=== PATIENT | female | born 1945 | race Caucasian/White ===

== ENCOUNTER → 2023-10-05 12:33 | Outpatient (REF) | payer MEDICARE, OTHER, SELFPAY | LOC: DHVS 12:33 | PROVIDERS: ATTENDING PHYSICIAN Surgery Vascular Surgery; FAMILY PHYSICIAN Family Medicine | DX: I77.9 Disorder of arteries and arterioles, unspecified (principal); I77.1 Stricture of artery | CPT/HCPCS: 93880; 93922; 93923; 93925; 93930 ==

== ENCOUNTER → 2024-01-28 15:51 | Outpatient (REF) | payer MEDICARE, OTHER, SELFPAY | LOC: HWRCS 15:51 | PROVIDERS: ATTENDING PHYSICIAN Internal Medicine Cardiovascular Disease; FAMILY PHYSICIAN Family Medicine | DX: I48.91 Unspecified atrial fibrillation (principal); R06.02 Shortness of breath | CPT/HCPCS: 93306 ==

== ENCOUNTER 2024-03-09 09:04 | Day surgery (SDC) | payer MEDICARE, OTHER, SELFPAY ==
--- NOTE | 2024-03-09 12:09 | ITS.CL.CARDI ---
[facility] - Cardioversion
Cardioversion
Procedure Report:
Procedure: Direct current electrical cardioversion
Pre-operative diagnosis: Persistent atrial fibrillation
Post-operative diagnosis: Persistent atrial fibrillation status post DC cardioversion to sinus rhythm
Anesthesia: MAC
Attending Physician: Matthew Mccray MD
Procedure Description: The patient was brought to the electrophysiology laboratory in the fasting state. Adherence to anticoagulation regimen was confirmed. Informed consent was obtained from the patient prior to the start of the procedure.
Electrodes were placed on the patient and connected to an external defibrillator. Monitoring of blood pressure, ECG tracings, and pulse oximetry was initiated. The pads were applied to the patient in the anterior and posterior positions. The patient
was sedated by the anesthesiologist. A 200 joule biphasic synchronized shock was delivered to the patient under MAC anesthesia. Sinus rhythm was successfully restored. The patient recovered uneventfully from MAC anesthesia. There were no immediate
post-procedure complications. The patient left the lab in good condition. The attending physician was present throughout the entire procedure.
Impression: Successful direct current cardioversion with yarsani of sinus rhythm after one 200 joule biphasic synchronized shock.
== END 2024-03-09 14:00 | disposition home or self-care (01) ==
LOC: CATH 09:04
PROVIDERS: ATTENDING PHYSICIAN Internal Medicine Cardiovascular Disease; FAMILY PHYSICIAN Family Medicine; OTHER PHYSICIAN Internal Medicine Cardiovascular Disease
DX: I48.19 Other persistent atrial fibrillation (principal); Z79.82 Long term (current) use of aspirin; Z79.899 Other long term (current) drug therapy; Z87.891 Personal history of nicotine dependence; R06.02 Shortness of breath; R07.89 Other chest pain; I34.0 Nonrheumatic mitral (valve) insufficiency; I07.1 Rheumatic tricuspid insufficiency; I70.0 Atherosclerosis of aorta
CPT/HCPCS: 93312; 93320; 93325; 92960; 93005

== ENCOUNTER 2024-03-10 09:50 | Inpatient (IN) | payer MEDICARE, OTHER, SELFPAY ==
[2024-03-10] VITALS (11 sets, daily range): BP systolic 107–172; BP diastolic 52–93; BMI 36.0; BMI 32.7
[2024-03-10 06:43] LABS: % Eosinophils 2.5 % (0-6); % Immature Granulocytes 0.6 % (0-0.5); % Lymphocytes 12.5 % (20.5-51.1); % Monocytes 7.4 % (1.7-9.3); Absolute Basophils 0.1 10^3/uL (0-0.2); Absolute Eosinophils 0.2 10^3/uL (0-0.7); Absolute Immature Granulocytes 0.1 10^3/uL (0-0.05); Absolute Monocytes 0.6 10^3/uL (0.1-0.6); Absolute Neutrophils 6.1 10^3/uL (1.4-6.5); Hematocrit 37.6 % (37.0-47.0); Mean Corp Hgb Conc. 34.6 g/dL (33.0-37.0); Mean Corpuscular Volume 86.8 fL (81.0-99.0); Nucleated Red Blood Cells % 0 %; Platelet Count 192 10^3/uL (130-400); Red Blood Cell Count 4.33 10^6/uL (4.20-5.40); Red Cell Dist. Width 12.9 % (11.5-14.5)
--- NOTE | 2024-03-10 06:52 | ED.GENMED ---
History of Present Illness
General
Chief Complaint: Breathing Problem
Source: patient and family
Exam Limitations: none
Time Seen by Provider: 03/10/24 06:38
Nursing documentation reviewed up to this point in time: agreed with
History of Present Illness
History of Present Illness:
78-year-old female presents emergency room complaining of shortness of breath and wheezy chest tightness and itching that began at 3 AM. Yesterday she had cardioversion.
Past History
Past History
ED Past Medical History: Arrthythmia (Atrial fibrillation), Cancer (Skin), GERD, HTN, Hypercholesterolemia, Psychiatric (anxiety) and Other (PAD)
ED Past Surgical History: Cholecystectomy, Gynecological (tubal ligation) and Tonsilectomy
Patient has exhibited threatening behavior?: No
PSI?: No
Social History
Tobacco: Former smoker
Alcohol: None
Personal:
Living: with family
Review of Systems
Review of Systems
Allergies reviewed?: Yes
All Other Systems: Not applicable
Constitutional: Reports no symptoms
EENT: Reports no symptoms
Respiratory: Reports cough and trouble breathing
Cardiac: Reports no symptoms
ABD/GI: Reports no symptoms
: Reports no symptoms
Musculoskeletal: Reports no symptoms
Skin: Reports itching
Neurological: Reports no symptoms
Endocrine: Reports no symptoms
Hematologic/Lymphatic: Reports no symptoms
Psychiatric: Reports no symptoms
Phy Exam
Physical Exam
Physical Exam:
Physical Exam
General: no apparent distress, not acutely ill
Neck: supple. no meningeal signs. normal posterior pharynx
Heart: s1/s2 regular rate and rhythm, no murmur. equal radial
pulses.
HEENT: Pupils equal round reactive to light, EOMI
Lungs: no acute respiratory distress. Mild decreased breath sounds bilaterally bilaterally
Abdomen: normal bowel sounds. not tender. no CVAT
Neuro: alert and oriented. no focal neurological deficits cranial nerves II through XII intact
Skin: no rash
Psychiatric: well kept. interactive and cooperative
Extremities: no edema. no calf tenderness. negative homans. good distal pulses
Scores
Heart Failure Risk
Heart Failure Risk Score: Yes
History of Stroke or TIA: No
History of intubation for respiratory distress: No
Heart rate on ED arrival >/= 110: No
SaO2 <90% on arrival on room air: Yes
HR >/=110 during 3min walk test (or too ill to perform test): No
ECG has acute ischemic changes: No
Urea >/=12mmol/L (BUN 33.6mg/dL): No
Serum CO2>/=35mmol/L: No
Troponin I or T elevated to IL Level (0.4mg/dL): No
NT-proBNP >/=5,000ng/L (5,000pg/ml): No
HF Risk Score: 1
Admission Status: MEDIUM RISK 5.1% Consider observation or discharge to home with homecare & f/u visit to PCP/Field Representatives Director, or SNF for treatment
Course
Orders/Labs/Results
Orders:
Orders
03/10/24 06:34
Electrocardiogram (*1) Urgent
Reason for Study: Other
Other Reason for Exam: Respiratory Distress
Cardiac Monitoring- Treatment ONCE
EKG- Treatment ONCE
IV Insert/Care/Rem.- Treatment PRN
CR Chest - 2 Views Urgent
Comment:
Reason For Exam: respiratory distress
O2 Therapy [RESP] Urgent
Titrate/Wean O2 to maintain O2 sat greater than (%): 93
Special Instructions: TO MAINTAIN CONTINUOUS O2 SATS >/= 93%
Pulse Ox/cont/shift [RESP] Urgent
Quantity: 1
Special Instructions: continuous pulse ox
03/10/24 06:37
Complete Blood Count/With Diff Urgent
Comprehensive Metabolic Panel Urgent
NT-proBNP Urgent
Troponin I Urgent
03/10/24 06:46
Ipratropium/Albuterol Sulfate [Duoneb] 3 ml INH R NOW STA
03/10/24 07:32
Potassium Chloride 10% Elixir [KCl Elixir] 40 meq PO NOW STA
03/10/24 07:33
Potassium Chloride [KCl] 40 meq 0.9% Sodium Chloride 250 ml [Nss] 250 ml IV NOW
Abnormal Lab Results
03/10/24
06:37
MPV 11.0 H fL
(7.4-10.4)
Abs Immat Gran (auto) 0.1 H 10^3/uL
(0-0.05)
Absolute Lymphs (auto) 1.0 L 10^3/uL
(1.2-3.4)
Immature Gran % 0.6 H %
(0-0.5)
Neutrophils % 76.0 H %
(42.2-75.2)
Lymphocytes % 12.5 L %
(20.5-51.1)
Potassium 3.3 L mmol/L
(3.5-5.1)
BUN 22 H mg/dl
(7-17)
Glucose 118 H mg/dl
(70-99)
AST 66 H U/L
(14-36)
ALT 52 H U/L
(0-35)
03/10/24 06:37
03/10/24 06:37
Vital Signs
Initial and Last Documented VS:
Initial Vital Signs
Temp Pulse Resp BP Pulse Ox
98 F 66 26 148/62 94
03/10/24 06:05 03/10/24 06:05 03/10/24 06:05 03/10/24 06:05 03/10/24 06:05
Last Documented Vital Signs
Temp Pulse Resp BP Pulse Ox
98 F 63 19 148/62 94
03/10/24 06:05 03/10/24 06:31 03/10/24 06:31 03/10/24 06:05 03/10/24 06:05
MDM/Problems Addressed
Differential Diagnosis Includes:
Pneumonia, CHF
MDM/Problems Addressed:
78-year-old female with acute CHF exacerbation. Normal sinus rhythm. Hypokalemia. Replete potassium, prior to giving diuretic. Admit to hospitalist.
Chronic conditions affecting care: Arrhythmia
Acute Exacerbation and/or Progression of Chronic Illness: Arrhythmia
*Radiology
Radiology exam reviewed: radiology read reviewed (Chest x-ray shows pulmonary congestion right pleural effusion)
*Pulse Oximetry
Patient hypoxic: yes
*EKG
Interpreted by ED Provider?: Yes
EKG Intrepretation Date: 03/10/24
EKG Intrepretation Time: :24
Interpretation: abnormal
Comparison EKG: changes noted
Heart Rate: 64
Rate: normal
Rhythm: sinus and PVC's
[place]: normal axis
Interval: normal interval
QRS Pattern: normal QRS
Ischemia: non-specific ST changes
*Motor Teacher Interpretation
Rate: normal
Interpretation: normal
Heart Rate: 66
Rhythm: sinus
*Critical Care Note
Total Time (30-74mins, 75-104mins- exclusive of procedures): Not Applicable
Data Reviewed
Review of Other/Old Records Reveals: Records (MADELAINE, cardioversion on 03/09/[address] Villatoro.)
Source: records
Prescriptions/Medications Considered But Not Given:
Lasix held until potassium repleted
Further Testing Considered But Not Given:
CT chest not indicated
Patient Management
Social determinants of health affecting care: Living situation
Discussion with other providers: Hospitalist
Escalation/DeEscalation of care consider admission/obs:
Admit indicated
ED Attending Note
-
Portions of this chart may have been created with voice recognition software.� Occasional wrong word or��sound alike� substitutions may have occurred due to the inherent limitations of voice recognition software.
Discharge Plan
Departure
Patient Disposition: Admit
Date of Disposition: 03/10/24
Time of Disposition: 07:33
Admit to: Telemetry
Presentation/result/management discussed w/ accepting MD/DO: Hospitalist
Patient with high blood pressure during this ER visit?: Yes
Discharge Problem:
Acute exacerbation of chronic heart failure, Hypoxia, Acute hypokalemia
Prescriptions:
No Action
cholecalciferol (vitamin D3) 1,000 UNITS tablet
2,000 units PO DAILY
cyanocobalamin (vitamin B-12) 1,000 MCG tablet
1,000 mcg PO DAILY
flaxseed oil 1,000 MG capsule
1,000 mg PO DAILY
diazepam 5 MG tablet
5 - 10 mg PO HSPRN PRN (Reason: ANXIETY)
coenzyme Q10 [Co Q-10] 200 MG capsule
200 mg PO DAILY
turmeric 400 MG capsule
500 mg PO DAILY
ascorbic acid (vitamin C) [Vitamin C] 500 MG tablet
500 mg PO DAILY
hydrochlorothiazide 25 mg tablet
25 mg PO DAILY
famotidine [Pepcid] 40 mg Tablet
40 mg PO DAILYPRN PRN (Reason: gerd)
diltiazem HCl 180 mg Capsule,Extended Release 24hr
180 mg PO DAILY Qty: 30 11RF
Eliquis 5 mg Tablet
5 mg PO BID Qty: 60 11RF
Aspir-81
81 mg PO DAILY
metoprolol succinate 25 mg Tablet Extended Release 24 Hr
25 mg PO BID
Referrals:
Chucky Pierre MD [Family Provider] -
Interventions
Interventions:
*Risk Screen - Suicide Last Done: 03/10/24 06:31
*General Assessment Last Done: 03/10/24 06:31
*Neglect/Abuse Screening Last Done: 03/10/24 06:31
ED- Fall Risk Assessment Last Done: 03/10/24 06:31
*ED COVID-19 Vaccine History Last Done: 03/10/24 06:31
ED- Cardiac Assessment Last Done: 03/10/24 06:31
ED- Pulmonary Assessment Last Done: 03/10/24 06:31
Discharge Date and Time
Print Language: LITHUANIAN
[2024-03-10 07:02] LABS: ALT (SGPT) 52 U/L (0-35); AST (SGOT) 66 U/L (14-36); Albumin 3.9 g/dl (3.5-5.0); Alkaline Phosphatase 71 U/L (38-126); Blood Urea Nitrogen 22 mg/dl (7-17); Calcium 8.9 mg/dl (8.4-10.2); Carbon Dioxide 29 mmol/L (22-30); Chloride 103 mmol/L (98-107); Estimated Creatinine Clearance 67 ml/min; Glucose 118 mg/dl (70-99); Potassium 3.3 mmol/L (3.5-5.1); Sodium 137 mmol/L (135-145); Total Bilirubin 1.3 mg/dl (0.2-1.3); Total Protein 6.4 g/dl (6.3-8.2); eGFR > 60.00
[2024-03-10 07:12] LABS: NT-proBNP 2250 pg/ml; Troponin I < 0.012 ng/ml
--- NOTE | 2024-03-10 07:49 | HPS.HSE ---
Family Physician
-
Family Physician: Chucky Pierre
Chief Complaint
-
Shortness of breath
History of Present Illness
78 female paroxysmal A-fib peripheral arterial disease hyperlipidemia hypertension obesity presents with acute shortness of breath following cardioversion 1 day prior to presentation. Describes ongoing exertional dyspnea since she was first
diagnosed with A-fib exercise intolerance. Became short of breath at rest while sleeping at night prompting visit to ED. Reports chest tightness with shortness of breath denies pain palpitations fevers chills coughing constipation. Tachypneic but
otherwise vital signs stable on 2 L oxygen for comfort. Chest x-ray appreciated borderline CHF small left pleural effusion. EKG noted premature supraventricular complexes otherwise normal sinus rhythm. Heart rate controlled. BNP elevated 2250.
Endorses weight gain unspecified amount duration difficulty lying flat orthopnea. Ambulates without assist at baseline
Medical History
Past Medical History
Past Medical History: Reports Other (As above)
Past Surgical History: Reports Other (As above)
Social History
Tobacco: Former Smoker
Alcohol: None
Drug: None
Personal:
Living: With Family
Family History
Family History: Not pertinent (Reviewed)
Allergies / Home Medications
Allergies reflects when Allergies were last updated in [facility].
Home Medications with original date entered in [facility]
Allergy/Medication List:
Allergies
Allergy/AdvReac Type Severity Reaction Status Date / Time
amlodipine Allergy Unknown Verified 03/10/24 07:23
amoxicillin Allergy Pt does Verified 03/10/24 06:05
not
belieive
this is an
allergy
benazepril Allergy Hives Verified 03/10/24 06:05
codeine Allergy Nausea / Verified 03/10/24 06:05
Vomiting
dextromethorphan Allergy Itching, Verified 03/10/24 06:05
[From NyQuil] migraine
doxylamine [From NyQuil] Allergy Itching, Verified 03/10/24 06:05
migraine
gatifloxacin [From Tequin] Allergy Shortness Verified 03/10/24 06:05
of Breath,
Hives
hydromorphone [From Dilaudid] Allergy headache Verified 03/10/24 06:05
pseudoephedrine [From NyQuil] Allergy Itching, Verified 03/10/24 06:05
migraine
red dye Allergy Hives Verified 03/10/24 06:05
Gnottzh-[id number]-TfV Reductase Allergy Aches Verified 03/10/24 06:05
Inhibitor
trifluoperazine Allergy seizure - Verified 03/10/24 06:05
[From Stelazine] 1974
Home Medications
cholecalciferol (vitamin D3) 25 mcg (1,000 unit) tablet 1,000 units PO NOON Supplement 01/09/22
coenzyme Q10 200 mg capsule (Co Q-10) 200 mg PO NOON Supplement 01/09/22
cyanocobalamin (vitamin B-12) 1,000 mcg tablet 1,000 mcg PO NOON Supplement 01/09/22
diazepam 5 mg tablet 5 - 10 mg PO HSPRN PRN ANXIETY 01/09/22
flaxseed oil 1,000 mg capsule 1,000 mg PO NOON herbal supplement 01/09/22
turmeric 400 mg capsule 400 mg PO NOON herbal supplement 01/09/22
ascorbic acid (vitamin C) 500 mg tablet (Vitamin C) 500 mg PO NOON Supplement 01/19/22
hydrochlorothiazide 25 mg tablet 25 mg PO DAILY Fluid retention/Swelling 11/24/22
apixaban 5 mg tablet (Eliquis) 5 mg PO BID Blood clot prevention/tx #60 tabs 05/31/23
metoprolol succinate 25 mg tablet,extended release 24 hr 25 mg PO BID 03/09/24
aspirin 81 mg tablet,delayed release 81 mg PO DAILY 03/10/24
famotidine 20 mg tablet (Pepcid) 20 mg PO DAILYPRN PRN gerd 03/10/24
magnesium oxide 400 mg (241.3 mg magnesium) tablet 400 mg PO NOON 03/10/24
Review of Systems
-
A 12 point ROS was completed and negative except as noted: Yes
Constitutional: Reports Other (As below)
Physical Exam
Vital Signs
Vital Signs
Temp Pulse Resp BP Pulse Ox
98 F 63 19 148/62 95
03/10/24 06:05 03/10/24 06:31 03/10/24 06:31 03/10/24 06:05 03/10/24 07:24
Physical Exam
General: Other (As below)
Laboratory Results
-
03/10/24 06:37
03/10/24 06:37
Laboratory Results
Total Bilirubin 1.3 mg/dl (0.2-1.3) 03/10/24 06:37
AST 66 U/L (14-36) H 03/10/24 06:37
ALT 52 U/L (0-35) H 03/10/24 06:37
Alkaline Phosphatase 71 U/L (38-126) 03/10/24 06:37
Troponin I < 0.012 ng/ml 03/10/24 06:37
Impression/Plan
-
ROS
General: Denies fever chills night sweats unexpected weight loss
Neuro: Denies seizure shaking loss of consciousness dizziness vertigo
Psych: denies depression hallucinations confusion manic episodes
Endocrine: Denies polyuria polydipsia polyphagia heat/cold intolerance
HEENT: Denies blindness visual disturbances epistaxis
Pulmonary: reports sob
Cardiovascular: Reports chest tightness denies chest pain palpitations leg swelling
Hematology: denies signs symptoms of anemia easy bruising/bleeding
Gastrointestinal: denies nausea vomiting diarrhea constipation hematemesis hematochezia melena
Genito-Urinary: denies retention incontinence dysuria
Musculoskeletal: denies joint pain weakness
Dermatology: denies rash laceration bruising
Physical Exam
General: No pallor, cyanosis, or jaundice.
HEENT: Throat clear. PERRLA Normocephalic atraumatic
NECK: Supple. No JVD Carotid Bruits
RESPIRATORY: Bibasilar crackles mild
CVS: S1, S2 normal. RRR. No murmur, rub or gallop.
ABDOMEN: Soft, non-tender. No distension. BS+/normal.
EXTREMITIES: No peripheral cyanosis or edema.
VISUAL COORDINATOR: AOx3. No focal deficits.
IMPRESSION:
78 female paroxysmal A-fib peripheral arterial disease hyperlipidemia hypertension obesity presents with acute shortness of breath following cardioversion 1 day prior to presentation. Describes ongoing exertional dyspnea since she was first
diagnosed with A-fib exercise intolerance. Became short of breath at rest while sleeping at night prompting visit to ED. Reports chest tightness with shortness of breath denies pain palpitations fevers chills coughing constipation. Tachypneic but
otherwise vital signs stable on 2 L oxygen for comfort. Chest x-ray appreciated borderline CHF small left pleural effusion. EKG noted premature supraventricular complexes otherwise normal sinus rhythm. Heart rate controlled. BNP elevated 2250.
Endorses weight gain unspecified amount duration difficulty lying flat orthopnea. Ambulates without assist at baseline
PLAN:
#Suspected acute HFpEF
#A-fib status post successful cardioversion
Telemetry admit
Cardio eval
IV Lasix 20 mg twice daily
Daily weight I/O
Recent MADELAINE appreciated preserved EF 55 to 60% no significant valve abnormalities
BNP 2200s, initial troponin negative repeat if remains negative no need to trend
Continue Eliquis metoprolol with holding parameters
PT OT eval
#Hypokalemia
monitor and replete as necessary especially while on lasix diuresis
#PAD
#Hyperlipidemia
Continue aspirin
Cholesterol-lowering diet
#Hypertension
Hold HCTZ while on Lasix
Continue metoprolol as above
#Obesity
DVT prophylaxis Eliquis
Meds reconciled and resume as appropriate
Full code
Discussed with patient and patient's daughter Yaritza at bedside
I spent a total of 80 minutes with the patient or on the floor. More than 50% of this time involved counseling and coordination of care.
[2024-03-10] MEDS: KCL ELIXIR 40 MEQ PO (07:52)
[2024-03-10] MEDS: KCL 270 MEQ IV (07:54)
--- NOTE | 2024-03-10 11:38 | PTCARENOTE ---
received pt from the ER into 2244, sinus rhythm on tele, VSS, pox 96% on 2L NC. Interview questions and nursing assessment completed. Pt was oriented to tele room, questions encouraged.
--- NOTE | 2024-03-10 11:40 | CON.CAR ---
Addendum entered and electronically signed by Matthew Mccray MD 03/10/24 15:35:
I saw and examined the patient.
The District Director's note was reviewed and I agree with the note.
Comment: Briefly, 78-year-old woman past medical history of persistent atrial fibrillation who presents with dyspnea found to be hypoxic with elevated proBNP and evidence of pulmonary vascular congestion on chest x-ray all consistent with acute
decompensated heart failure
Plan for twice daily IV Lasix
Wean oxygen as able
Monitor daily weights, renal function and electrolytes
Given hypokalemia she may be a good candidate for spironolactone, will add to start tomorrow AM
Plan to discharge on Lasix in place of hydrochlorothiazide
Currently maintaining sinus rhythm after direct-current cardioversion on 03/09/2024
Continue metoprolol
Continue Eliquis for cardioembolic prophylaxis
Scheduled for pulmonary vein isolation later this month with Dr. Aldana
Original Note:
Consultation
Consultation Request
Date/Time Consultation Performed: 03/10/24
Requesting Provider: Dr. Culver
Performing Provider: Izabela Rm PA-C for Dr. Mccray
Reason for Consultation: CHF
Medical History
-
Chief Complaint: SOB
History of Present Illness:
Patient with history of PAF on eliquis, scheduled for upcoming ablation with Dr. Nick 03/28/24 underwent successful MADELAINE/CV 03/09 at . She reports over the last several days she had noted bloating in her belly, however then last night post CV had
SOB causing her to return to [facility] this morning. ProBNP 2250 and CXR with evidence of small L pleural effusion and CHF. Reports some chest tightness associated with taking deep breath but no CP. In SR by EKG/tele.
PMH:
Paroxysmal Afib s/p successful MADELAINE/CV 03/09/24
OAC with eliquis
Multiple medication intolerances
PAD
s/p left femoral endarterectomy 2021
right subclavian stenosis
Hyperlipidemia with statin and Zetia intolerance
HTN
Past Medical History
Past Medical History: Other
Past Surgical History: Cholecystectomy, Tonsilectomy and Other (Left femoral endarterectomy 03/2022)
Social History
Tobacco: Former Smoker
Alcohol: None
Drug: None
Personal:
Living: With Family
Family History
Family History: Other (father with CAD s/p CABG and Afib, daughter from multiple myeloma in 2020)
Allergies / Home Medications
Allergy/AdvReac Type Severity Reaction Status Date / Time
amlodipine Allergy Unknown Verified 03/10/24 07:23
amoxicillin Allergy Pt does Verified 03/10/24 06:05
not
belieive
this is an
allergy
benazepril Allergy Hives Verified 03/10/24 06:05
codeine Allergy Nausea / Verified 03/10/24 06:05
Vomiting
dextromethorphan Allergy Itching, Verified 03/10/24 06:05
[From NyQuil] migraine
doxylamine [From NyQuil] Allergy Itching, Verified 03/10/24 06:05
migraine
gatifloxacin [From Tequin] Allergy Shortness Verified 03/10/24 06:05
of Breath,
Hives
hydromorphone [From Dilaudid] Allergy headache Verified 03/10/24 06:05
pseudoephedrine [From NyQuil] Allergy Itching, Verified 03/10/24 06:05
migraine
red dye Allergy Hives Verified 03/10/24 06:05
Igyzrvy-XJH-NnW Reductase Allergy Aches Verified 03/10/24 06:05
Inhibitor
trifluoperazine Allergy seizure - Verified 03/10/24 06:05
[From Stelazine] 1974
�Medication �Instructions �Recorded �Confirmed �Type
cholecalciferol (vitamin D3) 25 1,000 units PO NOON Supplement 01/09/22 03/10/24 History
mcg (1,000 unit) tablet
coenzyme Q10 200 mg capsule (Co 200 mg PO NOON Supplement 01/09/22 03/10/24 History
Q-10)
cyanocobalamin (vitamin B-12) 1,000 mcg PO NOON Supplement 01/09/22 03/10/24 History
1,000 mcg tablet
diazepam 5 mg tablet 5 - 10 mg PO HSPRN PRN ANXIETY 01/09/22 03/10/24 History
flaxseed oil 1,000 mg capsule 1,000 mg PO NOON herbal supplement 01/09/22 03/10/24 History
turmeric 400 mg capsule 400 mg PO NOON herbal supplement 01/09/22 03/10/24 History
ascorbic acid (vitamin C) 500 mg 500 mg PO NOON Supplement 01/19/22 03/10/24 History
tablet (Vitamin C)
hydrochlorothiazide 25 mg tablet 25 mg PO DAILY Fluid 11/24/22 03/10/24 History
retention/Swelling
apixaban 5 mg tablet (Eliquis) 5 mg PO BID Blood clot 05/31/23 03/10/24 Rx
prevention/tx #60 tabs
metoprolol succinate 25 mg 25 mg PO BID 03/09/24 03/10/24 History
tablet,extended release 24 hr
aspirin 81 mg tablet,delayed 81 mg PO DAILY 03/10/24 03/10/24 History
release
famotidine 20 mg tablet (Pepcid) 20 mg PO DAILYPRN PRN gerd 03/10/24 03/10/24 History
magnesium oxide 400 mg (241.3 mg 400 mg PO NOON 03/10/24 03/10/24 History
magnesium) tablet
Review of Systems
-
History Source: Patient and Family
All other systems: Negative unless noted
Physical Exam
Vital Signs
Temp Pulse Resp BP Pulse Ox
98 F 67 25 172/86 94
03/10/24 06:05 03/10/24 11:00 03/10/24 10:45 03/10/24 10:55 03/10/24 10:30
Lab Results
03/10/24 06:37
03/10/24 06:37
Troponin I < 0.012 ng/ml 03/10/24 06:37
Glg-J-Eotuxreydts Pept 2250 pg/ml 03/10/24 06:37
Physical Exam
General: No Apparent Distress, Comfortable and Other (on supp O2)
HEENT: Normocephalic, Anicteric and Moist Mucous Membranes
Respiratory: Crackles (B/L lung bases)
Cardiac: S1/S2 and Regular Rhythm
GI: Soft, Non Tender, Normal Bowel Sounds and Distended (mild)
Musculoskeletal: No Clubbing, No Cyanosis and No Edema
Skin: Warm and Dry
Neuro: AO x 3
Impression / Plan
-
Primary Sausage Wrapper: Dr. Mccray
Primary EP: Dr. Nick
Assessment:
Presentation with SOB
Acute HFpEF
Hypokalemia
Mild transaminitis, possible passive congestion from above
Paroxysmal Afib s/p successful MADELAINE/CV 03/09/24
OAC with eliquis
Multiple medication intolerances
PAD
s/p left femoral endarterectomy 2021
right subclavian stenosis
Hyperlipidemia with statin and Zetia intolerance
HTN
ECHO 01/28/24: EF 61%, no regional wall motion abnormalities noted, mild concentric LVH, mild MR, mild TR, PAP 25-30 mmHg
Plan:
-Patient presents with SOB
-proBNP 2250 and CXR with evidence of CHF
-trop negative x1
-IV lasix diuresis. on HCTZ 25mg daily prior to admission, will hold for now
-replete K
-with mild LFT elevation, follow with diuresis, possible passive congestion
-wean supp O2 as able
-echo 01/27 with preserved EF, confirmed by MADELAINE 03/09
-fortunately remains in SR by review of EKG/tele
-continue toprol, eliquis
-planned for ablation 03/28, will keep appt
-d/w nursing. d/w patient and daughter at bedside
Data Reviewed
-
EKG: Tracing Personally Visualized and interpreted
Radiology: Report Reviewed by me
Medical Tests (Nuc Med, Echo etc): Report Reviewed by me
Labs: Labs Reviewed by me
Old Records: Reviewed
[2024-03-10] MEDS: MAG-TAB SR 84 MG PO (11:57)
[2024-03-10] MEDS: VITAMIN C 500 MG PO (11:57)
[2024-03-10] MEDS: VITAMIN D3 (cholecalciferol) 25 MCG PO (11:57)
[2024-03-10] MEDS: VITAMIN B-12 1000 MCG PO (11:57)
[2024-03-10] MEDS: ASPIR LOW (ENTERIC COATED) 81 MG PO (11:57)
[2024-03-10] MEDS: TOPROL XL 25 MG PO ×2 (11:57→21:42)
[2024-03-10] MEDS: ELIQUIS 5 MG PO ×2 (11:57→20:26)
[2024-03-10] MEDS: LASIX 20 MG IV ×2 (11:58→16:15)
--- NOTE | 2024-03-10 12:50 | CM ---
Reviewed chart. Met with Mrs. Alexandre and her daughter to review discharge plans. She states prior to admission she resides with her spouse in a one story home without any steps to enter. She has a full flight of steps to get to basement for the
laundry room. She states prior to admission she was independent with ambulation and adls. She states she does not have any DME in the home. She states she has a prescription plan and uses [facility]. She states she has not needed [facility]NA
services in the past. She does not feel she will need VNA Services at this time. Medical work-up in progress. The discharge plan is to return home with her spouse when medically stable.
[2024-03-10 13:17] LABS: Troponin I < 0.012 ng/ml
[2024-03-10 15:01] LABS: TSH Reflex To Free T4 1.32 uIU/ml (0.47-4.68)
--- NOTE | 2024-03-10 17:00 | PTCARENOTE ---
Assumed care of Pt, Rossana,A+O, offers no complaints, currently eating her dinner.
[2024-03-10] MEDS: KLOR-CON 20 MEQ PO (20:26)
[2024-03-10] MEDS: TYLENOL 650 MG PO (21:41)
[2024-03-11] VITALS (11 sets, daily range): BP systolic 80–136; BP diastolic 47–87; BMI 32.0
--- NOTE | 2024-03-11 01:03 | PTCARENOTE ---
Received patient at change of shift. Resting in chair. BP 109/71, NSR with PACs, HR 70s-90s. Rate increases with exertion. Oxyen 94% on 2L, dyspnic with exertion. Patient ambulating in room and to bathroom. C/o headache, reached out to [facility]
[place] about PRN tylenol. Given for pain-- see MAR. Discussed plan of care and strict I/Os, importance of urine collection and daily weights. Call samaniego within reach.
[2024-03-11 04:57] LABS: Hematocrit 36.1 % (37.0-47.0); Hemoglobin 12.7 g/dL (12.0-16.0); Mean Corp Hgb Conc. 35.2 g/dL (33.0-37.0); Mean Corpuscular Hgb 30.6 pg (27.0-31.0); Mean Platelet Volume 10.8 fL (7.4-10.4); Platelet Count 180 10^3/uL (130-400); Red Blood Cell Count 4.15 10^6/uL (4.20-5.40); White Blood Cell Count 6.5 10^3/uL (4.8-10.8)
[2024-03-11 05:21] LABS: Blood Urea Nitrogen 14 mg/dl (7-17); Calcium 8.4 mg/dl (8.4-10.2); Carbon Dioxide 29 mmol/L (22-30); Chloride 102 mmol/L (98-107); Estimated Creatinine Clearance 90 ml/min; Glucose 94 mg/dl (70-99); Magnesium 1.9 mg/dl (1.6-2.3); Phosphorus 3.7 mg/dl (2.5-4.5); Potassium 3.3 mmol/L (3.5-5.1); Sodium 137 mmol/L (135-145); eGFR > 60.00
--- NOTE | 2024-03-11 05:35 | PTCARENOTE ---
Patient's K came back 3.3 this AM. Reached out to Gail Flor NP. Order placed for an extra dose of Klor-Con 20 meq. See MAR.
[2024-03-11] MEDS: KLOR-CON 20 MEQ PO ×3 (05:43→20:42)
--- NOTE | 2024-03-11 07:12 | W.PN.HOSP.TC ---
Today's Communication/Plan
-
Diuresis Aldactone as per Cardio
Wean O2 supplementation as tolerated
Home oxygen assessment in AM
cont Eliquis metoprolol
monitor and replete electrolytes as necessary
Assessment / Plan
Assessment / Plan
Physical Exam
General: No pallor, cyanosis, or jaundice.
HEENT: Throat clear. PERRLA Normocephalic atraumatic
NECK: Supple. No JVD Carotid Bruits
RESPIRATORY: clear to auscultation b/l
CVS: S1, S2 normal. RRR. No murmur, rub or gallop.
ABDOMEN: Soft, non-tender. No distension. BS+/normal.
EXTREMITIES: No peripheral cyanosis or edema.
ARCHIVAL STUDIES PROFESSOR: AOx3. No focal deficits.
IMPRESSION:
78 female paroxysmal A-fib peripheral arterial disease hyperlipidemia hypertension obesity presents with acute shortness of breath following cardioversion 1 day prior to presentation. Describes ongoing exertional dyspnea since she was first
diagnosed with A-fib exercise intolerance. Became short of breath at rest while sleeping at night prompting visit to ED. Reports chest tightness with shortness of breath denies pain palpitations fevers chills coughing constipation. Tachypneic but
otherwise vital signs stable on 2 L oxygen for comfort. Chest x-ray appreciated borderline CHF small left pleural effusion. EKG noted premature supraventricular complexes otherwise normal sinus rhythm. Heart rate controlled. BNP elevated 2250.
Endorses weight gain unspecified amount duration difficulty lying flat orthopnea. Ambulates without assist at baseline
PLAN:
#Acute HFpEF
#A-fib status post successful cardioversion
Telemetry admit
Cardio eval appreciated Aldactone added
IV Lasix 40 mg twice daily as per Cardio
Daily weight I/O
Recent MADELAINE appreciated preserved EF 55 to 60% no significant valve abnormalities
BNP 2200s,Troponin neg x2
Continue Eliquis metoprolol with holding parameters
PT OT eval
#Hypokalemia
monitor and replete as necessary especially while on Lasix diuresis
#PAD
#Hyperlipidemia
Continue aspirin
Cholesterol-lowering diet
#Hypertension
Hold HCTZ while on Lasix
Continue metoprolol as above
#Obesity
DVT prophylaxis Eliquis
Full code
I spent a total of 57 minutes with the patient or on the floor. More than 50% of this time involved counseling and coordination of care.
Anticipated Discharge: 24 - 48 hours
Subjective/Interval History
-
Date of Service: March 11, 2024
No acute distress sitting up comfortably in chair. Reports overall improvement in symptoms. Appears to have lost 11 lbs since start of diuresis, if [employer] recorded weights are accurate. Denies shortness of breath at rest. Reports ambulating to
and from bed and bathroom w/o issues exertional dyspnea.
Objective Data
-
Labs:
Laboratory Results
03/11/24
04:32
WBC 6.5
Hgb 12.7
Hct 36.1 L
Plt Count 180
Sodium 137
Potassium 3.3 L
Chloride 102
Carbon Dioxide 29
BUN 14
Creatinine 0.6
Glucose 94
Calcium 8.4
Vital Signs:
Vital Signs
Temp Pulse Resp BP Pulse Ox
97.8 F 82 16 133/73 95
03/11/24 04:57 03/11/24 04:45 03/11/24 04:57 03/11/24 04:32 03/11/24 04:57
I&O
03/10/24 03/11/24 03/12/24
06:59 06:59 06:59
Intake Total 350 / 350
Output Total 2260 / 2260
Balance -1909 / -1909
[2024-03-11] MEDS: ASPIR LOW (ENTERIC COATED) 81 MG PO (08:16)
[2024-03-11] MEDS: LASIX 20 MG IV (08:16)
[2024-03-11] MEDS: TOPROL XL 25 MG PO ×2 (08:16→20:42)
[2024-03-11] MEDS: ELIQUIS 5 MG PO ×2 (08:16→20:42)
[2024-03-11] MEDS: ALDACTONE 25 MG PO (08:32)
--- NOTE | 2024-03-11 08:39 | W.PN.CARDCBS ---
Addendum entered and electronically signed by Matthew Mccray MD 03/11/24 15:47:
I saw and examined the patient.
The Liquefied Petroleum Gasfitter's note was reviewed and I agree with the note.
Comment: Briefly, 78-year-old woman past medical history of persistent atrial fibrillation presenting with acute heart failure with preserved ejection fraction
Volume status improving with diuretics, would continue IV diuresis
Remains on supplemental oxygen, wean as able
Aldactone added this morning
In regards to her A-fib, would continue metoprolol and apixaban
Monitor on telemetry, would consider adding amiodarone to maintain sinus rhythm through her ablation which is scheduled later this month
Original Note:
Today's Communication / Plan
-
Continue IV Lasix
Wean supplemental oxygen
Add amiodarone as brief paroxysms of A-fib noted on telemetry overnight
EKG in a.m. to reassess QTc
Replete K. Follow LFTs
Impression / Plan
-
Primary Tourist Camp Attendant: Dr. Mccray
Primary EP: Dr. Nick
Assessment:
Presentation with SOB
Acute HFpEF
Hypokalemia
Mild transaminitis, possible passive congestion from above
Paroxysmal Afib s/p successful MADELAINE/CV 03/09/24
OAC with eliquis
Multiple medication intolerances
PAD
s/p left femoral endarterectomy 2021
right subclavian stenosis
Hyperlipidemia with statin and Zetia intolerance
HTN
ECHO 01/28/24: EF 61%, no regional wall motion abnormalities noted, mild concentric LVH, mild MR, mild TR, PAP 25-30 mmHg
Plan:
-Patient presents with SOB. proBNP 2250 and CXR with evidence of CHF
-she is diuresing well. continue IV lasix. was on HCTZ prior to admission, will plan to transition to lasix upon DC
-replete K
-follow LFTs with diuresis
-wean supp O2 as able
-on review of tele overnight, patient noted to have several brief runs of afib. she was asymptomatic. currently in SR. she is planned for ablation 03/28. discussed addition of AAD with amiodarone as bridge to ablation. will place on 200mg TID. EKG in
AM to assess QTc
-continue toprol, eliquis
-echo 01/27 with preserved EF, confirmed by MADELAINE 03/09
-will have office call patient with follow up appt
Progress Note - Tourist Camp Attendant
Subjective
Date of Service: March 11, 2024
Reports breathing is better. No palpitations
Objective
Labs:
03/11/24 04:32
03/11/24 04:32
Labs
Hgb 12.7 g/dL (12.0-16.0) 03/11/24 04:32
Hct 36.1 % (37.0-47.0) L 03/11/24 04:32
Plt Count 180 10^3/uL (130-400) 03/11/24 04:32
Sodium 137 mmol/L (135-145) 03/11/24 04:32
Potassium 3.3 mmol/L (3.5-5.1) L 03/11/24 04:32
BUN 14 mg/dl (7-17) 03/11/24 04:32
Creatinine 0.6 mg/dL (0.6-1.0) 03/11/24 04:32
Glucose 94 mg/dl (70-99) 03/11/24 04:32
Troponins
03/10/24 03/10/24
06:37 12:40
Troponin I < 0.012 < 0.012
Vital Signs and I&O:
Vital Signs
Temp Pulse Resp BP Pulse Ox
97.6 F 54 18 120/57 95
03/11/24 08:34 03/11/24 08:16 03/11/24 08:34 03/11/24 08:16 03/11/24 04:57
Vital Signs
Temp Pulse Resp BP Pulse Ox
97.6 F 54 18 120/57 95
03/11/24 08:34 03/11/24 08:16 03/11/24 08:34 03/11/24 08:16 03/11/24 04:57
Intake & Output
03/09/24 03/10/24 03/11/24 03/12/24
07:59 07:59 07:59 07:59
Intake Total 350 / 350
Output Total 2260 / 2260
Balance -1909 / -1909
Physical Exam
Physical Exam
GEN: No distress, awake, alert, oriented x 3. On supplemental oxygen
HEENT: supple, anicteric, mmm, EOMI
LUNGS: CTA bilaterally, no wheezes/rales
CV: Reg, S1/S2, no murmur
ABD: soft, BS+, NT/ND
EXT: No cyanosis, clubbing, edema
NEURO: Gross non-focal
SKIN: Warm, pink, dry. No rash
[2024-03-11] MEDS: TYLENOL 650 MG PO (10:25)
[2024-03-11 10:44] LABS: ALT (SGPT) 43 U/L (0-35); AST (SGOT) 35 U/L (14-36); Albumin 3.5 g/dl (3.5-5.0); Alkaline Phosphatase 63 U/L (38-126); Direct Bilirubin 0.2 mg/dl (0.0-0.4); Total Bilirubin 1.5 mg/dl (0.2-1.3); Total Protein 5.9 g/dl (6.3-8.2)
[2024-03-11] MEDS: VITAMIN B-12 1000 MCG PO (13:58)
[2024-03-11] MEDS: MAG-TAB SR 84 MG PO (13:58)
[2024-03-11] MEDS: VITAMIN D3 (cholecalciferol) 25 MCG PO (13:58)
[2024-03-11] MEDS: VITAMIN C 500 MG PO (13:58)
[2024-03-11] MEDS: LASIX 40 MG IV (16:20)
--- NOTE | 2024-03-11 17:22 | PTCARENOTE ---
Pt noted to be in uncontrolled a fib, 120's to 130's. Pt c/o fluttering in her chest and sob. VSS, EKG obtained, nasal cannula O2 maintained at 2 liters. notified. Will monitor.
[2024-03-11] MEDS: PACERONE 400 MG PO ×2 (17:39→22:46)
[2024-03-12] VITALS (9 sets, daily range): BP systolic 95–140; BP diastolic 60–97; PULSE 90–95; O2SAT 98–99; BMI 31.6
[2024-03-12 04:48] LABS: Hemoglobin 14.1 g/dL (12.0-16.0); Mean Corp Hgb Conc. 34.4 g/dL (33.0-37.0); Mean Corpuscular Hgb 30.9 pg (27.0-31.0); Mean Corpuscular Volume 89.9 fL (81.0-99.0); Mean Platelet Volume 10.7 fL (7.4-10.4); Platelet Count 186 10^3/uL (130-400); Red Blood Cell Count 4.56 10^6/uL (4.20-5.40); Red Cell Dist. Width 12.8 % (11.5-14.5); White Blood Cell Count 6.4 10^3/uL (4.8-10.8)
[2024-03-12 05:19] LABS: Blood Urea Nitrogen 16 mg/dl (7-17); Carbon Dioxide 31 mmol/L (22-30); Chloride 99 mmol/L (98-107); Estimated Creatinine Clearance 67 ml/min; Glucose 102 mg/dl (70-99); Magnesium 1.9 mg/dl (1.6-2.3); Phosphorus 3.7 mg/dl (2.5-4.5); Potassium 4.2 mmol/L (3.5-5.1); Sodium 134 mmol/L (135-145); eGFR > 60.00
--- NOTE | 2024-03-12 07:53 | W.PN.HOSP.TC ---
Today's Communication/Plan
-
IV diuresis
Daily weights I/O
PT/OT
Rate Rhythm Control as per Cardio
NPO after midnight for possible cardioversion if remains in afib
Assessment / Plan
Assessment / Plan
Physical Exam
General: No pallor, cyanosis, or jaundice.
HEENT: Throat clear. PERRLA Normocephalic atraumatic
NECK: Supple. No JVD Carotid Bruits
RESPIRATORY: clear to auscultation b/l
CVS: S1, S2 normal. RRR. No murmur, rub or gallop.
ABDOMEN: Soft, non-tender. No distension. BS+/normal.
EXTREMITIES: No peripheral cyanosis or edema.
FACTORY FOCUS TECHNICIAN: AOx3. No focal deficits.
IMPRESSION:
78 female paroxysmal A-fib peripheral arterial disease hyperlipidemia hypertension obesity presents with acute shortness of breath following cardioversion 1 day prior to presentation. Describes ongoing exertional dyspnea since she was first
diagnosed with A-fib exercise intolerance. Became short of breath at rest while sleeping at night prompting visit to ED. Reports chest tightness with shortness of breath denies pain palpitations fevers chills coughing constipation. Tachypneic but
otherwise vital signs stable on 2 L oxygen for comfort. Chest x-ray appreciated borderline CHF small left pleural effusion. EKG noted premature supraventricular complexes otherwise normal sinus rhythm. Heart rate controlled. BNP elevated 2250.
Endorses weight gain unspecified amount duration difficulty lying flat orthopnea. Ambulates without assist at baseline
PLAN:
#Acute HFpEF
#A-fib status cardioversion unfortunately back in afib
Telemetry admit
Cardio eval appreciated Aldactone added subsequently placed on hold if soft pressures and addition Amiodarone load for afib
IV Lasix 40 mg twice daily as per Cardio
Daily weight I/O
Recent MADELAINE appreciated preserved EF 55 to 60% no significant valve abnormalities
BNP 2200s,Troponin neg x2
Continue Eliquis metoprolol with holding parameters
npo after midnight for repeat cardioversion if remains in afib as per cardio.
PT/OT appreciated Home Health
Weaned off oxygen supplementation
Home oxygen assessment appreciated no need
#Hypokalemia
monitor and replete as necessary especially while on Lasix diuresis
started on scheduled potassium 20 mEQ BID
#PAD
#Hyperlipidemia
Continue aspirin
Cholesterol-lowering diet
#Hypertension
Hold HCTZ while on Lasix
Continue metoprolol as above
#Obesity
DVT prophylaxis Eliquis
Full code
I spent a total of 57 minutes with the patient or on the floor. More than 50% of this time involved counseling and coordination of care.
Anticipated Discharge: 24 - 48 hours
Subjective/Interval History
-
Date of Service: March 12, 2024
Seen and examined at bedside sitting up comfortably chair. No acute distress but reports general malaise. Remains on oxygen. Back in afib rate controlled
Objective Data
-
Labs:
Laboratory Results
03/12/24
04:37
WBC 6.4
Hgb 14.1
Hct 41.0
Plt Count 186
Sodium 134 L
Potassium 4.2 D
Chloride 99
Carbon Dioxide 31 H
BUN 16
Creatinine 0.8
Glucose 102 H
Calcium 9.0
Vital Signs:
Vital Signs
Temp Pulse Resp BP Pulse Ox
98.2 F 114 19 117/64 96
03/12/24 04:35 03/12/24 05:00 03/12/24 04:35 03/12/24 04:34 03/12/24 04:35
I&O
03/11/24 03/12/24 03/13/24
06:59 06:59 06:59
Intake Total 350 / 350 1720 / 1720
Output Total 2260 / 2260 3450 / 3450
Balance -1910 / -1909 -1729 / -1729
[2024-03-12] MEDS: TYLENOL 650 MG PO (08:03)
[2024-03-12] MEDS: KLOR-CON 20 MEQ PO ×2 (08:13→19:34)
[2024-03-12] MEDS: LASIX 40 MG IV ×2 (08:14→17:09)
[2024-03-12] MEDS: PACERONE 400 MG PO ×3 (08:15→22:27)
[2024-03-12] MEDS: ASPIR LOW (ENTERIC COATED) 81 MG PO (08:15)
[2024-03-12] MEDS: ELIQUIS 5 MG PO ×2 (08:15→19:33)
[2024-03-12] MEDS: TOPROL XL 25 MG PO ×2 (08:15→19:33)
[2024-03-12] MEDS: VITAMIN D3 (cholecalciferol) 25 MCG PO (13:00)
[2024-03-12] MEDS: MAG-TAB SR 84 MG PO (13:00)
[2024-03-12] MEDS: VITAMIN B-12 1000 MCG PO (13:00)
[2024-03-12] MEDS: VITAMIN C 500 MG PO (13:00)
--- NOTE | 2024-03-12 14:06 | W.PN.CARDCBS ---
Today's Communication / Plan
-
Continue IV diuresis and wean O2 as able
Metoprolol and amiodarone for rate control of A-fib, if she remains in A-fib 0.812 tentative plan for direct-current cardioversion
Impression / Plan
-
Primary Deputy Harbormaster: Dr. Mccray
Primary EP: Dr. Nick
Assessment:
Presentation with SOB
Acute HFpEF
Hypokalemia
Mild transaminitis, possible passive congestion from above
Paroxysmal Afib s/p successful MADELAINE/CV 03/09/24
OAC with eliquis
Multiple medication intolerances
PAD
s/p left femoral endarterectomy 2021
right subclavian stenosis
Hyperlipidemia with statin and Zetia intolerance
HTN
ECHO 01/28/24: EF 61%, no regional wall motion abnormalities noted, mild concentric LVH, mild MR, mild TR, PAP 25-30 mmHg
Plan:
-Patient presents with SOB. proBNP 2250 and CXR with evidence of CHF.
-she is diuresing well. continue IV lasix. was on HCTZ prior to admission, will plan to transition to lasix upon DC
-replete K
-wean supp O2 as able
-Blood pressure unlikely to tolerate spironolactone at this time
-Converted to AFib RVR on 03/11
-Cont metoprolol for rate control, add amiodarone as bridge to ablation
-Cont Eliquis
-Tentative plan for direct-current cardioversion on 03/13 if she remains in A-fib
Progress Note - Deputy Harbormaster
Subjective
Date of Service: March 12, 2024
Went into atrial fibrillation with rapid ventricular response late yesterday afternoon. Tells me that her peripheral edema is improving however she still requiring supplemental oxygen.
Objective
Labs:
03/12/24 04:37
03/12/24 04:37
Labs
Hgb 14.1 g/dL (12.0-16.0) 03/12/24 04:37
Hct 41.0 % (37.0-47.0) 03/12/24 04:37
Plt Count 186 10^3/uL (130-400) 03/12/24 04:37
Sodium 134 mmol/L (135-145) L 03/12/24 04:37
Potassium 4.2 mmol/L (3.5-5.1) D 03/12/24 04:37
BUN 16 mg/dl (7-17) 03/12/24 04:37
Creatinine 0.8 mg/dL (0.6-1.0) 03/12/24 04:37
Glucose 102 mg/dl (70-99) H 03/12/24 04:37
Troponins
03/10/24 03/10/24
06:37 12:40
Troponin I < 0.012 < 0.012
Vital Signs and I&O:
Vital Signs
Temp Pulse Resp BP Pulse Ox
97.9 F 99 18 106/70 97
03/12/24 08:00 03/12/24 08:14 03/12/24 08:00 03/12/24 08:14 03/12/24 08:00
Vital Signs
Temp Pulse Resp BP Pulse Ox
97.9 F 99 18 106/70 97
03/12/24 08:00 03/12/24 08:14 03/12/24 08:00 03/12/24 08:14 03/12/24 08:00
Intake & Output
03/10/24 03/11/24 03/12/24 03/13/24
06:59 06:59 06:59 06:59
Intake Total 350 / 350 1720 / 1720 560 / 560
Output Total 2260 / 2260 3450 / 3450 700 / 700
Balance -1910 / -1910 -1730 / -1730 -140 / -140
Physical Exam
Physical Exam
Gen: NAD, AAOx3
HEENT: NC/AT, sclera anicteric
Neck: No JVD
CV: Irregularly irregular
Lungs: CTAB on 2 L nasal cannula
Abd: S/ND
Ext: No LE edema
Skin: Warm, dry
Neuro: Non-focal
[2024-03-13] VITALS (8 sets, daily range): BP systolic 96–146; BP diastolic 53–76; BMI 31.4
[2024-03-13 02:50] LABS: Hematocrit 38.5 % (37.0-47.0); Hemoglobin 13.8 g/dL (12.0-16.0); Mean Corp Hgb Conc. 35.8 g/dL (33.0-37.0); Mean Corpuscular Hgb 30.3 pg (27.0-31.0); Mean Corpuscular Volume 84.6 fL (81.0-99.0); Mean Platelet Volume 10.6 fL (7.4-10.4); Platelet Count 188 10^3/uL (130-400); Red Blood Cell Count 4.55 10^6/uL (4.20-5.40); Red Cell Dist. Width 12.8 % (11.5-14.5)
--- NOTE | 2024-03-13 02:56 | PTCARENOTE ---
Rec'd pt at change of shift. Pt on TELE monitor in AFIB and VSS. Pt NPO at midnight for cardioversion on 03/13. Pt asymptomatic, denying any chest pain or palpitations. Pt resting with call samaniego in reach.
[2024-03-13 03:12] LABS: Blood Urea Nitrogen 17 mg/dl (7-17); Carbon Dioxide 26 mmol/L (22-30); Chloride 101 mmol/L (98-107); Estimated Creatinine Clearance 76 ml/min; Glucose 91 mg/dl (70-99); Magnesium 1.9 mg/dl (1.6-2.3); Potassium 3.8 mmol/L (3.5-5.1); Sodium 134 mmol/L (135-145); eGFR > 60.00
--- NOTE | 2024-03-13 08:00 | PTCARENOTE ---
Assumed care of pt from prev nsg shift; AAOx3 w/no c/o CP or SOB. Pt OOB to chair & is c/o 3/10 low back/sciatica pain. PRN PO Tylenol administered as ordered & ice pack provided per pt request. Pt's VS stable w/HR in the 50's-60, BP 99/56. Pt
appears to have converted to SB/SR since initial check at start of shift. EKG done to verify & MD notified. Plan of care ongoing.
--- NOTE | 2024-03-13 08:35 | W.PN.CARDCBS ---
Today's Communication / Plan
-
Cardioversion today
Continue amiodarone
Check ambulatory pulse ox later today
Impression / Plan
-
Primary Apprentice Lineman Third Step: Dr. Mccray
Primary EP: Dr. Nick
Assessment:
Presentation with SOB
Acute HFpEF
Hypokalemia
Mild transaminitis, possible passive congestion from above
Recurrence of paroxysmal Afib s/p successful MADELAINE/CV 03/09/24
OAC with eliquis
Multiple medication intolerances
PAD
s/p left femoral endarterectomy 2021
right subclavian stenosis
Hyperlipidemia with statin and Zetia intolerance
HTN
ECHO 01/28/24: EF 61%, no regional wall motion abnormalities noted, mild concentric LVH, mild MR, mild TR, PAP 25-30 mmHg
Plan:
-Patient presents with SOB. proBNP 2250 and CXR with evidence of CHF. She continues to diurese. Continue IV Lasix for now and transition to oral Lasix (was on HCTZ) on discharge.
-Etiology of decompensated heart failure is likely in part related to recurrence of paroxysmal atrial fibrillation with recent cardioversion (03/09/2024).
-Now that she has been on amiodarone for rhythm control and stable (off of oxygen at rest) plan for cardioversion today.
-Currently on amiodarone which is new (bridge to ablation). Continue load. Decrease dosing on discharge
-Plan for ablation already scheduled with Dr. Aldana 03/28/2024
-Continue oral anticoagulation
-Blood pressure stable but remains on the low side spironolactone remains on hold
-Later this afternoon we will check ambulatory pulse ox and see how patient is doing.
Progress Note - Apprentice Lineman Third Step
Subjective
Date of Service: March 13, 2024
Feeling better overall. Denies chest pain and palpitations.
Objective
Labs:
03/13/24 02:34
03/13/24 02:34
Labs
Hgb 13.8 g/dL (12.0-16.0) 03/13/24 02:34
Hct 38.5 % (37.0-47.0) 03/13/24 02:34
Plt Count 188 10^3/uL (130-400) 03/13/24 02:34
Sodium 134 mmol/L (135-145) L 03/13/24 02:34
Potassium 3.8 mmol/L (3.5-5.1) 03/13/24 02:34
BUN 17 mg/dl (7-17) 03/13/24 02:34
Creatinine 0.7 mg/dL (0.6-1.0) 03/13/24 02:34
Glucose 91 mg/dl (70-99) 03/13/24 02:34
Troponins
03/10/24
12:40
Troponin I < 0.012
Vital Signs and I&O:
Vital Signs
Temp Pulse Resp BP Pulse Ox
97.8 F 90 20 99/56 92
03/13/24 07:28 03/13/24 07:30 03/13/24 07:28 03/13/24 07:30 03/13/24 07:28
Vital Signs
Temp Pulse Resp BP Pulse Ox
97.8 F 90 20 99/56 92
03/13/24 07:28 03/13/24 07:30 03/13/24 07:28 03/13/24 07:30 03/13/24 07:28
Intake & Output
03/11/24 03/12/24 03/13/24 03/14/24
06:59 06:59 06:59 06:59
Intake Total 350 / 350 1720 / 1720 960 / 960
Output Total 2260 / 2260 3450 / 3450 1200 / 1200 200 / 200
Balance -1910 / -1910 -1730 / -1730 -240 / -240 -200 / -200
Physical Exam
Physical Exam
General: Well developed, well nourished in NAD.
Neck: Supple, no JVD, HJR, carotids +2 B/L, no bruits bilaterally.
Heart: Non displaced PMI, RRR, no murmurs, No S3, S4, no rubs.
Lungs: Decreased breath sounds at bases
Extremities: No clubbing, cyanosis or edema bilaterally.
Neuro: Grossly nonfocal, awake, alert and oriented x3.
[2024-03-13] MEDS: TYLENOL 650 MG PO ×2 (08:50→19:47)
[2024-03-13] MEDS: TOPROL XL 25 MG PO ×2 (08:51→19:47)
[2024-03-13] MEDS: ELIQUIS 5 MG PO ×2 (08:51→19:48)
[2024-03-13] MEDS: PACERONE 400 MG PO ×3 (08:51→22:36)
[2024-03-13] MEDS: ASPIR LOW (ENTERIC COATED) 81 MG PO (08:51)
[2024-03-13] MEDS: LASIX 40 MG IV ×2 (08:51→16:34)
[2024-03-13] MEDS: FLUSH (NSS) 2 FLUSH IV (08:53)
--- NOTE | 2024-03-13 10:00 | PTCARENOTE ---
Pt noted to be SB ontelemetry monitoring w/HR in the 50's; EKG done to confirm rhythm change & Dr Brittanie Ta & cath laboratory technician notified. CV cancelled & pt allowed to resume prev diet. Plan of care ongoing.
--- NOTE | 2024-03-13 11:09 | W.PN.HOSP.TC ---
Today's Communication/Plan
-
continue IV diuresis
home O2 assessment
PT/OT
monitor tele; continue Amio/Eliquis
Assessment / Plan
Assessment / Plan
Assessment:
Acute HFpEF
- continue IV Lasix BID, requires intensive monitoring of I/Os, weights, lytes
- DCA cards following
- continue Aldactone/Toprol XL
Parox Afib
- converted to NSR
- continue Amio and Eliquis
- DCA cards following
Acute hypoxic respiratory insufficiency from acute CHF
- wean O2; ambulatory O2 evaluation
Hypokalemia
- continue KCL BID
PAD
HLD
- continue ASA and cholesterol lowering diet
Essential HTN
- continue Aldactone/Toprol XL
Obesity d/t excess calories
DVT ppx: Eliquis
Code: Full
Anticipated Discharge: 24 - 48 hours
Subjective/Interval History
-
Date of Service: March 13, 2024
converted to NSR on Amio
denies any SOB or CP
Objective Data
-
Labs:
Laboratory Results
03/13/24
02:34
WBC 6.0
Hgb 13.8
Hct 38.5
Plt Count 188
Sodium 134 L
Potassium 3.8
Chloride 101
Carbon Dioxide 26
BUN 17
Creatinine 0.7
Glucose 91
Calcium 9.0
Vital Signs:
Vital Signs
Temp Pulse Resp BP Pulse Ox
97.8 F 90 20 138/76 92
03/13/24 07:28 03/13/24 07:30 03/13/24 07:28 03/13/24 08:51 03/13/24 07:28
I&O
03/12/24 03/13/24 03/14/24
06:59 06:59 06:59
Intake Total 1720 / 1720 960 / 960
Output Total 3450 / 3450 1200 / 1200 200 / 200
Balance -1730 / -1730 -240 / -240 -200 / -200
Physical Exam
-
General: No Apparent Distress
HEENT: Normocephalic and Atraumatic
Respiratory: Negative Wheezes or Rales
Cardiac: Regular Rhythm, S1/S2 and Bradycardic
Neuro: AO x 3
Hematologic / Lymphatic: No Lymphadenopathy
Psych: Calm
Data Reviewed
-
Total Time Spent with Patient (in minutes): 44
Labs: Labs Reviewed by me
[2024-03-13] MEDS: KLOR-CON 20 MEQ PO ×2 (11:37→19:48)
[2024-03-13] MEDS: VITAMIN C 500 MG PO (11:37)
[2024-03-13] MEDS: VITAMIN B-12 1000 MCG PO (11:37)
[2024-03-13] MEDS: VITAMIN D3 (cholecalciferol) 25 MCG PO (11:37)
[2024-03-13] MEDS: MAG-TAB SR 84 MG PO (11:37)
--- NOTE | 2024-03-13 12:12 | CM ---
Reviewed chart. Met with Mrs. Alexandre to review discharge plans. She states she is feeling better. We reviewed [facility] for physical and occupational therapy. She is declining [facility] at this time. She states her spouse is home and will
assist in her care and her daughter resides nearby. Prior to admission she resides with her spouse in a one story home with one step to enter. Prior to admission she was independent with ambulation and adls. She does not have any DME in the home.
She has a prescription plan and uses [facility]. Medical work-up in progress. The discharge plan is to return home with her spouse when medically stable.
[2024-03-13] MEDS: FLUSH (NSS) 1 FLUSH IV (16:34)
--- NOTE | 2024-03-14 01:32 | PTCARENOTE ---
Rec'd pt at change of shift on TELE monitor in NSR with bradycardic periods and VSS. Pt AAOx3. Pt complained of mild headache at change of shift, Tylenol given per order and headache subsided with re-evaluation (see flowchart). Pt denies any
other pain or palpitations. Pt agreed to report any changes in pain or palpitations to RN immediately. Pt with call samaniego in reach.
[2024-03-14 02:41] VITALS: BP 135/57
[2024-03-14 02:53] VITALS: BMI 31.4
[2024-03-14 03:20] LABS: Hematocrit 39.4 % (37.0-47.0); Hemoglobin 13.7 g/dL (12.0-16.0); Mean Corp Hgb Conc. 34.8 g/dL (33.0-37.0); Mean Corpuscular Hgb 30.9 pg (27.0-31.0); Mean Corpuscular Volume 88.9 fL (81.0-99.0); Mean Platelet Volume 10.8 fL (7.4-10.4); Platelet Count 213 10^3/uL (130-400); Red Blood Cell Count 4.43 10^6/uL (4.20-5.40); Red Cell Dist. Width 12.7 % (11.5-14.5); White Blood Cell Count 6.9 10^3/uL (4.8-10.8)
[2024-03-14 03:41] LABS: Blood Urea Nitrogen 24 mg/dl (7-17); Calcium 9.1 mg/dl (8.4-10.2); Carbon Dioxide 30 mmol/L (22-30); Chloride 97 mmol/L (98-107); Estimated Creatinine Clearance 54 ml/min; Glucose 93 mg/dl (70-99); Potassium 4.2 mmol/L (3.5-5.1); Sodium 134 mmol/L (135-145); eGFR 58.39
[2024-03-14 08:04] VITALS: BP 110/42
--- NOTE | 2024-03-14 08:56 | PTCARENOTE ---
Assumed care of pt from prev nsg shift; AAOx3 w/no c/o CP or SOB. Pt OOB to chair & ambulating frequently. Pt's VS stable w/HR in the 50's-60, BP 110/42. Pt in SB/SR on telemetry monitoring. Plan of care ongoing.
--- NOTE | 2024-03-14 09:09 | W.PN.HOSP.TC ---
Today's Communication/Plan
-
await final cards recs for today prior to dc
Assessment / Plan
Assessment / Plan
Assessment:
Acute HFpEF
- continue IV Lasix BID, requires intensive monitoring of I/Os, weights, lytes
- likely switch to oral dosing today
- DCA cards following
- continue Aldactone/Toprol XL
Parox A. fib
- converted to NSR
- continue Amio and Eliquis
- DCA cards following
Acute hypoxic respiratory insufficiency from acute CHF
- wean O2; ambulatory O2 evaluation performed 03/13; patient did not qualify.
Hypokalemia
- continue KCL BID
PAD
HLD
- continue ASA and cholesterol lowering diet
Essential HTN
- continue Aldactone/Toprol XL
Obesity d/t excess calories
DVT ppx: Eliquis
Code: Full
Anticipated Discharge: Today
Subjective/Interval History
-
Date of Service: March 14, 2024
HRs in 50s this AM, asymptomatic
Objective Data
-
Labs:
Laboratory Results
03/14/24
02:46
WBC 6.9
Hgb 13.7
Hct 39.4
Plt Count 213
Sodium 134 L
Potassium 4.2
Chloride 97 L
Carbon Dioxide 30
BUN 24 H
Creatinine 1.0
Glucose 93
Calcium 9.1
Vital Signs:
Vital Signs
Temp Pulse Resp BP Pulse Ox
97.5 F 47 16 110/42 92
03/14/24 08:05 03/14/24 08:04 03/14/24 08:05 03/14/24 08:04 03/14/24 08:05
I&O
03/13/24 03/14/24 03/15/24
06:59 06:59 06:59
Intake Total 960 / 960 480 / 480
Output Total 1200 / 1200 875 / 875
Balance -240 / -240 -395 / -395
Physical Exam
-
General: No Apparent Distress
HEENT: Normocephalic and Atraumatic
Respiratory: Negative Wheezes
Cardiac: Regular Rhythm, S1/S2 and Bradycardic
GI: Soft
Genito-urinary: No Costovertebral Tender
Musculoskeletal: No Edema
Neuro: AO x 3
Psych: Calm
Data Reviewed
-
Total Time Spent with Patient (in minutes): 44
Labs: Labs Reviewed by me
[2024-03-14 09:14] VITALS: BP 139/57
[2024-03-14] MEDS: ASPIR LOW (ENTERIC COATED) 81 MG PO (09:20)
[2024-03-14] MEDS: TYLENOL 650 MG PO (09:20)
[2024-03-14] MEDS: ELIQUIS 5 MG PO (09:20)
[2024-03-14] MEDS: KLOR-CON 20 MEQ PO (09:20)
--- NOTE | 2024-03-14 09:32 | W.PN.CARDCBS ---
Addendum entered and electronically signed by Matthew Mccray MD 03/14/24 10:26:
I saw and examined the patient.
The Senior Loan Officer's note was reviewed and I agree with the note.
Comment: Briefly, 78-year-old woman past medical history of persistent atrial fibrillation presenting with acute heart failure with preserved ejection fraction
Plan to transition to 40 mg Lasix once daily p.o.
Significant improvement in her volume status with IV lasix
Cr 1.0 today, baseline appears to be 0.6-0.8
Weight stable around 194 lbs
Blood pressure was unable to tolerate spironolactone, could consider initiating in the future
Recurrence of atrial fibrillation this hospitalization, she was initiated on amiodarone and underwent successful direct-current cardioversion on 03/13/2024, currently maintaining sinus rhythm
Will decrease metoprolol and amiodarone doses for bradycardia
Continue Eliquis for cardioembolic prophylaxis
Scheduled for ablation later this month
Outpatient follow-up arranged
Stable cardiac status, we will sign off
Original Note:
Today's Communication / Plan
-
po lasix 40mg daily
amiodarone 200mg BID
eliquis 5mg BID
toprol 25mg daily
continue to hold spironolactone
for DC today
OP cardiac follow up arranged
ablation 03/28
Impression / Plan
-
Primary Podiatric Physician: Dr. Mccray
Primary EP: Dr. Nick
Assessment:
Presentation with SOB
Acute HFpEF
Hypokalemia
Mild transaminitis, possible passive congestion from above
Paroxysmal Afib s/p successful MADELAINE/CV 03/09/24 with recurrence 03/11/24
OAC with eliquis
Multiple medication intolerances
PAD
s/p left femoral endarterectomy 2021
right subclavian stenosis
Hyperlipidemia with statin and Zetia intolerance
HTN
ECHO 01/28/24: EF 61%, no regional wall motion abnormalities noted, mild concentric LVH, mild MR, mild TR, PAP 25-30 mmHg
Plan:
-Patient presents with SOB. proBNP 2250 and CXR with evidence of CHF.
-weight down 8 pounds from admission if accurate. she has been weaned off supp O2. Cr bumped to 1.0 today. will transition to po lasix 40mg daily upon DC
-BMP in 1 week
-she had recurrence of afib this admission (s/p recent CV 03/09/24). was started on amiodarone and spontaneously converted to SR 03/13 with 2.5 second conversion pause
-will decrease amiodarone to 200mg BID (bridge to ablation)
-Plan for ablation already scheduled with Dr. Nick 03/28/2024
-Continue oral anticoagulation with eliquis
-given relative hypotension and bradycardia, will reduce toprol dose to 25mg daily
-OP spironolactone remains on hold
-OP cardiac follow up arranged
-ok for DC today
-d/w nursing
Progress Note - Podiatric Physician
Subjective
Date of Service: March 14, 2024
Feeling well. Weaned off of oxygen. Reports slept well overnight
Objective
Labs:
03/14/24 02:46
03/14/24 02:46
Labs
Hgb 13.7 g/dL (12.0-16.0) 03/14/24 02:46
Hct 39.4 % (37.0-47.0) 03/14/24 02:46
Plt Count 213 10^3/uL (130-400) 03/14/24 02:46
Sodium 134 mmol/L (135-145) L 03/14/24 02:46
Potassium 4.2 mmol/L (3.5-5.1) 03/14/24 02:46
BUN 24 mg/dl (7-17) H 03/14/24 02:46
Creatinine 1.0 mg/dL (0.6-1.0) 03/14/24 02:46
Glucose 93 mg/dl (70-99) 03/14/24 02:46
Vital Signs and I&O:
Vital Signs
Temp Pulse Resp BP Pulse Ox
97.5 F 47 16 110/42 92
03/14/24 08:05 03/14/24 08:04 03/14/24 08:05 03/14/24 08:04 03/14/24 08:05
Vital Signs
Temp Pulse Resp BP Pulse Ox
97.5 F 47 16 110/42 92
03/14/24 08:05 03/14/24 08:04 03/14/24 08:05 03/14/24 08:04 03/14/24 08:05
Intake & Output
03/12/24 03/13/24 03/14/24 03/15/24
07:59 07:59 07:59 07:59
Intake Total 1720 / 1720 960 / 960 480 / 480 360 / 360
Output Total 3450 / 3450 1400 / 1400 675 / 675 200 / 200
Balance -1730 / -1730 -440 / -440 -195 / -195 160 / 160
Physical Exam
Physical Exam
GEN: No distress, awake, alert, oriented x3. Sitting in chair
HEENT: supple, anicteric, mmm, EOMI
LUNGS: few crackles at bases, no wheezes
CV: Reg, S1/S2, no murmur
ABD: soft, BS+, NT/ND
EXT: No cyanosis, clubbing. trace edema of B/L LE
NEURO: Gross non-focal
SKIN: Warm, pink, dry. No rash
--- NOTE | 2024-03-14 10:10 | W.DS.TRANS ---
DC Summary - Director Call
-
Discharge Instructions:
Sleep Apnea Risk Intermediate
Discharge Diagnosis/Procedures acute HFpEF, AFib (converted to NSR with
Amiodarone)
Diet 2 Gram Sodium,Restrict fluids to 48 oz
Activity As tolerated
Bathing Restrictions None
Blood Work BMP in 1 week
Specialty Instructions Weigh Daily
Instructions: *DCA Heart Failure Instructions
Stand-Alone Forms:
Changes to Home Medications: Yes
Discharge Medications:
DC Medications w/original date entered in [employer]
cholecalciferol (vitamin D3) 25 mcg (1,000 unit) tablet 1,000 units PO NOON Supplement 01/09/22
coenzyme Q10 200 mg capsule (Co Q-10) 200 mg PO NOON Supplement 01/09/22
cyanocobalamin (vitamin B-12) 1,000 mcg tablet 1,000 mcg PO NOON Supplement 01/09/22
diazepam 5 mg tablet 5 - 10 mg PO HSPRN PRN ANXIETY 01/09/22
flaxseed oil 1,000 mg capsule 1,000 mg PO NOON herbal supplement 01/09/22
turmeric 400 mg capsule 400 mg PO NOON herbal supplement 01/09/22
ascorbic acid (vitamin C) 500 mg tablet (Vitamin C) 500 mg PO NOON Supplement 01/19/22
apixaban 5 mg tablet (Eliquis) 5 mg PO BID Blood clot prevention/tx #60 tabs 05/31/23
aspirin 81 mg tablet,delayed release 81 mg PO DAILY Blood Clot Prevention/Tx 03/10/24
famotidine 20 mg tablet (Pepcid) 20 mg PO DAILYPRN PRN gerd 03/10/24
magnesium oxide 400 mg (241.3 mg magnesium) tablet 400 mg PO NOON Supplement 03/10/24
amiodarone 200 mg tablet 200 mg PO BID #60 tabs 03/14/24
furosemide 40 mg tablet 40 mg PO DAILY #30 tabs 03/14/24
metoprolol succinate 25 mg tablet,extended release 24 hr 25 mg PO DAILY #30 tabs 03/14/24
potassium chloride 20 mEq oral packet (Klor-Con) 20 meq PO BID #60 ea 03/14/24
Home Medication Changes
HCTZ and Aldactone stopped
Lasix to 40mg; KCL added
Amiodarone added
Toprol to once daily
Pending Results: No
Total time spent discharging patient (in min): 42
[2024-03-14] MEDS: LASIX 40 MG PO (10:22)
[2024-03-14] MEDS: PACERONE 200 MG PO (10:22)
[2024-03-14] MEDS: PACERONE PO (10:24)
[2024-03-14] MEDS: TOPROL XL PO (10:24)
[2024-03-14] MEDS: LASIX IV (10:24)
--- NOTE | 2024-03-14 11:18 | W.HF.CON ---
Heart Failure
- LV Function
Left ventricular function study result: LV Ejection fraction >40%
Ejection Fraction Percentage: 61
- ARNI
Patient already on ARNI: No
Heart Failure ARNI Not Indicated: LV Ejection Fraction >/= 40%
- ACEI/ARB
Patient already on ACEI/ARB: No
Heart Failure ACEI/ARB Not Indicated: LV Ejection Fraction > 40%
- Beta Kassidy
Patient already on Evidence Based Beta Kassidy: Yes
- Mineralocorticord Receptor Antagonist
Patient already on MRA: No
Heart Failure MRA Not Indicated: LV Ejection Fraction > 40%
- SGLT-2 Inhibitor
Patient already on SGLT-2 Inhibitor: No
Heart Failure SGLT-2 Inhibitor Not Indicated: LV Ejection Fraction >40%
- Afib Anticoagulation
Patient already on Anticoagulation for Afib: Yes
- NYHA CHF Classification
NYHA CHF Classification Level: Class III - Symptoms w/ min exertion, interferes w/ nml daily activity
- ACC/AHA Stage
ACC/AHA Stage: Stage C: Symptomatic Heart Failure
[2024-03-14 11:34] VITALS: BP 158/104
[2024-03-14 11:36] VITALS: BP 161/73
[2024-03-14] MEDS: MAG-TAB SR 84 MG PO (12:02)
[2024-03-14] MEDS: VITAMIN D3 (cholecalciferol) 25 MCG PO (12:02)
[2024-03-14] MEDS: VITAMIN B-12 1000 MCG PO (12:03)
[2024-03-14] MEDS: VITAMIN C 500 MG PO (12:03)
[2024-03-14 15:19] VITALS: BP 96/42
--- NOTE | 2024-03-14 18:05 | PTCARENOTE ---
Discharge instructions discussed w/pt & pt's daughter. Pt's IV line & telemetry pack D/C'd. Pt left w/personal belongings including cell phone & interventional physiatrist. Pt left by wheelchair by staff w/her daughter driving her home.
== END 2024-03-14 17:21 | disposition home or self-care (01) | DRG 291 ==
LOC: IVU 09:50
PROVIDERS: Student in an Organized Health Care Education/Training Program; ADMITTING PHYSICIAN Internal Medicine; ATTENDING PHYSICIAN Internal Medicine; CONSULT PHYSICIAN Internal Medicine Cardiovascular Disease; EMERGENCY PHYSICIAN Emergency Medicine; FAMILY PHYSICIAN Family Medicine
PROC: 5A2204Z Restoration of Cardiac Rhythm, Single (ICD-10-PCS; 2024-03-11)
DX: I11.0 Hypertensive heart disease with heart failure (principal); I50.31 Acute diastolic (congestive) heart failure; I48.19 Other persistent atrial fibrillation; Z87.891 Personal history of nicotine dependence; E87.6 Hypokalemia; E66.09 Other obesity due to excess calories; E78.00 Pure hypercholesterolemia, unspecified; I73.9 Peripheral vascular disease, unspecified
CPT/HCPCS: 71046; 80048; 80053; 80076; 83735; 83880; 84100; 84443; 84484; 85025; 85027; 93005; 94640; 94760; 96365; 96366; 97162; 97166; 99285

== ENCOUNTER 2024-03-22 13:15 | Emergency (ER) | payer MEDICARE, OTHER, SELFPAY ==
[2024-03-22 13:26] VITALS: BP 118/69
[2024-03-22 14:00] LABS: % Eosinophils 1.4 % (0-6); % Immature Granulocytes 0.3 % (0-0.5); % Lymphocytes 15.2 % (20.5-51.1); % Monocytes 6.3 % (1.7-9.3); % Neutrophils 75.8 % (42.2-75.2); Absolute Basophils 0.1 10^3/uL (0-0.2); Absolute Eosinophils 0.1 10^3/uL (0-0.7); Absolute Lymphocytes 1.1 10^3/uL (1.2-3.4); Absolute Monocytes 0.4 10^3/uL (0.1-0.6); Absolute Neutrophils 5.3 10^3/uL (1.4-6.5); Hematocrit 44.7 % (37.0-47.0); Hemoglobin 15.3 g/dL (12.0-16.0); Mean Corp Hgb Conc. 34.2 g/dL (33.0-37.0); Mean Corpuscular Hgb 30.8 pg (27.0-31.0); Mean Corpuscular Volume 89.9 fL (81.0-99.0); Nucleated Red Blood Cells % 0 %; Platelet Count 226 10^3/uL (130-400); Red Blood Cell Count 4.97 10^6/uL (4.20-5.40); Red Cell Dist. Width 12.9 % (11.5-14.5)
[2024-03-22 14:07] LABS: ALT (SGPT) 18 U/L (0-35); AST (SGOT) 24 U/L (14-36); Albumin 4.5 g/dl (3.5-5.0); Alkaline Phosphatase 67 U/L (38-126); Blood Urea Nitrogen 22 mg/dl (7-17); Calcium 9.2 mg/dl (8.4-10.2); Carbon Dioxide 27 mmol/L (22-30); Chloride 103 mmol/L (98-107); Glucose 108 mg/dl (70-99); Potassium 4.9 mmol/L (3.5-5.1); Sodium 135 mmol/L (135-145); Total Bilirubin 1.2 mg/dl (0.2-1.3); Total Protein 7.2 g/dl (6.3-8.2); eGFR 52.08
[2024-03-22 14:16] LABS: APTT 33.8 Sec (23.4-35.0); INR 1.42; PT 17.4 Sec (11.4-14.6)
[2024-03-22 14:19] LABS: NT-proBNP 2840 pg/ml; Troponin I 0.013 ng/ml
[2024-03-22 16:00] VITALS: BMI 32.4
--- NOTE | 2024-03-22 17:44 | ED.GENMED ---
History of Present Illness
General
Chief Complaint: Fatigue
Time Seen by Provider: 03/22/24 15:12
History of Present Illness
History of Present Illness:
78-year-old female with history of atrial fibrillation on Eliquis and recent diagnosis of CHF with preserved EF presenting to the emergency department for fatigue, and episodes of cold sweats. Patient reports that she was recently hospitalized, and
on review of EMR, was hospitalized from 03/10 to 03/14. At that time patient present shortness of breath, was found to be in heart failure. Patient was in A-fib at that time, spontaneously converted during her admission, and was discharged on
amiodarone and Lasix which are new medications for her. She is scheduled for ablation with Dr. Nick next week. However, over the weekend she felt herself go back into A-fib. Additionally in the past few days she has had extreme fatigue, notes
today had an episode of cold sweats where she felt like she was going to pass out and a knot in her chest. She called the research microbiologist office who advised to come to the hospital for evaluation. Reports overall her shortness of breath and prior
admission has improved. Denies fever or cough. Reports that she is very sensitive to medications, and metoprolol as well is a new medication change for her. No additional symptoms reported at this time
Past History
Past History
ED Past Medical History: Arrthythmia (Atrial fibrillation), Cancer (Skin), GERD, HTN, Hypercholesterolemia, Psychiatric (anxiety) and Other (PAD)
ED Past Surgical History: Cholecystectomy, Gynecological (tubal ligation) and Tonsilectomy
Patient has exhibited threatening behavior?: No
PSI?: No
Social History
Tobacco: Former smoker
Alcohol: None
Personal:
Living: with family
Phy Exam
Physical Exam
Physical Exam:
General: Well-appearing, no clinical signs of dehydration, nontoxic and in no acute distress
HEENT: protecting airway
Neck: appears supple
CV: Normal heart rate, irregular irregular rhythm, no evidence of cyanosis
Resp: No accessory muscle use, no increased work of breathing, lungs clear to auscultation bilaterally
Abd: Soft and non-distended, no tenderness to palpation, normal bowel sounds
Extremities: No deformities, no swelling, no erythema, pulses and sensation intact
Neuro: alert, no focal neurologic deficit
: deferred
Rectal: deferred
Psych: Normal affect
Skin: Intact
Course
Orders/Labs/Results
Orders:
Orders
03/22/24 13:34
Electrocardiogram (*1) Urgent
Reason for Study: Shortness of Breath
EKG- Treatment ONCE
03/22/24 13:41
CMP [Comprehensive Metabolic Panel] Urgent
Complete Blood Count/With Diff Urgent
NT-proBNP Urgent
PT/INR [Prothrombin Time] Urgent
PTT Urgent
Troponin I Urgent
03/22/24 15:44
CR Chest - 2 Views Urgent
Comment:
Reason For Exam: fatigue, sob
Abnormal Lab Results
03/22/24
13:41
MPV 11.0 H fL
(7.4-10.4)
Absolute Lymphs (auto) 1.1 L 10^3/uL
(1.2-3.4)
Neutrophils % 75.8 H %
(42.2-75.2)
Lymphocytes % 15.2 L %
(20.5-51.1)
PT 17.4 H Sec
(11.4-14.6)
BUN 22 H mg/dl
(7-17)
Creatinine 1.1 H mg/dL
(0.6-1.0)
Glucose 108 H mg/dl
(70-99)
03/22/24 13:41
03/22/24 13:41
Vital Signs
Initial and Last Documented VS:
Initial Vital Signs
Temp Pulse Resp BP Pulse Ox
97.7 F 67 18 118/69 94
03/22/24 13:26 03/22/24 13:26 03/22/24 13:26 03/22/24 13:26 03/22/24 13:26
Last Documented Vital Signs
Temp Pulse Resp BP Pulse Ox
97.7 F 76 16 118/69 96
03/22/24 13:26 03/22/24 17:30 03/22/24 17:30 03/22/24 13:26 03/22/24 17:30
MDM/Problems Addressed
MDM/Problems Addressed:
78-year-old female with history of A-fib on Eliquis and newly diagnosed CHF presenting to the emergency department for fatigue, cold sweats, chest pressure. Vital signs on arrival are normal.
On exam, patient is very well-appearing, no acute distress, resting comfortably, no increased work of breathing. On review of EMR, recent hospitalization from 03/10-03/14 for CHF. Lungs are clear to auscultation and no lower extremity edema with
lower suspicion for acute on chronic CHF. EKG obtained, A-fib, however rate controlled, so lower suspicion for A-fib as etiology of patient's symptoms. No acute ischemic abnormality on EKG. nursing protocol placed on patient prior to my
assessment, with troponin within normal limits. Patient without active chest pain with lower suspicion for ACS. Patient without cough or fever, lower suspicion for infectious pathology. Will obtain chest x-ray imaging and discussed with patient
research microbiologist.
16:00 - Discussion with patient's research program intern, Dr. Nick, discussed potential for cardioversion, however patient reports on Wednesday she felt herself going to A-fib and was not having the symptoms that she is presently having. She is more
concerned about her new medications, she is very sensitive to medications, was placed on Lasix and amiodarone, and her metoprolol was increased. Patient would prefer to go home to have her outpatient ablation, and potentially in the meantime change
her medications. Will be discussed with research microbiologist.
17:00 - Control Officer agreeable to patient changing her medication, dropping amiodarone to 200 mg daily, keeping metoprolol and Lasix as is. Patient in agreement with this plan. Patient otherwise remained stable from a respiratory standpoint, feels
well enough to go home. Advised continued out patient cardiology follow-up. Strict return precautions were communicated to patient and patient and daughter at bedside verbalized understanding
*EKG
Interpreted by ED Provider?: Yes
EKG Intrepretation Date: 03/22/24
EKG Intrepretation Time: 17:49
Interpretation: abnormal
Comparison EKG: changes noted (previously sinus)
Heart Rate: 81
Rate: normal
Rhythm: a-fib
[place]: normal axis
QRS Pattern: normal QRS
Ischemia: no ischemia
*Critical Care Note
Total Time (30-74mins, 75-104mins- exclusive of procedures): Not Applicable
ED Attending Note
-
Portions of this chart may have been created with voice recognition software.� Occasional wrong word or��sound alike� substitutions may have occurred due to the inherent limitations of voice recognition software.
Discharge Plan
Departure
Prescriptions:
No Action
cholecalciferol (vitamin D3) 1,000 UNITS tablet
1,000 units PO NOON
cyanocobalamin (vitamin B-12) 1,000 MCG tablet
1,000 mcg PO NOON
flaxseed oil 1,000 MG capsule
1,000 mg PO NOON
diazepam 5 MG tablet
5 - 10 mg PO HSPRN PRN (Reason: ANXIETY)
Patient Comments:
03/10/24: filled 02/10/24 for 60 tablets at [facility]
coenzyme Q10 [Co Q-10] 200 MG capsule
200 mg PO NOON
turmeric 400 MG capsule
400 mg PO NOON
ascorbic acid (vitamin C) [Vitamin C] 500 MG tablet
500 mg PO NOON
Eliquis 5 mg Tablet
5 mg PO BID Qty: 60 11RF
aspirin 81 mg Tablet,Delayed Release (Dr/Ec)
81 mg PO DAILY
famotidine [Pepcid] 20 mg Tablet
20 mg PO DAILYPRN PRN (Reason: gerd)
magnesium oxide 400 mg (241.3 mg magnesium) Tablet
400 mg PO NOON
furosemide 40 mg Tablet
40 mg PO DAILY Qty: 30 0RF
amiodarone 200 mg Tablet
200 mg PO BID Qty: 60 0RF
metoprolol succinate 25 mg Tablet Extended Release 24 Hr
25 mg PO DAILY Qty: 30 0RF
potassium chloride 20 mEq tablet extended release
20 meq PO BID Qty: 60 0RF
Referrals:
Chucky Pierre MD [Family Provider] -
Interventions
Interventions:
*Risk Screen - Suicide Last Done: 03/22/24 16:03
*General Assessment Last Done: 03/22/24 16:03
*Neglect/Abuse Screening Last Done: 03/22/24 16:03
ED- Fall Risk Assessment Last Done: 03/22/24 16:47
*ED COVID-19 Vaccine History Last Done: 03/22/24 16:03
Discharge Date and Time
Print Language: MALTESE
[2024-03-22 18:28] VITALS: BP 123/83
[2024-03-22 18:36] VITALS: BP 123/83
== END 2024-03-22 18:37 | disposition home or self-care (01) ==
LOC: EMR 13:15
PROVIDERS: Physician Assistant Medical; EMERGENCY PHYSICIAN Student in an Organized Health Care Education/Training Program; FAMILY PHYSICIAN Family Medicine
DX: I48.91 Unspecified atrial fibrillation (principal); R53.83 Other fatigue; Z79.01 Long term (current) use of anticoagulants; I50.32 Chronic diastolic (congestive) heart failure; Z87.891 Personal history of nicotine dependence
CPT/HCPCS: 99285; 71046; 80053; 83880; 84484; 85025; 85610; 85730; 93005

== ENCOUNTER 2024-03-28 06:04 | Day surgery (SDC) | payer MEDICARE, OTHER, SELFPAY ==
[2024-03-28] VITALS (17 sets, daily range): BP systolic 111–159; BP diastolic 47–117; BMI 32.6
[2024-03-28 08:50] LABS: ACT-LR - POC 364 Seconds (116-155)
[2024-03-28 09:24] LABS: ACT-LR - POC 339 Seconds (116-155)
[2024-03-28 09:50] LABS: ACT-LR - POC 372 Seconds (116-155)
[2024-03-28 10:00] LABS: ACT-LR - POC > 397 Seconds (116-155)
[2024-03-28 10:04] LABS: ACT-LR - POC 147 Seconds (116-155)
--- NOTE | 2024-03-28 10:14 | ITS.CL.ABL ---
[employer] - Ablation
Ablation
Procedure Report:
Procedure Date: 03/28/2024
Patient History:
Patient is a pleasant 78-year-old female with a past medical history significant for hypertension, PAD, bilateral carotid artery stenosis, dyslipidemia, obesity, heart failure with preserved ejection fraction, and persistent symptomatic atrial
fibrillation
See H&P for complete details.
Indication:
Persistent symptomatic atrial fibrillation
Recurrence on antiarrhythmic medical therapy
Arrhythmia Specific History:
Prior Medical Therapies for Rate and Rhythm Control:
X Beta-tai
X Calcium channel-tai
X Amiodarone
[ ] Dronederone
[ ] Sotalol
[ ] Flecainide
[ ] Dofetilide
X Options limited by bradycardia
[ ] Options limited by comorbid renal disease
Prior Procedural Therapies for AF/AFL:
X Cardioversion
[ ] Pulmonary Vein Isolation
[ ] Posterior Wall Isolation
[ ] Additional lines (Specify)
[ ] Surgical Barriga-MAZE or PVI (Specify)
Procedure Performed:
X AF ablation procedure (61003) -- includes LA/CS pacing, trans-septal, 3D mapping, + ICE
[ ] +IV drug (62510)
[ ] +Other Arrhythmia (68463)
X +Other AF Line/ablation (08358) -posterior wall isolation
Risks and expected recovery has been explained in detail. Alternative options have been explored, and in a shared-decision making fashion we have decided that this was the most appropriate procedure.
Method
NPO status confirmed. Grounding pad applied. Defibrillator pads applied. Continuous surface ECG, pulse oximetry, and blood pressure were monitored. Procedure was performed under general anesthesia, with anesthesia services.
Both groins were clipped, prepped with Chloraprep, and draped in sterile fashion. Time out was called. Local anesthesia administered with bupivacaine. The right and left femoral veins were accessed for catheter placement, using ultrasound guidance,
micro-puncture needle/wire, and modified seldinger technique. 3 sheaths were placed. The following catheters were used:
[ ] Tacticath SE (D/F Curve) ablation catheter
X Viewflex 9Fr ICE catheter
X Inquiry decapolar 6Fr diagnostic catheter
[ ] CRD Hex 6Fr
[ ] Arctic Front Advance Cryoballoon ([ ]28mm[ ]23mm)
[ ] Achieve Advance mapping catheter ([ ]15mm[ ]20mm)
X FlexCath Contour 10 Fr with PulseSelect PFA Catheter
X Advisor HD Grid Mapping Catheter, SE
[ ] Acuson AcuNav 8 Fr ICE catheter
[ ]Other: [ ]
Intracardiac ultrasound (ICE) was carefully advanced into the right atrium to guide sheath placement over a J-wire, catheter placement, guide trans-septal puncture, identify potential complications, identify anatomic structures and ensure proper
contact between ablation catheter and tissue. A trace pericardial effusion located posterior to the LV with prominent pericardial fat was noted prior to transseptal. This remained unchanged throughout procedure and at completion of procedure.
Heparin was given prior to trans-septal puncture. Heparin was given to achieve and maintain a target ACT of 300-400 seconds throughout the procedure.
Trans-septal access was performed under ICE guidance. The trans-septal puncture was performed with a SafeSept wire through a Brockenbrough needle assembly through the steerable sheath. The wire was visualized as it entered the LSPV and system
advanced under ICE guidance and fluoroscopy into the LA. The Brockenbrough needle assembly, SafeSept wire and sheath dilator were removed under negative pressure. LA pressure was measured and recorded.
ICE and 3D mapping was performed to identify relevant cardiac structures. A careful 3D map was created to assess for regions of low-voltage and abnormal electrogram signals using HD grid mapping catheter and PulseSelect catheter. Additional mapping
was performed as outlined below.
Prior to ablation, glycopyrrolate was provided. PulseSelect catheter was advanced over J-wire to the ostium of each vein. Pulmonary vein isolation was performed with ostial and antral lesions in a circumferential manner. Contact was visualized via
EAM, ICE, fluoroscopy, and EGM signals. Posterior wall isolation was performed by anchoring the J-wire within the pulmonary vein and placing the PulseSelect catheter in contact with the posterior wall as visualized by aforementioned methods.
Following completion of ablation lesions, sinus rhythm was restored with a 200J synchronized DCCV and a post-ablation voltage/activation map was performed in sinus rhythm. Entrance and exit block were confirmed for each vein and the posterior wall.
Catheter and sheath were removed from the left atrium and post-ablation intracardiac echo evaluation was consistent with pre-ablation with no changes and no pericardial effusion and there is no left atrial thrombus or left ventricle thrombus seen.
Electrophysiology study was performed. Hemostasis was obtained with Vascade for each sheath and with manual pressure. Protamine was used for reversal.
Estimated Blood Loss
5 mL
Complications
None
Fluoroscopy: 3.3 minutes; 10.5 mGy; DAP 1.2
Baseline Intervals:
Rhythm: AF
QRS: 95 ms
QT: 485 ms
QTc: 535 ms
Post-Procedure Intervals:
MA: 210 ms
QRS: 95 ms
QT: 435 ms
QTc: 435 ms
AVWB: 460 ms
AVNERP: 600/350 ms
Recommendations
- Bedrest with straight-leg precautions as ordered
- Anticipate same day discharge if patient meeting clinical metrics
- Resume home medications as indicated
- Ok to resume anticoagulation tonight if patient and groin sites stable
- PPI daily for 30 days
- Plan for follow-up in office as scheduled
Chucky Nick DO
Clinical Cardiac Hydraulic Barker Operator
cc: Chucky Pierre MD
--- NOTE | 2024-03-28 15:40 | W.PN.UPDATE ---
Update Note
Progress Note Update
78 yo WF s/p PVI (same day). She was having some mild dizziness initially and nervous to go home, no cp, sob, mook clears, R fem site VASCADE c/d/i soft, EKG SR 1 deg AVB. She will continue OAC Eliquis dose at home. She will continue amiodarone and
metoprolol. We will add PPI for 30 days. Activity restrictions reviewed. She will f/u Dr. Nick in 3 mo. She is stable for d/c home after 3pm.
78-year-old female with a past medical history significant for hypertension, PAD, bilateral carotid artery stenosis, dyslipidemia, obesity, heart failure with preserved ejection fraction, and persistent symptomatic atrial fibrillation
See H&P for complete details.
Indication:
Persistent symptomatic atrial fibrillation
Recurrence on antiarrhythmic medical therapy
Procedure Performed:
X AF ablation procedure (35846) -- includes LA/CS pacing, trans-septal, 3D mapping, + ICE
[ ] +IV drug (61768)
[ ] +Other Arrhythmia (90508)
X +Other AF Line/ablation (84459) -posterior wall isolation
== END 2024-03-28 16:03 | disposition home or self-care (01) ==
LOC: CATH 06:04
PROVIDERS: ATTENDING PHYSICIAN Internal Medicine Cardiovascular Disease; FAMILY PHYSICIAN Family Medicine
DX: I48.19 Other persistent atrial fibrillation (principal); I11.0 Hypertensive heart disease with heart failure; I50.32 Chronic diastolic (congestive) heart failure; I44.0 Atrioventricular block, first degree; E78.5 Hyperlipidemia, unspecified; Z79.01 Long term (current) use of anticoagulants; Z79.82 Long term (current) use of aspirin
CPT/HCPCS: C1732; C1894; C1733; C1769; 76937; 85347; 93005; 93656; C1760

== ENCOUNTER → 2024-04-10 10:04 | Outpatient (REF) | payer MEDICARE, OTHER, SELFPAY | LOC: RAD 10:04 | PROVIDERS: ATTENDING PHYSICIAN Registered Nurse; FAMILY PHYSICIAN Family Medicine | DX: I77.9 Disorder of arteries and arterioles, unspecified (principal); I65.23 Occlusion and stenosis of bilateral carotid arteries; I71.40 Abdominal aortic aneurysm, without rupture, unspecified | CPT/HCPCS: 93880; 93922; 93923; 93925; 93930; 93978 ==

== ENCOUNTER → 2024-04-10 12:00 | Outpatient (REF) | payer MEDICARE, OTHER, SELFPAY | LOC: DHSLP 12:00 | PROVIDERS: ATTENDING PHYSICIAN Internal Medicine Cardiovascular Disease; FAMILY PHYSICIAN Family Medicine | DX: G47.33 Obstructive sleep apnea (adult) (pediatric) (principal) | CPT/HCPCS: 95800 ==

== ENCOUNTER → 2024-06-15 13:18 | Outpatient (REF) | payer MEDICARE, OTHER, SELFPAY | LOC: HWRAD 13:18 | PROVIDERS: ATTENDING PHYSICIAN Internal Medicine Critical Care Medicine; FAMILY PHYSICIAN Family Medicine | DX: R91.8 Other nonspecific abnormal finding of lung field (principal) | CPT/HCPCS: 71250 ==

== ENCOUNTER → 2024-08-01 08:34 | Outpatient (REF) | payer MEDICARE, OTHER, SELFPAY | LOC: RAD 08:34 | PROVIDERS: ATTENDING PHYSICIAN Physician Assistant; FAMILY PHYSICIAN Family Medicine | DX: K21.9 Gastro-esophageal reflux disease without esophagitis (principal) | CPT/HCPCS: 74246 ==

== ENCOUNTER → 2024-10-02 15:53 | Outpatient (REF) | payer MEDICARE, OTHER, SELFPAY | LOC: HWRCS 15:53 | PROVIDERS: ATTENDING PHYSICIAN Internal Medicine Cardiovascular Disease; FAMILY PHYSICIAN Family Medicine | DX: R06.02 Shortness of breath (principal) | CPT/HCPCS: 93306 ==

== ENCOUNTER → 2024-10-09 11:47 | Outpatient (REF) | payer MEDICARE, OTHER, SELFPAY | LOC: HWRCS 11:47 | PROVIDERS: ATTENDING PHYSICIAN Internal Medicine Cardiovascular Disease; FAMILY PHYSICIAN Family Medicine | DX: R07.89 Other chest pain (principal); R06.02 Shortness of breath | CPT/HCPCS: 78452; 93017; A9500; J2785 ==

== ENCOUNTER 2024-11-20 06:19 | Day surgery (SDC) | payer MEDICARE, OTHER, SELFPAY | END 2024-11-20 13:13 | disposition home or self-care (01) | LOC: GI 06:19 | PROVIDERS: ATTENDING PHYSICIAN Specialist; FAMILY PHYSICIAN Family Medicine | DX: R10.12 Left upper quadrant pain (principal); R07.9 Chest pain, unspecified; R12 Heartburn; K31.89 Other diseases of stomach and duodenum; R93.3 Abnormal findings on diagnostic imaging of other parts of digestive tract; K29.50 Unspecified chronic gastritis without bleeding | CPT/HCPCS: 43239; 88305; 88342 ==

== ENCOUNTER 2024-11-27 11:39 | Emergency (ER) | payer MEDICARE, OTHER, SELFPAY ==
[2024-11-27] VITALS (7 sets, daily range): BP systolic 93–156; BP diastolic 68–91; BMI 32.9
[2024-11-27 12:16] LABS: % Basophils 1.3 % (0-2); % Eosinophils 2.6 % (0-6); % Immature Granulocytes 0.2 % (0-0.5); % Lymphocytes 19.6 % (20.5-51.1); % Monocytes 6.9 % (1.7-9.3); % Neutrophils 69.4 % (42.2-75.2); Absolute Basophils 0.1 10^3/uL (0-0.2); Absolute Eosinophils 0.1 10^3/uL (0-0.7); Absolute Lymphocytes 1.1 10^3/uL (1.2-3.4); Absolute Monocytes 0.4 10^3/uL (0.1-0.6); Absolute Neutrophils 3.7 10^3/uL (1.4-6.5); Hematocrit 41.5 % (37.0-47.0); Hemoglobin 14.2 g/dL (12.0-16.0); Mean Corp Hgb Conc. 34.2 g/dL (33.0-37.0); Mean Corpuscular Hgb 30.7 pg (27.0-31.0); Mean Corpuscular Volume 89.6 fL (81.0-99.0); Mean Platelet Volume 10.6 fL (7.4-10.4); Nucleated Red Blood Cells % 0 %; Platelet Count 185 10^3/uL (130-400); Red Blood Cell Count 4.63 10^6/uL (4.20-5.40); Red Cell Dist. Width 12.7 % (11.5-14.5); White Blood Cell Count 5.4 10^3/uL (4.8-10.8)
[2024-11-27 12:23] LABS: ALT (SGPT) 21 U/L (0-35); AST (SGOT) 23 U/L (14-36); Albumin 4.7 g/dl (3.5-5.0); Alkaline Phosphatase 71 U/L (38-126); Blood Urea Nitrogen 18 mg/dl (7-17); Calcium 9.2 mg/dl (8.4-10.2); Carbon Dioxide 28 mmol/L (22-30); Chloride 102 mmol/L (98-107); Glucose 116 mg/dl (70-99); Potassium 3.8 mmol/L (3.5-5.1); Sodium 143 mmol/L (135-145); Total Bilirubin 1.5 mg/dl (0.2-1.3); Total Protein 7.5 g/dl (6.3-8.2); eGFR > 60.00
[2024-11-27 12:32] LABS: NT-proBNP 4880 pg/ml
[2024-11-27 14:30] LABS: Troponin I < 0.012 ng/ml
--- NOTE | 2024-11-27 16:03 | ED.GENMED ---
History of Present Illness
General
Chief Complaint: Chest Pain
Time Seen by Provider: 11/27/24 13:42
History of Present Illness
History of Present Illness:
79-year-old female with history of paroxysmal A-fib, HFpEF, hypertension, and hyperlipidemia presents to the emergency department for evaluation of shortness of breath and general weakness for the past 2 to 3 days. She feels as though she is more
edematous than normal however her weights have been stable at home. She is on 40 mg of Lasix and admits she forgot to take a dose yesterday but did take her dose this morning. No fevers or chills. She does have occasional chest pain with exertion
but it seems to resolve at rest. Of note she had a nuclear stress test that was equivocal and felt to be unremarkable 1 month ago.
Past History
Past History
ED Past Medical History: Arrthythmia (Atrial fibrillation), Cancer (Skin), GERD, HTN, Hypercholesterolemia, Psychiatric (anxiety) and Other (PAD)
ED Past Surgical History: Cholecystectomy, Gynecological (tubal ligation) and Tonsilectomy
Patient has exhibited threatening behavior?: No
PSI?: No
Social History
Tobacco: Former smoker
Alcohol: None
Personal:
Living: with family
Review of Systems
Review of Systems
Allergies reviewed?: Yes
All Other Systems: ROS reviewed and negative except as documented in HPI and ROS
Phy Exam
Physical Exam
Physical Exam:
GEN: Well appearing, NAD, WDWN
HEENT: Oral mucosa moist, no scleral icterus
Cardiac: Regular rate and rhythm, no murmurs
Lung: No respiratory distress, no tachypnea, lungs clear to auscultation bilaterally
MSK: No gross deformity or injuries, no significant peripheral edema
Skin: Good color, no pallor or jaundice, no rashes
Neuro: AO x3, moves all extremities freely
Psych: Calm, cooperative
Scores
Heart Score for Chest Pain Patients
STEMI patient?: No
History: Moderately Suspicious
ECG: Nonspecific Repolarization
Age: >/= 65 years
Risk Factors: >/= 3 Risk Factors or History of CAD
Troponin: </= Normal Limit
Heart Score for Chest Pain Patients: 6
Heart Score Risk: 20.3% MACE over next 6 weeks
Course
Orders/Labs/Results
Orders:
Orders
11/27/24 11:40
Electrocardiogram (*1) Urgent
Reason for Study: Chest Pain
EKG- Treatment ONCE
11/27/24 11:59
Complete Blood Count/With Diff Urgent
Comprehensive Metabolic Panel Urgent
NT-proBNP Urgent
Troponin I Urgent
Comment: ADD ON TO LABS
11/27/24 13:44
Add On- LAB Urgent
Tests Added?: troponin
11/27/24 13:52
CR Chest - 2 Views Urgent
Comment:
Reason For Exam: chest pain/SOB
11/27/24 15:20
Furosemide [Lasix] 20 mg IV NOW STA
Abnormal Lab Results
11/27/24
11:59
MPV 10.6 H fL
(7.4-10.4)
Absolute Lymphs (auto) 1.1 L 10^3/uL
(1.2-3.4)
Lymphocytes % 19.6 L %
(20.5-51.1)
BUN 18 H mg/dl
(7-17)
Glucose 116 H mg/dl
(70-99)
Total Bilirubin 1.5 H mg/dl
(0.2-1.3)
11/27/24 11:59
11/27/24 11:59
Vital Signs
Initial and Last Documented VS:
Initial Vital Signs
Pulse Resp BP Pulse Ox
73 18 156/91 97
11/27/24 11:47 11/27/24 11:47 11/27/24 11:47 11/27/24 11:47
Last Documented Vital Signs
Temp Pulse Resp BP Pulse Ox
98.6 F 82 20 152/86 98
11/27/24 16:35 11/27/24 16:35 11/27/24 16:35 11/27/24 16:35 11/27/24 16:35
MDM/Problems Addressed
MDM/Problems Addressed:
Patient's BNP is elevated however she has clear lungs and body weights are stable. Troponin is negative and EKG is nonischemic. Clinical picture is most consistent with acute CHF however cannot definitively rule out stable angina presentation.
Will gently diurese, 20 mg given IV here and will discharge on 2 further days of the 60 mg daily dose, heart failure follow-up hotline given, will benefit from close cardiac evaluation as an outpatient
*Critical Care Note
Total Time (30-74mins, 75-104mins- exclusive of procedures): Not Applicable
ED Attending Note
-
Portions of this chart may have been created with voice recognition software.� Occasional wrong word or��sound alike� substitutions may have occurred due to the inherent limitations of voice recognition software.
Discharge Plan
Departure
Patient Disposition: Home (Routine Discharge)
Date of Disposition: 11/27/24
Time of Disposition: 16:03
Patient with high blood pressure during this ER visit?: No
Discharge Problem:
Acute heart failure with preserved ejection fraction (HFpEF)
Instructions: *[facility] Heart Failure Instructions
Prescriptions:
No Action
cholecalciferol (vitamin D3) 1,000 UNITS tablet
1,000 units PO NOON
cyanocobalamin (vitamin B-12) 1,000 MCG tablet
1,000 mcg PO NOON
flaxseed oil 1,000 MG capsule
1,000 mg PO NOON
diazepam 5 MG tablet
5 - 10 mg PO HSPRN PRN (Reason: ANXIETY)
Patient Comments:
03/10/24: filled 02/10/24 for 60 tablets at [facility]
coenzyme Q10 [Co Q-10] 200 MG capsule
200 mg PO NOON
turmeric 400 MG capsule
400 mg PO NOON
ascorbic acid (vitamin C) [Vitamin C] 500 MG tablet
500 mg PO NOON
Eliquis 5 mg Tablet
5 mg PO BID Qty: 60 11RF
amiodarone 200 mg tablet
100 mg PO BID
metoprolol succinate 25 mg tablet extended release 24 hr
12.5 mg PO BID
pantoprazole [Protonix] 40 mg tablet,delayed release (DR/EC)
40 mg PO DAILY Qty: 30 0RF
aspirin 81 mg Tablet,Delayed Release (Dr/Ec)
81 mg PO DAILY
famotidine [Pepcid] 20 mg Tablet
20 mg PO DAILYPRN PRN (Reason: gerd)
magnesium oxide 400 mg (241.3 mg magnesium) Tablet
400 mg PO NOON
furosemide 40 mg Tablet
40 mg PO DAILY Qty: 30 0RF
potassium chloride 20 mEq tablet extended release
20 meq PO BID Qty: 60 0RF
Referrals:
Chucky Pierre MD [Family Provider] -
Activity Restrictions/Additional Instructions:
Increase your lasix to 60mg (1.5 tabs) on Wednesday and Wednesday
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
Interventions
Interventions:
*Risk Screen - Suicide Last Done: 11/27/24 11:49
*General Assessment Last Done: 11/27/24 11:49
*Neglect/Abuse Screening Last Done: 11/27/24 11:49
*ED- Fall Risk Assessment Last Done: 11/27/24 14:00
*ED COVID-19 Vaccine History Last Done: 11/27/24 11:49
*Nursing Disposition Last Done: 11/27/24 16:35
ED- Cardiac Assessment Last Done: 11/27/24 13:59
Discharge Date and Time
Discharge Date/Time: 11/27/24 16:35
Print Language: CROATIAN
[2024-11-27] MEDS: LASIX 20 MG IV (16:12)
--- NOTE | 2024-11-27 16:40 | EDRN ---
Reviewed discharge instructions with patient. Verbalized understanding. Ambulated with steady gait to the lobby.
== END 2024-11-27 16:35 | disposition home or self-care (01) ==
LOC: EMR 11:39
PROVIDERS: Emergency Medicine; EMERGENCY PHYSICIAN Emergency Medicine; FAMILY PHYSICIAN Family Medicine
DX: I11.0 Hypertensive heart disease with heart failure (principal); I50.31 Acute diastolic (congestive) heart failure; E78.00 Pure hypercholesterolemia, unspecified; I48.0 Paroxysmal atrial fibrillation; Z87.891 Personal history of nicotine dependence; Z85.828 Personal history of other malignant neoplasm of skin; Z79.899 Other long term (current) drug therapy
CPT/HCPCS: 99285; 96374; 71046; 80053; 83880; 84484; 85025; 93005

== ENCOUNTER → 2024-12-14 12:39 | Outpatient (REF) | payer MEDICARE, OTHER, SELFPAY | LOC: HWRAD 12:39 | PROVIDERS: ATTENDING PHYSICIAN Internal Medicine Critical Care Medicine; FAMILY PHYSICIAN Family Medicine | DX: R91.8 Other nonspecific abnormal finding of lung field (principal) | CPT/HCPCS: 71250 ==

== ENCOUNTER 2024-12-23 17:09 | Inpatient (IN) | payer MEDICARE, OTHER, SELFPAY ==
[2024-12-23] VITALS (29 sets, daily range): BP systolic 100–146; BP diastolic 57–121; BMI 31.6; BMI 30.6
[2024-12-23 14:26] LABS: % Basophils 1.2 % (0-2); % Lymphocytes 20.7 % (20.5-51.1); % Monocytes 7.7 % (1.7-9.3); % Neutrophils 68.4 % (42.2-75.2); Absolute Basophils 0.1 10^3/uL (0-0.2); Absolute Eosinophils 0.1 10^3/uL (0-0.7); Absolute Lymphocytes 1.1 10^3/uL (1.2-3.4); Absolute Monocytes 0.4 10^3/uL (0.1-0.6); Absolute Neutrophils 3.5 10^3/uL (1.4-6.5); Mean Corp Hgb Conc. 34.1 g/dL (33.0-37.0); Mean Corpuscular Hgb 30.7 pg (27.0-31.0); Mean Platelet Volume 11.6 fL (7.4-10.4); Nucleated Red Blood Cells % 0 %; Platelet Count 187 10^3/uL (130-400); Red Blood Cell Count 4.89 10^6/uL (4.20-5.40); Red Cell Dist. Width 12.6 % (11.5-14.5); White Blood Cell Count 5.1 10^3/uL (4.8-10.8)
[2024-12-23 14:36] LABS: INR 1.42; PT 17.6 Sec (11.4-14.6)
[2024-12-23 14:37] LABS: APTT 35.1 Sec (23.4-35.0)
[2024-12-23 14:39] LABS: ALT (SGPT) 20 U/L (0-35); AST (SGOT) 25 U/L (14-36); Albumin 4.7 g/dl (3.5-5.0); Alkaline Phosphatase 56 U/L (38-126); Blood Urea Nitrogen 27 mg/dl (7-17); Calcium 9.5 mg/dl (8.4-10.2); Carbon Dioxide 24 mmol/L (22-30); Chloride 107 mmol/L (98-107); Estimated Creatinine Clearance 45 ml/min; Glucose 125 mg/dl (70-99); Potassium 5.2 mmol/L (3.5-5.1); Sodium 138 mmol/L (135-145); Total Bilirubin 1.4 mg/dl (0.2-1.3); Total Protein 7.7 g/dl (6.3-8.2); eGFR 51.75
[2024-12-23] MEDS: LOPRESSOR 5 MG IV (14:44)
[2024-12-23 14:50] LABS: Troponin I 0.036 ng/ml
[2024-12-23 14:53] LABS: NT-proBNP 5110 pg/ml
[2024-12-23] MEDS: CARDIZEM 5 MG IV (15:20)
[2024-12-23] MEDS: CARDIZEM 125 IV (15:21)
--- NOTE | 2024-12-23 15:31 | CON.CAR ---
Consultation
Consultation Request
Date/Time Consultation Requested: December 23, 2024
Date/Time Consultation Performed: December 23, 2024
Requesting Provider: Dr. Weiss
Performing Provider: Dr. Aguilar
Reason for Consultation: Atrial flutter and heart failure
Medical History
-
Chief Complaint: Palpitations
History of Present Illness:
Patient with history of PAF on eliquis, with hx ablation with Dr. Nick 03/28/24 and hx successful MADELAINE/CV 03/09/24 at . She reports since wednesday that her HR has been up. She has missed some doses of lasix. She called the office yesterday and her
Coreg was increased. She started to get some chest pain and fatigue and felt poorly and came to ER. ProBNP >5000. First trop 0.036. Cardiology was consulted for trop, atrial flutter HR 150s and symptoms
PMH:
Paroxysmal Afib s/p successful PVI Mar 2024
Hx MADELAINE/CV 03/09/24
OAC with eliquis
Multiple medication intolerances
PAD
s/p left femoral endarterectomy 2021
right subclavian stenosis
Hyperlipidemia with statin and Zetia intolerance
HTN
Past Medical History
Past Medical History: Other
Past Surgical History: Cholecystectomy, Tonsilectomy and Other (Left femoral endarterectomy 03/2022)
Social History
Tobacco: Former Smoker
Alcohol: None
Drug: None
Personal:
Living: With Family
Family History
Family History: Other (father with CAD s/p CABG and Afib, daughter from multiple myeloma in 2020)
Allergies / Home Medications
Allergy/AdvReac Type Severity Reaction Status Date / Time
amlodipine Allergy Unknown Verified 12/23/24 13:24
amoxicillin Allergy Pt does Verified 12/23/24 13:24
not
belieive
this is an
allergy
benazepril Allergy Hives Verified 12/23/24 13:24
codeine Allergy Nausea / Verified 12/23/24 13:24
Vomiting
dextromethorphan Allergy Itching, Verified 12/23/24 13:24
[From NyQuil] migraine
doxylamine [From NyQuil] Allergy Itching, Verified 12/23/24 13:24
migraine
gatifloxacin [From Tequin] Allergy Shortness Verified 12/23/24 13:24
of Breath,
Hives
hydromorphone [From Dilaudid] Allergy headache Verified 12/23/24 13:24
pseudoephedrine [From NyQuil] Allergy Itching, Verified 12/23/24 13:24
migraine
red dye Allergy Hives Verified 12/23/24 13:24
[id number] Reductase Allergy Aches Verified 12/23/24 13:24
Inhibitor
trifluoperazine Allergy seizure - Verified 12/23/24 13:24
[From Stelazine] 1974
�Medication �Instructions �Recorded �Confirmed �Type
cholecalciferol (vitamin D3) 25 1,000 units PO NOON Supplement 01/09/22 12/23/24 History
mcg (1,000 unit) tablet
coenzyme Q10 200 mg capsule (Co 200 mg PO NOON Supplement 01/09/22 12/23/24 History
Q-10)
cyanocobalamin (vitamin B-12) 1,000 mcg PO NOON Supplement 01/09/22 12/23/24 History
1,000 mcg tablet
diazepam 5 mg tablet 5 - 10 mg PO HSPRN PRN ANXIETY 01/09/22 12/23/24 History
flaxseed oil 1,000 mg capsule 1,000 mg PO NOON herbal supplement 01/09/22 12/23/24 History
ascorbic acid (vitamin C) 500 mg 500 mg PO NOON Supplement 01/19/22 12/23/24 History
tablet (Vitamin C)
apixaban 5 mg tablet (Eliquis) 5 mg PO BID Blood clot 05/31/23 12/23/24 Rx
prevention/tx #60 tabs
aspirin 81 mg tablet,delayed 81 mg PO DAILY Blood Clot 03/10/24 12/23/24 History
release Prevention/Tx
famotidine 20 mg tablet (Pepcid) 20 mg PO BID 03/10/24 12/23/24 History
magnesium oxide 400 mg (241.3 mg 400 mg PO NOON Supplement 03/10/24 12/23/24 History
magnesium) tablet
potassium chloride 20 mEq 20 meq PO BID #60 tabs 03/14/24 12/23/24 Rx
tablet,extended release
acetaminophen 325 mg tablet 650 mg PO Q6HPRN PRN MILD PAIN 12/23/24 12/23/24 History
(Tylenol)
carvedilol 3.125 mg tablet (Coreg) 6.25 mg PO BID 12/23/24 12/23/24 History
furosemide 40 mg tablet 40 mg PO SUTUTHSA 12/23/24 12/23/24 History
furosemide 40 mg tablet (Lasix) 60 mg PO MOWEFR 12/23/24 12/23/24 History
losartan 25 mg tablet 12.5 mg PO QPM 12/23/24 12/23/24 History
pravastatin 10 mg tablet 10 mg PO MOWEFR 12/23/24 12/23/24 History
Review of Systems
-
History Source: Patient
All other systems: Negative unless noted
Cardiac: Chest Pain and Palpitations
Physical Exam
Vital Signs
Temp Pulse Resp BP Pulse Ox
97.4 F 138 16 104/82 96
12/23/24 13:15 12/23/24 15:20 12/23/24 15:00 12/23/24 15:20 12/23/24 15:00
Physical examination:
General: No acute distress, AAOX3
Neck: Negative JVD
Heart: Irregular irregular, Negative S3 positive S1/S2, Negative S4, No murmur
Lungs: CTA b/l, negative wheezes/rales/rhonchi
Abd: Positive BS, NT/ND, neg rebound/rigidity/guarding
Ext: Negative cyanosis/clubbing/edema
Neuro: nonfocal
Lab Results
12/23/24 13:57
12/23/24 13:57
Troponin I 0.036 ng/ml H* 12/23/24 13:57
Rbv-E-Kiskwtnyint Pept 5110 pg/ml 12/23/24 13:57
Impression / Plan
-
.
Primary Production Support Developer: Dr. Mccray
Primary EP: Dr. Nick
Impression:
Presentation with SOB and atrial flutter
Acute HFpEF, proBNP greater than 5000
Hyperkalemia
Elevated troponin 0.036
Hx Paroxysmal Afib s/p successful MADELAINE/CV 03/09/24 with recurrence 03/11/24
OAC with eliquis
Multiple medication intolerances
PAD
s/p left femoral endarterectomy 2021
right subclavian stenosis
Hyperlipidemia with statin and Zetia intolerance
HTN
ECHO 01/28/24: EF 61%, no regional wall motion abnormalities noted, mild concentric LVH, mild MR, mild TR, PAP 25-30 mmHg
Echo September 2024: EF 50 to 54%, normal RV size and function, mild MR, mild TR, no pericardial effusion.
Lexiscan nuclear stress September 2024: Probably normal study. There is a predominantly fixed small, mild defect in the apical inferior and mid inferior segments most consistent with bowel attenuation noted in this region. No significant ischemia is
seen. Systolic function is mildly reduced. The ejection fraction is 42%. Compared with the study performed on 01/02/2022. There is decreased left ventricular ejection fraction from 61% to 42%.
Plan:
Start IV Cardizem for better heart rate control and continue carvedilol. Carvedilol was just increased to 6.25 mg twice daily yesterday.
Continue anticoagulation with Eliquis
Eventual consideration for cardioversion if she fails to spontaneously convert.
May consider retrial of amiodarone as she was on this in the past as a bridge to ablation.
Trend troponin until peaks. If troponin continues to climb may transition from Eliquis to IV heparin.
IV Lasix diuresis. Monitor daily weights I's and O's and creatinine
Discussed with family at bedside.
Discussed with primary service.
Data Reviewed
-
EKG: Tracing Personally Visualized and interpreted
Medical Tests (Nuc Med, Echo etc): Report Reviewed by me
Labs: Labs Reviewed by me
Old Records: Reviewed
--- NOTE | 2024-12-23 15:34 | HPS.HSE ---
Family Physician
-
Family Physician: Chucky Pierre
Chief Complaint
-
Midsternal chest pressure with fatigue persistent today on and off chest pressure with tachycardia and hypotension x 5 days
History of Present Illness
79-year-old male complaining of chest pressure midsternal with sensation like going to pass out along with tachycardia heart rate in the 140s and hypotension. She states today she came to the hospital because the chest pressure has been persistent
midsternal associated with fatigue currently 5 out of 10. The patient reports the symptoms have been happening since Wednesday 5 days ago. Looking at her blood pressure and heart rate since 518 09/06/2020 she has had episodes of tachycardia with heart
rate 140s blood pressure 85/69 with max 120 systolic. She reports telling her cardiology office that she has had elevated heart rate and feeling like going to pass out however she did not tell them about her chest pressure. The patient was told to
take an extra carvedilol yesterday due to the tachycardia. She took an extra carvedilol this morning in total 12.5 mg and symptoms continued. In the ER patient is noted to have rapid A-flutter with ST depression in the inferior leads. She is
being evaluated by cardiology Dr. Aguilar. The patient denies headache, fever, chills, sore throat, shortness of breath, cough, abdominal pain, nausea, vomiting, diarrhea, urinary symptoms, recent illness.
The patient has a past medical history of paroxysmal A-fib, post ablation 03/28/2024, post MADELAINE/CV 03/09/2024 with reoccurrence 03/11/2024, chronic CHF, recent abnormal nuclear stress test apical inferior and mid inferior segments 10/09/2024, HTN, HLD,
GERD, anxiety,PAD, S/P left femoral endarterectomy 2021,s/p Bilateral Femoral Endarterectomy and Left Iliac Stent, Right subclavian stenosis, hypomagnesemia.
Medical History
Past Medical History
Past Medical History: Reports Other
Additional Past Medical History:
Peripheral Arterial Disease s/p Bilateral Femoral Endarterectomy and Left Iliac Stent
Paroxysmal Atrial Fibrillation
Essential Hypertension
Hyperlipidemia
GERD
Anxiety
Hypomagnesemia
Chronic CHF
Past Surgical History: Reports Other
Additional Past Surgical History:
Status post MADELAINE/CV 03/09/2024 with recurrence 03/11/2024
Status post electrical ablation 03/28/2024 Dr. Aldana
Tubal Ligation
Cholecystectomy
Tonsillectomy
Melanoma Removal
Basal Cell Removal
Right Femoral Endarterectomy
Left Common Femoral Endarterectomy
Left External Iliac Stent
Social History
Tobacco: Former Smoker
Alcohol: None
Drug: None
Personal: Single
Employment: Retired
Family History
Family History: Other (Mother lymphoma age 69, father history A-fib, CABG x 3 vessel, femoropopliteal, alcohol abuse, lymphoma age 87, 1 brother alcohol abuse, 1 sister living age 86 COPD)
Allergies / Home Medications
Allergies reflects when Allergies were last updated in [employer]
Home Medications with original date entered in [employer]
Allergy/Medication List:
Allergies
Allergy/AdvReac Type Severity Reaction Status Date / Time
amlodipine Allergy Unknown Verified 12/23/24 13:24
amoxicillin Allergy Pt does Verified 12/23/24 13:24
not
belieive
this is an
allergy
benazepril Allergy Hives Verified 12/23/24 13:24
codeine Allergy Nausea / Verified 12/23/24 13:24
Vomiting
dextromethorphan Allergy Itching, Verified 12/23/24 13:24
[From NyQuil] migraine
doxylamine [From NyQuil] Allergy Itching, Verified 12/23/24 13:24
migraine
gatifloxacin [From Tequin] Allergy Shortness Verified 12/23/24 13:24
of Breath,
Hives
hydromorphone [From Dilaudid] Allergy headache Verified 12/23/24 13:24
pseudoephedrine [From NyQuil] Allergy Itching, Verified 12/23/24 13:24
migraine
red dye Allergy Hives Verified 12/23/24 13:24
Ezrsfpz-BNS-QcT Reductase Allergy Aches Verified 12/23/24 13:24
Inhibitor
trifluoperazine Allergy seizure - Verified 12/23/24 13:24
[From Stelazine] 1975
Home Medications
cholecalciferol (vitamin D3) 25 mcg (1,000 unit) tablet 1,000 units PO NOON Supplement 01/09/22
coenzyme Q10 200 mg capsule (Co Q-10) 200 mg PO NOON Supplement 01/09/22
cyanocobalamin (vitamin B-12) 1,000 mcg tablet 1,000 mcg PO NOON Supplement 01/09/22
diazepam 5 mg tablet 5 - 10 mg PO HSPRN PRN ANXIETY 01/09/22
flaxseed oil 1,000 mg capsule 1,000 mg PO NOON herbal supplement 01/09/22
ascorbic acid (vitamin C) 500 mg tablet (Vitamin C) 500 mg PO NOON Supplement 01/19/22
apixaban 5 mg tablet (Eliquis) 5 mg PO BID Blood clot prevention/tx #60 tabs 05/31/23
aspirin 81 mg tablet,delayed release 81 mg PO DAILY Blood Clot Prevention/Tx 03/10/24
famotidine 20 mg tablet (Pepcid) 20 mg PO BID 03/10/24
magnesium oxide 400 mg (241.3 mg magnesium) tablet 400 mg PO NOON Supplement 03/10/24
potassium chloride 20 mEq tablet,extended release 20 meq PO BID #60 tabs 03/14/24
acetaminophen 325 mg tablet (Tylenol) 650 mg PO Q6HPRN PRN MILD PAIN 12/23/24
carvedilol 3.125 mg tablet (Coreg) 6.25 mg PO BID 12/23/24
furosemide 40 mg tablet 40 mg PO SUTUTHSA 12/23/24
furosemide 40 mg tablet (Lasix) 60 mg PO MOWEFR 12/23/24
losartan 25 mg tablet 12.5 mg PO QPM 12/23/24
pravastatin 10 mg tablet 10 mg PO 12/23/24
Review of Systems
-
History Source: Patient and Family (Daughter at bedside)
A 12 point ROS was completed and negative except as noted: Yes
Constitutional: Reports Fatigue; Denies Fever or Chills
EENT: Denies Sore Throat, Mouth Pain or Runny Nose
Respiratory: Denies Cough or Trouble Breathing
Cardiac: Reports Chest Pain (Midsternal chest pressure) and Palpitations; Denies Diaphoresis or Syncope
Abdomen/GI: Denies Abdominal Pain, Nausea, Vomiting, Diarrhea or Constipated
: Denies Dysuria, Frequency, Flank Pain or Difficulty Voiding
Musculoskeletal: Denies Joint Pain or Edema
Skin: Denies Itching or Rash
Neurological: Reports Dizzy; Denies Headache
Endocrine: Reports No Symptoms
Hematologic/Lymphatic: Reports No Symptoms
Psych: Reports Calm
Physical Exam
Vital Signs
Vital Signs
Temp Pulse Resp BP Pulse Ox
97.4 F 138 16 104/82 96
12/23/24 13:15 12/23/24 15:20 12/23/24 15:00 12/23/24 15:20 12/23/24 15:00
Physical Exam
General: Conversant and Pain (Midsternal chest pressure fullness 5 out of 10); No Fever or Chills
HEENT: NormoCephalic, Anicteric, Moist mucous membranes, PERRLA, [place] Conjunctivae and No Ptosis
Respiratory: Clear; No Wheezes, Rales or Rhonchi
Cardiac: S1/S2 and Regular Rhythm; No Murmur, Rub or Gallop
Breast: Deferred by me
GI: Soft, Non Tender, Non Distended, Normal Bowel Sounds and No Hepatosplenomegaly
Musculoskeletal: No Clubbing, No Cyanosis and No Edema
Skin: Warm and Dry; No Rash or Jaundice
Neuro: AO x 3, No Motor Deficits, Nonfocal/grossly intact, Cranial Nerves Intact and No Sensory Deficits; No Slurred Speech, Facial Droop, Tremors or Sedated
Psych: Calm
Laboratory Results
-
12/23/24 13:57
12/23/24 13:57
Laboratory Results
PT 17.6 Sec (11.4-14.6) H 12/23/24 13:57
INR 1.42 12/23/24 13:57
APTT 35.1 Sec (23.4-35.0) H 12/23/24 13:57
Total Bilirubin 1.4 mg/dl (0.2-1.3) H 12/23/24 13:57
AST 25 U/L (14-36) 12/23/24 13:57
ALT 20 U/L (0-35) 12/23/24 13:57
Alkaline Phosphatase 56 U/L (38-126) 12/23/24 13:57
Troponin I 0.036 ng/ml H* 12/23/24 13:57
Impression/Plan
-
Impression/plan:
Admit to IVU
# Troponin elevation concern for possible NSTEMI
Troponin 0.036, will trend
-Patient takes aspirin 81 mg daily took Coreg 6.25 mg in a.m. takes twice daily
-Intolerant to Zetia
-Continue pravastatin 10 mg Wednesday
-Check lipid profile
-Consult [facility]ology seen at bedside by Dr. Aguilar
EKG: ST depression inferior leads 2 ,3 and aVF, A-fib 139 bpm
Nuclear stress test 10/09/2024:
Inconclusive ECG for ischemia given the pharmacological study.
Probably normal study. There is a predominantly fixed small, mild defect in the apical inferior and mid inferior segments most consistent with
bowel attenuation noted in this region. No significant ischemia is seen
Systolic function is mildly reduced. The ejection fraction is 42%.
Stress Risk is moderate risk study (1 - 3% MS or /year)
#Rapid A-flutter/paroxysmal A-fib
#Status post MADELAINE/CV 03/09/2024 with recurrence 03/11/2024
#Status post ablation 03/28/2024 Dr. Aldana
-IV Cardizem drip
-Continue Eliquis
- Consult [facility]ology
# Chronic CHF possible acute
I/O, daily weights
Weight 83.5 kg , 87 kg on 11/27/2024 wt down 4.5 kg past 1 month
BNP 5110
Will give IV Lasix 20 mg single dose per cardiology
- Hold Lasix 60 mgMOWEFR, Lasix 40 mg SUTUTHSA-patient appears dry
2D echo 10/02/2024: EF 50-54%, normal LVS LVSF, mild dilated left atrium, mild MR/TR PASP 30-35 mmHg
# Labile hypotension due to IV Cardizem/HTN�benign
BP 104/82 > systolic 128
- Hold losartan 12.5 mg every afternoon
Continue carvedilol 6.25 mg p.o. twice daily with hold parameters
#HLD
-Check lipid profile
-Zetia intolerance
- Continue pravastatin 10 mg Wednesday
#PAD
#S/P left femoral endarterectomy 2021
#s/p Bilateral Femoral Endarterectomy and Left Iliac Stent
#Right subclavian stenosis
- Continue aspirin 81 mg daily, pravastatin 10 mg Wednesday
#Anxiety
Continue Valium 5 mg at bedtime as needed
#GERD
Continue Pepcid 20 mg p.o. twice daily
#Hypomagnesemia
-Continue Mag-Ox 400 mg at noon
-Check mag level
#Class I obesity�BMI 31.6 kg
Affects all aspects of care
Weight loss recommended patient states has lost 5 pounds in the past month intentionally
Low-fat diet
DVT prophylaxis
Full code
--- NOTE | 2024-12-23 15:42 | W.PN.UPDATE ---
Addendum entered and electronically signed by Lennxo Quiñonez MD 12/24/24 21:46:
Please disregard the previous addendum ; WRONG ENTRY
<del>Unexplained</del> <del>Hyperkalemia</del>
<del>-</del> <del>check</del> <del>random</del> <del>and</del> <del>AM</del> <del>cortisol</del>
<del>-</del> <del>Hold</del> <del>carvedilol</del> <del>due</del> <del>to</del> <del>BB</del> <del>activity</del> <del>increased</del> <del>K</del>
<del>-</del> <del>avoid</del> <del>NSAIDS</del>
Addendum entered and electronically signed by Lennox Quiñonez MD 12/23/24 20:39:
Unexplained Hyperkalemia
- check random and AM cortisol
- Hold carvedilol due to BB activity increased K
- avoid NSAIDS
Addendum entered and electronically signed by Lennox Quiñonez MD 12/23/24 17:07:
Currently HR 80s on Dilt gtt
BP 124/83
Chest pressure 5/10 despite control HR
Clinically hypovolemic to euvolemic
of note; noted discrepancy and interval drop in LVEF ( 10/02/24 TTE LVEF 50-54 % , 10/09 Geraldine stress LVEF 42% )
- Case dw Card
- to IV Lasix low dose x1 see how it goes
- f/u second TPN at 5pm, trend TPNI
- f/u further card evaluation for AC: Heparin gtt vs. stay on Eliquis
Original Note:
Update Note
Progress Note Update
This note serves as an addendum to the H&P by childcare provider RONNIE
Lissett SAMINA
HPI
79F Prx AF, chr Eliquis , chr amiodarone, HX sucessful CV in September 2024, Chr HFpEF sen at ER for CP
- report CP and feels like passing out since Wednesday12/19/24
- he took extra carvedilol yesterday and this morning but not improved
- EKG- fast A Fib
ER Tx.
Diltiazem gtt
BP dropped to low 100s
Vital Signs
Temp Pulse Resp BP Pulse Ox
97.4 F 138 16 104/82 96
12/23/24 13:15 12/23/24 15:20 12/23/24 15:00 12/23/24 15:20 12/23/24 15:00
11/27/24
12/23/24
13:44 12/23/24
15:20
Pulse 138
Blood pressure 104/82
Actual Weight 87 kg 83.5 kg
PE
Gen: NAD
HEENT: anicteric
Neck: supple
Lungs: CTA
Cor: soft HS ? irregular
Abdomen: soft benign
CATERING DIRECTOR: AAO3 , NFND
MS: no edema
Skin; dry
Psych: normal mood and affect
Data
Unremarkable CBC
INR 1.42
TB 1.4
K 5.2
Cr1.1
11/27/24 12/23/24
11:59 13:57
Potassium 3.8 5.2 H
Creatinine 0.9 1.1 H
eGFR > 60.00 51.75
EKG
SINUS TACHYCARDIA
NONSPECIFIC ST AND T WAVE ABNORMALITY
ABNORMAL ECG
WHEN COMPARED WITH ECG OF 27-NOV-2024 11:44,
PREMATURE ATRIAL COMPLEXES ARE NO LONGER PRESENT
VENT. RATE HAS INCREASED BY [address] NOW DEPRESSED IN INFERIOR LEADS
NONSPECIFIC T WAVE ABNORMALITY NOW EVIDENT IN INFERIOR LEADS
T WAVE INVERSION NO LONGER EVIDENT IN ANTERIOR LEADS
NONSPECIFIC T WAVE ABNORMALITY NOW EVIDENT IN LATERAL LEAD
10/09/24 Nuc Geraldine Stress test
- Inconclusive ECG for ischemia given the pharmacological study.
- Probably normal study.
- There is a predominantly fixed small, mild defect in the apical inferior and mid inferior segments most consistent with bowel attenuation noted in this region. No significant ischemia is seen
- Systolic function is mildly reduced. The ejection fraction is 42%.
- Stress Risk is moderate risk study (1 - 3% OK or /year)
10/02/24 TTE
Normal left ventricular size and low normal systolic function
LVEF 50-54%
Normal RV size and systolic function
Mildly dilated left atrium
Mild mitral regurgitation
Mild tricuspid regurgitation
Trileaflet thickened aortic valve without stenosis or regurgitation
No pericardial effusion
Compared to transesophageal echocardiogram dated 03/09/2024, ejection fraction is
now low normal, otherwise no significant change
01/28/24 TTE
EF 61%, no regional wall motion abnormalities noted, mild concentric LVH, mild MR, mild TR, PAP 25-30 mmHg
Last hospitalist admission: 03/10/2024 - 03/14/2024
DISCHARGE DIAGNOSES:
1. Acute heart failure with preserved ejection fraction.
2. Atrial fibrillation converted to normal sinus rhythm with
amiodarone.
ASSESSMENT & PLAN
Central Chest pressure suspect induced by fast AF
POS TPNI - suspect NIMI vs NSTEMI
Significant ST depression II, III and aVF ? Old
Inconclusive for ischemia but moderate stress risk Geraldine stress test in September 2024
- trend TPNI
- c/w ASA
- To consider heparin gtt in place of Eliquis if persistent Chest pressure
Paroxysmal AF with RVR
S/P atrial ablation 03/28/24
- agree with Diltiazem gtt for rate control
- continue STITCHDOWN THREAD LASTER Eliquis and ASA for now
- cont with Coreg
- DCA cards consult
Clinically euvolemic to hypovolemia
Acute HF - precipitated by fast AF vs. acute HF precipitate Fast AF
Underlying HFmEF vs HFpEF
- LVEF 50 -54 ( 22/10/24) but recent Geraldine stress LVEF was 42%
- Dry wt Weight stable around 88 kg ?
- Wt is down 4.5 kg in 4 weeks
- proBNP 5100
- Hypotensive 104/82
- jolie hold of IV diuressis for now
HANG suspect cardio renal syndrome
- Trend Cr with rate control of FAF and IV diuresis
Est ASCVD : PAD
HLD
- continue ASA and cholesterol lowering diet
Essential HTN
- continue carvedilol
Obesity d/t excess calories
DVT px: Eliquis
Code: Full
IVU
[2024-12-23 16:53] LABS: Magnesium 2.2 mg/dl (1.6-2.3)
[2024-12-23] MEDS: LASIX 20 MG IV (17:25)
[2024-12-23 17:26] LABS: Troponin I 0.034 ng/ml
[2024-12-23] MEDS: PEPCID 20 MG PO (21:07)
[2024-12-23] MEDS: ELIQUIS 5 MG PO (21:08)
[2024-12-23] MEDS: COREG 6.25 MG PO (21:08)
--- NOTE | 2024-12-23 21:55 | PTCARENOTE ---
received the patient from the ED. AAOx3. daughter at the bedside. Afib on tele low 100s. bp stable. patient denies any cp/sob at this time. states intermittent mid sternal chest 'achiness'. educated patient patient to inform RN with any new changes
overnight. Troponin sent. '
ambulated to the bathroom independently. increased HR- 140s. patient asymptomatic. HR returned to low 100s once settled back in bed.
[2024-12-23 21:57] LABS: Troponin I 0.044 ng/ml
[2024-12-23] MEDS: TYLENOL 650 MG PO (22:54)
--- NOTE | 2024-12-23 23:19 | PTCARENOTE ---
HR controlled Afib when resting in bed 90s-low 100s. when oob to the bathroom, HR increases 140s. patient states having sternal pain, explained as 'achy' 'like I swallowed something and its stuck.' rates the pain 3-5/10 on exertion. troponin
increase- 0.044. cardizem restarted. bp stable- 120/74. updated Dr. Aguilar via TT. 0700 troponin and continue IV cardizem per MD. educated patient to inform RN with any changes overnight.
PRN tylenol given for a headache, see sep.
[2024-12-24] VITALS (10 sets, daily range): BP systolic 84–157; BP diastolic 41–72; BMI 30.6
--- NOTE | 2024-12-24 00:44 | W.PN.UPDATE ---
Update Note
Progress Note Update
Spoke with pt at bedside and verified with her scanned DNR in the chart. Pt wishes code status to be changed form Full code to DNR. Reviewed what this entails (no CPR, compressions or intubation) pt verbalized understanding. code status changed.
--- NOTE | 2024-12-24 03:05 | PTCARENOTE ---
at approx 0240- Aflutter on tele with lower rates- 50s-60s with pauses. Cris Cruz DROSS SKIMMER updated- cardizem gtt lowered to 2.5 ml/hr. bp 94/64. placed on 2L- patient states history of sleep apnea. denies any lightheadedness/dizziness.
0305- HR continued to be slow Aflutter (40s-50s) with pauses (>2 seconds). asymptomatic. cardizem gtt turned off. DROSS SKIMMER updated.
[2024-12-24] MEDS: PEPCID 20 MG PO (07:28)
[2024-12-24] MEDS: ASPIR LOW (ENTERIC COATED) 81 MG PO (07:28)
[2024-12-24] MEDS: ELIQUIS 5 MG PO ×2 (07:28→20:09)
[2024-12-24] MEDS: COREG 6.25 MG PO ×2 (07:28→20:09)
[2024-12-24 07:35] LABS: % Basophils 1.5 % (0-2); % Eosinophils 3.1 % (0-6); % Immature Granulocytes 0.2 % (0-0.5); % Lymphocytes 27.7 % (20.5-51.1); % Monocytes 8.1 % (1.7-9.3); % Neutrophils 59.4 % (42.2-75.2); Absolute Basophils 0.1 10^3/uL (0-0.2); Absolute Eosinophils 0.2 10^3/uL (0-0.7); Absolute Lymphocytes 1.3 10^3/uL (1.2-3.4); Absolute Monocytes 0.4 10^3/uL (0.1-0.6); Absolute Neutrophils 2.9 10^3/uL (1.4-6.5); Hematocrit 42.5 % (37.0-47.0); Hemoglobin 14.2 g/dL (12.0-16.0); Mean Corp Hgb Conc. 33.4 g/dL (33.0-37.0); Mean Corpuscular Hgb 30.6 pg (27.0-31.0); Mean Corpuscular Volume 91.6 fL (81.0-99.0); Mean Platelet Volume 11.3 fL (7.4-10.4); Nucleated Red Blood Cells % 0 %; Platelet Count 182 10^3/uL (130-400); Red Blood Cell Count 4.64 10^6/uL (4.20-5.40); Red Cell Dist. Width 12.6 % (11.5-14.5); White Blood Cell Count 4.8 10^3/uL (4.8-10.8)
[2024-12-24 07:58] LABS: Troponin I 0.051 ng/ml
[2024-12-24 08:19] LABS: ALT (SGPT) 18 U/L (0-35); AST (SGOT) 19 U/L (14-36); Albumin 4.5 g/dl (3.5-5.0); Alkaline Phosphatase 49 U/L (38-126); Blood Urea Nitrogen 25 mg/dl (7-17); Calcium 9.4 mg/dl (8.4-10.2); Carbon Dioxide 27 mmol/L (22-30); Chloride 106 mmol/L (98-107); Estimated Creatinine Clearance 44 ml/min; Glucose 113 mg/dl (70-99); HDL Cholesterol 37 mg/dl; LDL Cholesterol, Calculated 99 mg/dl; Potassium 4.3 mmol/L (3.5-5.1); Sodium 140 mmol/L (135-145); Total Bilirubin 1.3 mg/dl (0.2-1.3); Total Cholesterol 168 mg/dl (50-199); Total Protein 7.3 g/dl (6.3-8.2); Triglyceride 161 mg/dl (10-149); Very Low Density Lipoprotein 32 mg/dl (0-30); eGFR 51.75
[2024-12-24 08:47] LABS: TSH Reflex To Free T4 1.69 uIU/ml (0.47-4.68)
--- NOTE | 2024-12-24 08:47 | W.PN.CARDCBS ---
Addendum entered and electronically signed by Jose M Aguilar, 12/24/24 21:18:
.
Impression should also include PVI Mar 2024
Original Note:
Today's Communication / Plan
-
Appears to have converted to sinus with PACs
Stop IV cardizem.
Cont Coreg at 6.25 mg BID, just increased
She had side effects with amiodarone previously but states she had tolerated amiodarone 100 mg daily, will hold off on adding amiodarone for now.
Continue anticoagulation with Eliquis
Trend troponin until peaks. If troponin continues to climb may transition from Eliquis to IV heparin.
IV Lasix diuresis. Monitor daily weights I's and O's and creatinine. Wt down over 5 lbs last 24 hrs, not clear if accurate.
Increase lasix to 40 mg IV daily
Consider echo before discharge or can be done as outpt pending timing of d/c.
Impression / Plan
-
.
Primary Associate Publisher: Dr. Mccray
Primary EP: Dr. Nick
Impression:
Presentation with SOB and atrial flutter
Acute HFpEF, proBNP greater than 5000
Hyperkalemia
Elevated troponin 0.036
Hx Paroxysmal Afib s/p successful MADELAINE/CV 03/09/24 with recurrence 03/11/24
OAC with eliquis
Multiple medication intolerances
PAD
s/p left femoral endarterectomy 2021
right subclavian stenosis
Hyperlipidemia with statin and Zetia intolerance
HTN
ECHO 01/28/24: EF 61%, no regional wall motion abnormalities noted, mild concentric LVH, mild MR, mild TR, PAP 25-30 mmHg
Echo September 2024: EF 50 to 54%, normal RV size and function, mild MR, mild TR, no pericardial effusion.
Lexiscan nuclear stress September 2024: Probably normal study. There is a predominantly fixed small, mild defect in the apical inferior and mid inferior segments most consistent with bowel attenuation noted in this region. No significant ischemia is
seen. Systolic function is mildly reduced. The ejection fraction is 42%. Compared with the study performed on 01/02/2022. There is decreased left ventricular ejection fraction from 61% to 42%.
Plan:
Appears to have converted to sinus with PACs
Stop IV cardizem.
Cont Coreg at 6.25 mg BID, just increased
She had side effects with amiodarone previously but states she had tolerated amiodarone 100 mg daily, will hold off on adding amiodarone for now.
Continue anticoagulation with Eliquis
Trend troponin until peaks. If troponin continues to climb may transition from Eliquis to IV heparin.
IV Lasix diuresis. Monitor daily weights I's and O's and creatinine. Wt down over 5 lbs last 24 hrs, not clear if accurate.
Increase lasix to 40 mg IV daily
Consider echo before discharge or can be done as outpt pending timing of d/c.
Discussed nursing
Progress Note - Associate Publisher
Subjective
Date of Service: December 24, 2024
Pt seen and examined. No complaints. No chest pain or shortness of breath.
Objective
Labs:
12/24/24 07:23
12/24/24 07:23
Labs
Hgb 14.2 g/dL (12.0-16.0) 12/24/24 07:23
Hct 42.5 % (37.0-47.0) 12/24/24 07:23
Plt Count 182 10^3/uL (130-400) 12/24/24 07:23
PT 17.6 Sec (11.4-14.6) H 12/23/24 13:57
INR 1.42 12/23/24 13:57
APTT 35.1 Sec (23.4-35.0) H 12/23/24 13:57
Sodium 140 mmol/L (135-145) 12/24/24 07:23
Potassium 4.3 mmol/L (3.5-5.1) 12/24/24 07:23
BUN 25 mg/dl (7-17) H 12/24/24 07:23
Creatinine 1.1 mg/dL (0.6-1.0) H 12/24/24 07:23
Glucose 113 mg/dl (70-99) H 12/24/24 07:23
Troponins
12/23/24 12/23/24 12/23/24
13:57 16:44 21:11
Troponin I 0.036 H* 0.034 0.044 H* D
12/24/24
07:23
Troponin I 0.051 H*
Vital Signs and I&O:
Vital Signs
Temp Pulse Resp BP Pulse Ox
97.6 F 105 20 98/67 95
12/24/24 07:54 12/24/24 06:45 12/24/24 07:54 12/24/24 05:02 12/24/24 07:54
Vital Signs
Temp Pulse Resp BP Pulse Ox
97.6 F 105 20 98/67 95
12/24/24 07:54 12/24/24 06:45 12/24/24 07:54 12/24/24 05:02 12/24/24 07:54
Intake & Output
12/22/24 12/23/24 12/24/24 12/25/24
06:59 06:59 06:59 06:59
Output Total 275 / 275
Balance -275 / -275
Physical Exam
Physical Exam
General: No acute distress, AAOX3
Neck: Negative JVD
Heart: Regular, Negative S3 positive S1/S2, Negative S4, No murmur
Lungs: CTA b/l, negative wheezes/rales/rhonchi
Abd: Positive BS, NT/ND, neg rebound/rigidity/guarding
Ext: Negative cyanosis/clubbing/edema
Neuro: nonfocal
--- NOTE | 2024-12-24 09:05 | W.PN.HOSP.TC ---
Today's Communication/Plan
-
see bold
Assessment / Plan
Assessment / Plan
#Rapid A-flutter/paroxysmal A-fib
#Status post MADELAINE/CV 03/09/2024 with recurrence 03/11/2024
#Status post ablation 03/28/2024 Dr. Aldana
Appreciate cardiology input, patient has converted to sinus rhythm with PACs
Status post IV Cardizem drip, continue Coreg 6.25 mg twice a day, Eliquis
Unable to tolerate amiodarone
#Acute heart failure with a preserved ejection fraction
Continue IV Lasix, trend creatinine, trend daily weights
#Elevated troponin
Likely due to rapid atrial fibrillation and acute heart failure
Continue aspirin, statin, Eliquis
##PAD
#S/P left femoral endarterectomy 2021
#s/p Bilateral Femoral Endarterectomy and Left Iliac Stent
#Right subclavian stenosis
Continue aspirin 81 mg daily, pravastatin 10 mg Wednesday
#Anxiety
Continue Valium 5 mg at bedtime as needed
#GERD
Continue Pepcid 20 mg p.o. twice daily
#Hypomagnesemia
-Continue Mag-Ox 400 mg at noon
-Check mag level
#Class I obesity�BMI 31.6 kg
Affects all aspects of care
Weight loss recommended patient states has lost 5 pounds in the past month intentionally
Low-fat diet
DVT prophylaxis -Eliquis
DNR
Total time spent to see the patient on the floor, examine the patient, review data and lab results, discuss treatment plan with patient, nursing staff around 45 minutes.
Physical Exam
General: Obese, no acute distress
HEENT: Normocephalic, Atraumatic, EOMI, MMM
Respiratory: Clear to Auscultation bilaterally
Cardiac: Normal S1/S2, irregular rhythm
GI: Soft, Nontender, Nondistended, Normal Bowel Sounds
Extremities: No Clubbing, Cyanosis, or Edema
Neuro: Nonfocal/Grossly Intact
Psych: Calm, Cooperative
Anticipated Discharge: 24 - 48 hours
Subjective/Interval History
-
Date of Service: December 24, 2024
Patient reports feeling better. Her dyspnea with activity and chest pressure has improved. Her fatigue is also improved. Denies palpitations. No fever, no vomiting.
Objective Data
-
Labs:
Laboratory Results
12/24/24
07:23
WBC 4.8
Hgb 14.2
Hct 42.5
Plt Count 182
Sodium 140
Potassium 4.3
Chloride 106
Carbon Dioxide 27
BUN 25 H
Creatinine 1.1 H
Glucose 113 H
Calcium 9.4
Total Bilirubin 1.3
AST 19
ALT 18
Alkaline Phosphatase 49
Vital Signs:
Vital Signs
Temp Pulse Resp BP Pulse Ox
97.6 F 105 20 98/67 95
12/24/24 07:54 12/24/24 06:45 12/24/24 07:54 12/24/24 05:02 12/24/24 07:54
I&O
12/23/24 12/24/24 12/25/24
06:59 06:59 06:59
Output Total 275 / 275
Balance -275 / -275
[2024-12-24] MEDS: LASIX 40 MG IV (11:18)
[2024-12-24] MEDS: VITAMIN B-12 1000 MCG PO (11:21)
[2024-12-24] MEDS: VITAMIN D3 (cholecalciferol) 25 MCG PO (11:21)
[2024-12-24] MEDS: VITAMIN C 500 MG PO (11:21)
[2024-12-24] MEDS: MAG-TAB SR 84 MG PO (11:24)
[2024-12-24 12:25] LABS: Glycohemoglobin (HgbA1c) 5.6 % (4.0-5.6)
[2024-12-24 13:54] LABS: Troponin I 0.042 ng/ml
--- NOTE | 2024-12-24 18:07 | PTCARENOTE ---
Pt received this am in Aflutter, converted to SR with PAC's at approx 9am. ECG completed and Dr. Aguilar notified. Pt oob ad karina, gait steady. Room air, sat 95 - 96%. No c/o offered.
--- NOTE | 2024-12-24 21:50 | PTCARENOTE ---
Addendum entered by Majo Arteaga RN 12/25/24 00:16:
tele = SR/SA/PACs
Original Note:
Pt received from previous shift in bed. AAOx3, pleasant, family visiting. Full physical assessment completed (refer to worklist) Plan of care discussed. Pt OOB ambulating halls w/daughter, reports intermittent lightheadedness w/prolonged
activity. #20 LFA patent. Offers no complaints. Call danette w/in reach.
[2024-12-25 03:09] VITALS: BP 109/54
[2024-12-25 04:07] LABS: Blood Urea Nitrogen 26 mg/dl (7-17); Calcium 9.3 mg/dl (8.4-10.2); Carbon Dioxide 29 mmol/L (22-30); Chloride 105 mmol/L (98-107); Estimated Creatinine Clearance 48 ml/min; Glucose 90 mg/dl (70-99); Potassium 4.1 mmol/L (3.5-5.1); Sodium 140 mmol/L (135-145); eGFR 58.02
[2024-12-25 06:00] VITALS: BMI 30.4
[2024-12-25 07:56] VITALS: BP 138/58
--- NOTE | 2024-12-25 08:16 | W.PN.HOSP.TC ---
Addendum entered and electronically signed by Nataliya Dahl MD 12/25/24 09:03:
d/w Card Dr. Villatoro, OK for discharge and cont prior home lasix dose
total DC time 45 min
Original Note:
Today's Communication/Plan
-
see A/P
Assessment / Plan
Assessment / Plan
A/P:
# Rapid A-flutter/paroxysmal A-fib
# Status post MADELAINE/CV 03/09/2024 with recurrence 03/11/2024
# Status post ablation 03/28/2024 Dr. Aldana
Status post IV Cardizem drip, continue Coreg 6.25 mg twice a day, Eliquis
Unable to tolerate amiodarone
Appreciate cardiology input, patient has converted to sinus rhythm with PACs
# Acute heart failure with preserved ejection fraction
Continue IV Lasix 40 mg daily, trend creatinine, trend daily weights
# Elevated troponin due to non-ischemic myocardial injury, likely due to rapid atrial fibrillation and acute heart failure
Continue aspirin, statin, Eliquis
# PAD
# S/P left femoral endarterectomy 2021
# s/p Bilateral Femoral Endarterectomy and Left Iliac Stent
# Right subclavian stenosis
Continue aspirin 81 mg daily, pravastatin 10 mg Wednesday
# Anxiety
Continue Valium 5 mg at bedtime as needed
# GERD
Continue Pepcid 20 mg p.o. twice daily
# Hypomagnesemia
Continue Mag-Ox 400 mg at noon
Check mag level
# Class I obesity
BMI 31.6 kg
Affects all aspects of care
Weight loss recommended patient states has lost 5 pounds in the past month intentionally
Low-fat diet
DVT prophylaxis-Eliquis
DNR
Anticipated Discharge: 24 - 48 hours
Subjective/Interval History
-
Date of Service: December 25, 2024
Objective Data
-
Labs:
Laboratory Results
12/25/24
03:19
Sodium 140
Potassium 4.1
Chloride 105
Carbon Dioxide 29
BUN 26 H
Creatinine 1.0
Glucose 90
Calcium 9.3
Vital Signs:
Vital Signs
Temp Pulse Resp BP Pulse Ox
36.6 C 80 20 109/54 94
12/25/24 07:56 12/25/24 03:12 12/25/24 07:56 12/25/24 03:09 12/25/24 07:56
I&O
12/24/24 12/25/24 12/26/24
06:59 06:59 06:59
Output Total 275 / 275 625 / 625
Balance -275 / -275 -625 / -625
Review of Systems
-
History Source: Patient
All other systems: Reviewed and negative
Physical Exam
-
General: Well Developed, Well Nourished, No Apparent Distress, Comfortable and Conversant
HEENT: Normocephalic and Atraumatic
Respiratory: Clear to Auscultation and Non Labored Respirations; Negative Crackles or Accessory Resp Muscle Use
Cardiac: Regular Rhythm and S1/S2
GI: Soft, Nontender and Nondistended
Musculoskeletal: No Edema
Neuro: Awake, Alert and AO x 3
Psych: Calm and Intact Judgement/Insight
Data Reviewed
-
Labs: Labs Reviewed by me
[2024-12-25] MEDS: ASPIR LOW (ENTERIC COATED) 81 MG PO (08:36)
[2024-12-25] MEDS: PEPCID 20 MG PO (08:36)
[2024-12-25] MEDS: COREG 6.25 MG PO (08:41)
[2024-12-25] MEDS: ELIQUIS 5 MG PO (08:42)
[2024-12-25] MEDS: LASIX 40 MG IV (08:42)
--- NOTE | 2024-12-25 11:01 | PTCARENOTE ---
Pt denies any discomfort, telemetry shows sinus rhythm with PAC's. Pt seen by Te and Shauna. Telemetry and IV device removed. Discharge instructions reviewed with pt regarding CHF guidelines, medications and their new doses and possible side
effects, reporting cares and concerns and follow up appt's and lab tests. Very good understanding taught back to this RN. Pt escorted out via wheelchair and discharged to home.
--- NOTE | 2024-12-25 12:22 | W.PN.CARDCBS ---
Today's Communication / Plan
-
Okay to transition back to usual home Lasix dosing
Stable for discharge from my perspective. Outpatient follow-up to be arranged.
Impression / Plan
-
Primary Regrinder Operator: Dr. cMcray
Primary EP: Dr. Nick
Impression:
Presentation with SOB and atrial flutter
Acute HFpEF, proBNP greater than 5000
Hyperkalemia
Elevated troponin 0.036
Hx Paroxysmal Afib s/p successful MADELAINE/CV 03/09/24 with recurrence 03/11/24
OAC with eliquis
Multiple medication intolerances
PAD
s/p left femoral endarterectomy 2021
right subclavian stenosis
Hyperlipidemia with statin and Zetia intolerance
HTN
ECHO 01/28/24: EF 61%, no regional wall motion abnormalities noted, mild concentric LVH, mild MR, mild TR, PAP 25-30 mmHg
Echo September 2024: EF 50 to 54%, normal RV size and function, mild MR, mild TR, no pericardial effusion.
Lexiscan nuclear stress September 2024: Probably normal study. There is a predominantly fixed small, mild defect in the apical inferior and mid inferior segments most consistent with bowel attenuation noted in this region. No significant ischemia is
seen. Systolic function is mildly reduced. The ejection fraction is 42%. Compared with the study performed on 01/02/2022. There is decreased left ventricular ejection fraction from 61% to 42%.
Plan:
Converted from AFib/Flutter to sinus with PACs
Cont Coreg at 6.25 mg BID, just increased
Continue anticoagulation with Eliquis
Low level troponin elevation noted. Suspect nonischemic myocardial injury troponin elevation in the setting of AFlutterRVR and acute CHF.
Has responded well to IV diuresis. Plan to transition back to oral Lasix. Continue home dosing of 60mg daily MWF and 40mg daily other days.
Discussed nursing and hospitalist
Stable for discharge from my perspective. Outpatient follow-up to be arranged.
Progress Note - Regrinder Operator
Subjective
Date of Service: December 25, 2024
No acute overnight events. Resting comfortably elevated chair in the IVU the time of evaluation. Tells me her breathing is comfortable. No chest discomfort. Maintaining sinus rhythm on telemetry overnight.
Objective
Labs:
12/24/24 07:23
12/25/24 03:19
Labs
Hgb 14.2 g/dL (12.0-16.0) 12/24/24 07:23
Hct 42.5 % (37.0-47.0) 12/24/24 07:23
Plt Count 182 10^3/uL (130-400) 12/24/24 07:23
PT 17.6 Sec (11.4-14.6) H 12/23/24 13:57
INR 1.42 12/23/24 13:57
APTT 35.1 Sec (23.4-35.0) H 12/23/24 13:57
Sodium 140 mmol/L (135-145) 12/25/24 03:19
Potassium 4.1 mmol/L (3.5-5.1) 12/25/24 03:19
BUN 26 mg/dl (7-17) H 12/25/24 03:19
Creatinine 1.0 mg/dL (0.6-1.0) 12/25/24 03:19
Glucose 90 mg/dl (70-99) 12/25/24 03:19
Troponins
12/23/24 12/23/24 12/23/24
13:57 16:44 21:11
Troponin I 0.036 H* 0.034 0.044 H* D
12/24/24 12/24/24
07:23 13:22
Troponin I 0.051 H* 0.042 H*
Vital Signs and I&O:
Vital Signs
Temp Pulse Resp BP Pulse Ox
98 F 57 20 138/58 94
12/25/24 07:56 12/25/24 08:41 12/25/24 07:56 12/25/24 08:41 12/25/24 08:51
Vital Signs
Temp Pulse Resp BP Pulse Ox
98 F 57 20 138/58 94
12/25/24 07:56 12/25/24 08:41 12/25/24 07:56 12/25/24 08:41 12/25/24 08:51
Intake & Output
12/23/24 12/24/24 12/25/24 12/26/24
06:59 06:59 06:59 06:59
Output Total 275 / 275 625 / 625 350 / 350
Balance -275 / -275 -625 / -625 -350 / -350
Physical Exam
Physical Exam
Gen: NAD, AAOx3
HEENT: NC/AT, sclera anicteric
Neck: No JVD
CV: RRR, NL s1/s2, no M/R/G
Lungs: CTAB
Abd: S/ND
Ext: No LE edema
Skin: Warm, dry
Neuro: Non-focal
--- NOTE | 2024-12-25 13:37 | W.DCSUMMARY ---
Discharge Summary
Discharge Data
Date of Admission: 12/23/24
Date of Discharge: 12/25/24
-
Pending Results: No
Hospital Course
Principal Diagnosis:
Rapid A-flutter in setting of paroxysmal atrial fibrillation
Acute heart failure with preserved ejection fraction
Elevated troponin due to non-ischemic myocardial injury, likely due to rapid atrial fibrillation and acute heart failure
Chronic Diagnoses:�
Status post MADELAINE/CV 03/09/2024 with recurrence 03/11/2024
Status post ablation 03/28/2024 Dr. Aldana
Peripheral artery disease status post left femoral endarterectomy 2021, s/p Bilateral Femoral Endarterectomy and Left Iliac Stent
Right subclavian stenosis
Anxiety, on Valium 5 mg at bedtime as needed
GERD, on Pepcid 20 mg p.o. twice daily
Class I obesity, BMI 31.6 kg
Consultations:�
Cardiology
Procedures:�
None
Clinical course:�
This is a 79-year-old female, with past medical history as stated above, who presented with tachycardia and chest pressure.
Problem 1:
Rapid A-flutter/paroxysmal A-fib.
She was treated with IV Cardizem drip and spontaneously converted to sinus rhythm with PACs.
She can continue with Coreg 6.25 mg twice a day, and Eliquis for anticoagulation.
Problem 2:
Acute heart failure with preserved ejection fraction.
She was treated with IV Lasix 40 mg daily while in the hospital, and was discharged with previous home dose Lasix (alternating 40 mg and 60 mg).
As for the rest of her medical problems, they were stable during her hospital stay.
Discharge Plan
-
Patient Disposition: Home (Routine Discharge)
Discharge Diagnosis/Procedures: Rapid A-flutter/paroxysmal A-fib status post Cardizem drip and converted to sinus rhythm with PACs;
Acute heart failure with preserved ejection fraction
Condition: Good
Diet: As tolerated, Low Sodium and Restrict fluids to 64 oz
Activity: With assistance
Driving Restrictions: As prior to admission
Blood Work: BMP with your PCP in 1 week
Referrals:
Chucky Pierre MD [Family Provider] - in less than 1 week
Prescriptions:
Continued
cholecalciferol (vitamin D3) 1,000 UNITS tablet
1,000 units PO NOON
cyanocobalamin (vitamin B-12) 1,000 MCG tablet
1,000 mcg PO NOON
flaxseed oil 1,000 MG capsule
1,000 mg PO NOON
diazepam 5 MG tablet
5 - 10 mg PO HSPRN PRN (Reason: ANXIETY)
coenzyme Q10 [Co Q-10] 200 MG capsule
200 mg PO NOON
ascorbic acid (vitamin C) [Vitamin C] 500 MG tablet
500 mg PO NOON
Eliquis 5 mg Tablet
5 mg PO BID Qty: 60 11RF
aspirin 81 mg Tablet,Delayed Release (Dr/Ec)
81 mg PO DAILY
famotidine [Pepcid] 20 mg Tablet
20 mg PO BID
magnesium oxide 400 mg (241.3 mg magnesium) Tablet
400 mg PO NOON
potassium chloride 20 mEq tablet extended release
20 meq PO BID Qty: 60 0RF
furosemide [Lasix] 40 mg Tablet
60 mg PO MOWEFR
carvedilol [Coreg] 3.125 mg Tablet
6.25 mg PO BID
pravastatin 10 mg Tablet
10 mg PO MOWEFR
losartan 25 mg Tablet
12.5 mg PO QPM
furosemide 40 mg tablet
40 mg PO SUTUTHSA
acetaminophen [Tylenol] 325 mg Tablet
650 mg PO Q6HPRN PRN (Reason: MILD PAIN)
Discharge Orders:
Discharge Patient (As Directed); Ordered 12/25/24
Ordered By: Nataliya Dahl
Discharge Date and Time
Discharge Date/Time: 12/25/24 10:57
Print Language: MACEDONIAN
== END 2024-12-25 10:57 | disposition home or self-care (01) | DRG 308 ==
LOC: IVU 17:09
PROVIDERS: Clinical Nurse Specialist Family Health; Family Medicine; ADMITTING PHYSICIAN Internal Medicine; ATTENDING PHYSICIAN Internal Medicine; CONSULT PHYSICIAN Nuclear Medicine Nuclear Cardiology; EMERGENCY PHYSICIAN Emergency Medicine; FAMILY PHYSICIAN Family Medicine
DX: I48.0 Paroxysmal atrial fibrillation (principal); I50.33 Acute on chronic diastolic (congestive) heart failure; I5A Non-ischemic myocardial injury (non-traumatic); I48.92 Unspecified atrial flutter; I11.0 Hypertensive heart disease with heart failure; E87.5 Hyperkalemia; F41.9 Anxiety disorder, unspecified; K21.9 Gastro-esophageal reflux disease without esophagitis; E83.42 Hypomagnesemia; I73.9 Peripheral vascular disease, unspecified; E66.811 Obesity, class 1; Z66 Do not resuscitate; Z68.31 Body mass index [BMI] 31.0-31.9, adult; Z87.891 Personal history of nicotine dependence; Z79.82 Long term (current) use of aspirin; Z79.899 Other long term (current) drug therapy; Z79.01 Long term (current) use of anticoagulants
CPT/HCPCS: 71045; 80048; 80053; 80061; 83036; 83735; 83880; 84443; 84484; 85025; 85610; 85730; 93005; 96365; 96366; 96375; 99285

== ENCOUNTER 2025-01-11 07:29 | Inpatient (IN) | payer MEDICARE, OTHER, SELFPAY ==
[2025-01-10] VITALS (12 sets, daily range): BP systolic 105–171; BP diastolic 50–100; BMI 30.3; BMI 29.6
[2025-01-10 00:44] LABS: % Eosinophils 3.1 % (0-6); % Immature Granulocytes 0.6 % (0-0.5); % Monocytes 9.1 % (1.7-9.3); % Neutrophils 58.2 % (42.2-75.2); Absolute Basophils 0.1 10^3/uL (0-0.2); Absolute Eosinophils 0.2 10^3/uL (0-0.7); Absolute Lymphocytes 1.4 10^3/uL (1.2-3.4); Absolute Monocytes 0.4 10^3/uL (0.1-0.6); Absolute Neutrophils 2.8 10^3/uL (1.4-6.5); Hematocrit 39.9 % (37.0-47.0); Hemoglobin 13.6 g/dL (12.0-16.0); Mean Corp Hgb Conc. 34.1 g/dL (33.0-37.0); Mean Corpuscular Hgb 30.8 pg (27.0-31.0); Mean Corpuscular Volume 90.3 fL (81.0-99.0); Mean Platelet Volume 11.2 fL (7.4-10.4); Nucleated Red Blood Cells % 0 %; Platelet Count 165 10^3/uL (130-400); Red Blood Cell Count 4.42 10^6/uL (4.20-5.40); Red Cell Dist. Width 13.1 % (11.5-14.5); White Blood Cell Count 4.8 10^3/uL (4.8-10.8)
[2025-01-10 00:57] LABS: ALT (SGPT) 43 U/L (0-35); AST (SGOT) 65 U/L (14-36); Albumin 4.4 g/dl (3.5-5.0); Alkaline Phosphatase 67 U/L (38-126); Blood Urea Nitrogen 28 mg/dl (7-17); Calcium 9.3 mg/dl (8.4-10.2); Carbon Dioxide 24 mmol/L (22-30); Chloride 106 mmol/L (98-107); Estimated Creatinine Clearance 38 ml/min; Glucose 122 mg/dl (70-99); Potassium 4.2 mmol/L (3.5-5.1); Sodium 141 mmol/L (135-145); Total Bilirubin 1.2 mg/dl (0.2-1.3); Total Protein 6.9 g/dl (6.3-8.2); eGFR 42.35
--- NOTE | 2025-01-10 01:01 | ED.GENMED ---
History of Present Illness
General
Chief Complaint: Chest Pain
Source: patient and family
Exam Limitations: none
Time Seen by Provider: 01/10/25 00:18
History of Present Illness
History of Present Illness:
79-year-old female onset of shortness of breath chest tightness late this afternoon. Recurred again this evening. Shortness of breath is ongoing. Recent admission for atrial fibrillation. However she did not feel her heart rate was fast during
these episodes. Currently still has some mild shortness of breath
Past History
Past History
ED Past Medical History: Arrthythmia (Atrial fibrillation), Cancer (Skin), GERD, HTN, Hypercholesterolemia, Psychiatric (anxiety) and Other (PAD)
ED Past Surgical History: Cholecystectomy, Gynecological (tubal ligation) and Tonsilectomy
Patient has exhibited threatening behavior?: No
PSI?: No
Social History
Tobacco: Former smoker
Alcohol: None
Personal:
Living: with family
Review of Systems
Review of Systems
All Other Systems: Not applicable
Constitutional: Denies fever or chills
Respiratory: Denies cough
Phy Exam
Physical Exam
Physical Exam:
GENERAL: Alert and oriented in no apparent distress
EYE: Orbits normal.
NECK: Supple, no significant adenopathy.
ENT: Pharynx without erythema
CARDIAC: Regular rate and rhythm without any obvious murmurs.
LUNGS: Crackles in both bases. No respiratory distress however
ABDOMEN: Soft, without focal tenderness or distention
NEUROLOGICAL: Alert and oriented , grossly non-focal
SKIN: Warm and dry, no rash or lesion, no discoloration, skin intact.
MUSCULOSKELETAL: No edema,no deformity.Good color
PSYCH: Normal and appropriate interaction.
Scores
Heart Score for Chest Pain Patients
STEMI patient?: No
History: Moderately Suspicious
ECG: Nonspecific Repolarization
Age: >/= 65 years
Risk Factors: >/= 3 Risk Factors or History of CAD
Troponin: </= Normal Limit
Heart Score for Chest Pain Patients: 6
Heart Score Risk: 20.3% MACE over next 6 weeks
Course
Orders/Labs/Results
Orders:
Orders
01/10/25 00:05
EKG [Electrocardiogram (*1)] Urgent
Reason for Study: Chest Pain
EKG- Treatment ONCE
01/10/25 00:32
Complete Blood Count/With Diff Urgent
Comprehensive Metabolic Panel Urgent
NT-proBNP Urgent
Comment: ADDED
Troponin I Urgent
01/10/25 00:36
Add On- LAB Urgent
Tests Added?: Pro-BNP
01/10/25 00:43
CXR2 [CR Chest - 2 Views ] Urgent
Comment:
Reason For Exam: Short of breath/crackles
01/10/25 01:14
Furosemide [Lasix] 40 mg IV NOW STA
Abnormal Lab Results
01/10/25
00:32
MPV 11.2 H fL
(7.4-10.4)
Immature Gran % 0.6 H %
(0-0.5)
BUN 28 H mg/dl
(7-17)
Creatinine 1.3 H mg/dL
(0.6-1.0)
Glucose 122 H mg/dl
(70-99)
AST 65 H U/L
(14-36)
ALT 43 H U/L
(0-35)
01/10/25 00:32
01/10/25 00:32
Vital Signs
Initial and Last Documented VS:
Initial Vital Signs
Temp Pulse Resp BP Pulse Ox
97.6 F 73 20 155/100 95
01/10/25 00:13 01/10/25 00:13 01/10/25 00:13 01/10/25 00:13 01/10/25 00:13
Last Documented Vital Signs
Temp Pulse Resp BP Pulse Ox
97.6 F 72 15 156/100 97
01/10/25 00:13 01/10/25 01:18 01/10/25 01:18 01/10/25 01:18 01/10/25 01:18
*Pulse Oximetry
Patient hypoxic: no (93% on room air)
*EKG
Interpreted by ED Provider?: Yes
Interpretation: abnormal
Comparison EKG: changes noted
Heart Rate: 78
Rate: normal
Rhythm: sinus
[place]: normal axis
Interval: normal interval
QRS Pattern: normal QRS
Ischemia: no ischemia
*[employer] Interpretation
Rate: normal
Interpretation: normal
Heart Rate: 76
Rhythm: sinus
*Critical Care Note
Total Time (30-74mins, 75-104mins- exclusive of procedures): Not Applicable
ED Attending Note
-
Portions of this chart may have been created with voice recognition software.� Occasional wrong word or��sound alike� substitutions may have occurred due to the inherent limitations of voice recognition software.
Discharge Plan
Departure
Patient Disposition: Admit
Date of Disposition: 01/10/25
Time of Disposition: 01:40
Presentation/result/management discussed w/ accepting MD/DO: Hospitalist
Discharge Problem:
Unstable angina, CHF, History of atrial fibrillation
Prescriptions:
No Action
cholecalciferol (vitamin D3) 1,000 UNITS tablet
1,000 units PO NOON
cyanocobalamin (vitamin B-12) 1,000 MCG tablet
1,000 mcg PO NOON
flaxseed oil 1,000 MG capsule
1,000 mg PO NOON
diazepam 5 MG tablet
5 - 10 mg PO HSPRN PRN (Reason: ANXIETY)
coenzyme Q10 [Co Q-10] 200 MG capsule
200 mg PO NOON
ascorbic acid (vitamin C) [Vitamin C] 500 MG tablet
500 mg PO NOON
Eliquis 5 mg Tablet
5 mg PO BID Qty: 60 11RF
aspirin 81 mg Tablet,Delayed Release (Dr/Ec)
81 mg PO DAILY
famotidine [Pepcid] 20 mg Tablet
20 mg PO BID
magnesium oxide 400 mg (241.3 mg magnesium) Tablet
400 mg PO NOON
potassium chloride 20 mEq tablet extended release
20 meq PO BID Qty: 60 0RF
furosemide [Lasix] 40 mg Tablet
60 mg PO MOWEFR
carvedilol [Coreg] 3.125 mg Tablet
6.25 mg PO BID
pravastatin 10 mg Tablet
10 mg PO MOWEFR
losartan 25 mg Tablet
12.5 mg PO QPM
furosemide 40 mg tablet
40 mg PO SUTUTHSA
acetaminophen [Tylenol] 325 mg Tablet
650 mg PO Q6HPRN PRN (Reason: MILD PAIN)
Referrals:
Chucky Pierre MD [Family Provider, Family Practice]
Interventions
Interventions:
*Risk Screen - Suicide Last Done: 01/10/25 00:13
*General Assessment Last Done: 01/10/25 00:13
*Neglect/Abuse Screening Last Done: 01/10/25 00:13
*ED COVID-19 Vaccine History Last Done: 01/10/25 00:16
ED- Cardiac Assessment Last Done: 01/10/25 01:24
Discharge Date and Time
Print Language: AMHARIC
[2025-01-10 01:09] LABS: NT-proBNP 5690 pg/ml; Troponin I 0.019 ng/ml
--- NOTE | 2025-01-10 01:19 | HPS.HSE ---
Family Physician
-
Family Physician: Chucky Pierre
Chief Complaint
-
Chest pain
History of Present Illness
This is a 79-year-old female with past medical history significant for proximal atrial fibrillation status post cardioversion, status post ablation on a year ago, hypertension, CHF with preserved EF, peripheral chill disease status post left femoral
endarterectomy and bilateral femoral endarterectomy who presents to the emergency department with worsening dyspnea on exertion and exertional chest pain over the last 2 weeks.
Patient was recently admitted to the hospital with recurrent atrial fibrillation for which she underwent treatment with diltiazem and spontaneous conversion to sinus rhythm. Since then the patient said that she is continue to have dyspnea on
exertion. She denies orthopnea or PND. She denies any lower extremity swelling. She states that despite diuretics she has not lost weight. She has also been decreasing her food intake and has not lost weight. She states she has had 1 month of
exertional chest pain. She reports chest pressure midsternally without associated nausea vomiting or diaphoresis. This is worse with just walking a flight of stairs or even walking across the room. He states at rest this resolves. She denies any
GERD like symptoms.
Patient also states that over the last week she has had episodes of palpitations and felt that her pulse was rapid when she checked manually and also with a pulse oximeter. He has been followed by cardiology and has had adjustments to her
medications. Her Coreg apparently has been increased from 6.25 to and additional 9.375 twice daily. Losartan was held for presumed low blood pressure at the cardiology clinic. She was supposed to increase her Lasix dose to 60 Wednesday through
Wednesday. However she did reduce the dose back to 40 mg daily. Despite this she had no improvement in her symptoms.
Today after doing some work in her home she had exertional dyspnea that was more severe and described as pressure again sitting on her chest with associated shortness of breath.
In the emergency department patient was afebrile, he was satting 98% on room air. Blood pressure was 155/100 with a pulse of 69 and a temp of 97.6. Patient
ECG shows sinus rhythm at rate of 78 without any ischemic findings. Troponin was 0.019. BNP was elevated at 5800.
Chest x-ray shows no acute infiltrates.
CBC was unremarked.
Electrolytes were all within the normal range. BUN/creatinine were normal for 10.1.3 with a glucose of 122.
Medical History
Past Medical History
Past Medical History: Reports Other
Additional Past Medical History:
Peripheral Arterial Disease s/p Bilateral Femoral Endarterectomy and Left Iliac Stent
Paroxysmal Atrial Fibrillation
Essential Hypertension
Hyperlipidemia
GERD
Anxiety
Hypomagnesemia
Chronic CHF
Past Surgical History: Reports Other
Additional Past Surgical History:
Status post MADELAINE/CV 03/09/2024 with recurrence 03/11/2024
Status post electrical ablation 03/28/2024 Dr. Aldana
Tubal Ligation
Cholecystectomy
Tonsillectomy
Melanoma Removal
Basal Cell Removal
Right Femoral Endarterectomy
Left Common Femoral Endarterectomy
Left External Iliac Stent
Social History
Tobacco: Former Smoker
Alcohol: None
Drug: None
Personal: Single
Employment: Retired
Family History
Family History: Other (Mother lymphoma age 69, father history A-fib, CABG x 3 vessel, femoropopliteal, alcohol abuse, lymphoma age 87, 1 brother alcohol abuse, 1 sister living age 86 COPD)
Allergies / Home Medications
Allergies reflects when Allergies were last updated in [facility].
Home Medications with original date entered in [facility]
Allergy/Medication List:
Allergies
Allergy/AdvReac Type Severity Reaction Status Date / Time
amlodipine Allergy Unknown Verified 12/23/24 13:24
amoxicillin Allergy Pt does Verified 12/23/24 13:24
not
belieive
this is an
allergy
benazepril Allergy Hives Verified 12/23/24 13:24
codeine Allergy Nausea / Verified 12/23/24 13:24
Vomiting
dextromethorphan Allergy Itching, Verified 12/23/24 13:24
[From NyQuil] migraine
doxylamine [From NyQuil] Allergy Itching, Verified 12/23/24 13:24
migraine
gatifloxacin [From Tequin] Allergy Shortness Verified 12/23/24 13:24
of Breath,
Hives
hydromorphone [From Dilaudid] Allergy headache Verified 12/23/24 13:24
pseudoephedrine [From NyQuil] Allergy Itching, Verified 12/23/24 13:24
migraine
red dye Allergy Hives Verified 12/23/24 13:24
[id number] Reductase Allergy Aches Verified 12/23/24 13:24
Inhibitor
trifluoperazine Allergy seizure - Verified 12/23/24 13:24
[From Stelazine] 1974
Home Medications
cholecalciferol (vitamin D3) 25 mcg (1,000 unit) tablet 1,000 units PO NOON Supplement 01/09/22
coenzyme Q10 200 mg capsule (Co Q-10) 200 mg PO NOON Supplement 01/09/22
cyanocobalamin (vitamin B-12) 1,000 mcg tablet 1,000 mcg PO NOON Supplement 01/09/22
diazepam 5 mg tablet 5 - 10 mg PO HSPRN PRN ANXIETY 01/09/22
flaxseed oil 1,000 mg capsule 1,000 mg PO NOON herbal supplement 01/09/22
ascorbic acid (vitamin C) 500 mg tablet (Vitamin C) 500 mg PO NOON Supplement 01/19/22
apixaban 5 mg tablet (Eliquis) 5 mg PO BID Blood clot prevention/tx #60 tabs 05/31/23
aspirin 81 mg tablet,delayed release 81 mg PO DAILY Blood Clot Prevention/Tx 03/10/24
famotidine 20 mg tablet (Pepcid) 20 mg PO BID 03/10/24
magnesium oxide 400 mg (241.3 mg magnesium) tablet 400 mg PO NOON Supplement 03/10/24
potassium chloride 20 mEq tablet,extended release 20 meq PO BID #60 tabs 03/14/24
acetaminophen 325 mg tablet (Tylenol) 650 mg PO Q6HPRN PRN MILD PAIN 12/23/24
carvedilol 3.125 mg tablet (Coreg) 6.25 mg PO BID 12/23/24
furosemide 40 mg tablet 40 mg PO SUTUTHSA 12/23/24
furosemide 40 mg tablet (Lasix) 60 mg PO MOWEFR 12/23/24
losartan 25 mg tablet 12.5 mg PO QPM 12/23/24
pravastatin 10 mg tablet 10 mg PO MOWEFR 12/23/24
Review of Systems
-
History Source: Patient and Family (Daughter at bedside)
A 12 point ROS was completed and negative except as noted: Yes
Constitutional: Reports Fatigue; Denies Fever or Chills
EENT: Denies Sore Throat, Mouth Pain or Runny Nose
Respiratory: Denies Cough or Trouble Breathing
Cardiac: Reports Chest Pain (Midsternal chest pressure) and Palpitations; Denies Diaphoresis or Syncope
Abdomen/GI: Denies Abdominal Pain, Nausea, Vomiting, Diarrhea or Constipated
: Denies Dysuria, Frequency, Flank Pain or Difficulty Voiding
Musculoskeletal: Denies Joint Pain or Edema
Skin: Denies Itching or Rash
Neurological: Reports Dizzy; Denies Headache
Endocrine: Reports No Symptoms
Hematologic/Lymphatic: Reports No Symptoms
Psych: Reports Calm
Physical Exam
Vital Signs
Vital Signs
Temp Pulse Resp BP Pulse Ox
97.6 F 69 19 155/100 93
01/10/25 00:13 01/10/25 00:30 01/10/25 00:30 01/10/25 00:13 01/10/25 00:30
Physical Exam
General: Conversant and Pain (Midsternal chest pressure fullness 5 out of 10); No Fever or Chills
HEENT: NormoCephalic, Anicteric, Moist mucous membranes, PERRLA, [place] Conjunctivae and No Ptosis
Respiratory: Clear; No Wheezes, Rales or Rhonchi
Cardiac: S1/S2 and Regular Rhythm; No Murmur, Rub or Gallop
Breast: Deferred by me
GI: Soft, Non Tender, Non Distended, Normal Bowel Sounds and No Hepatosplenomegaly
Musculoskeletal: No Clubbing, No Cyanosis and No Edema
Skin: Warm and Dry; No Rash or Jaundice
Neuro: AO x 3, No Motor Deficits, Nonfocal/grossly intact, Cranial Nerves Intact and No Sensory Deficits; No Slurred Speech, Facial Droop, Tremors or Sedated
Hematologic/Lymphatic: No Lymphadenopathy
Psych: Calm
Laboratory Results
-
01/10/25 00:32
01/10/25 00:32
Laboratory Results
Total Bilirubin 1.2 mg/dl (0.2-1.3) 01/10/25 00:32
AST 65 U/L (14-36) H 01/10/25 00:32
ALT 43 U/L (0-35) H 01/10/25 00:32
Alkaline Phosphatase 67 U/L (38-126) 01/10/25 00:32
Troponin I 0.019 ng/ml 01/10/25 00:32
Data Reviewed
-
Diagnostic Radiology: Image Personally Visualized and interpreted
Medical Tests (Nuc Med, Echo, EKG etc): Image Personally Visualized and interpreted
Lab Data: Labs Reviewed by me
Old Records: Reviewed
Impression/Plan
-
IMPRESSION:
79-year-old with history of peripheral arterial disease, proximal atrial fibrillation status post ablation, hypertension, anxiety who presents to the emergency department with acute on chronic dyspnea on exertion and the new exertional angina for at
least 1 month. Suspect the patient's symptoms of dyspnea is more related to exertional angina. He reports having chest pressure that is severe with ambulation and improved at rest. She has also been having intermittent episodes of atrial
fibrillation with scheduled ablation in 1 to 2 weeks. Up until about 4 days a she was having palpitations but has not had them since. This initially was suspicious for rate related worsening of CHF but now feel this is more likely angina.
PLAN:
Exertional dyspnea -suspect exertional angina with possible or ischemic cardiomyopathy developing versus cardiomyopathy from uncontrolled atrial fibrillation. Had pharmacological stress test in September which was inconclusive. Troponin 0.02, improved
compared to prior.
-Admit to telemetry observation
-Currently she is in sinus rhythm and has been so since
-Trend troponins
-She had a recent stress test which was negative, given risk factors and symptoms probably will need more invasive cardiac testing per cardiology
-No indication for heparin at this time. Continue daily aspirin and Eliquis
-If chest pressure recurs, nitroglycerin to see if it improves
-Continue Coreg
- Echo for wall motion abnormality
CHF -she appears euvolemic. There is slight cephalization of the pulmonary vessels and increased vascular markings. BNP is trending up but not markedly changed compared to prior. No crackles on exam except faintly at the right base. She feels
that she has had increased abdominal collection but no peripheral edema on exam and no ascites on exam.
- Continue Lasix 60 mg IV daily for now
- daily weights and i/os
- Continue Coreg 9.375 bid for now
- Hypertensive here > 100 diastolic, losartan held for unclear reasons. K within normal range. Creatinine is a little bit increased will continue the losartan for now
- give lasix 40 iv bid as trial, if no rapid improvement in dyspnea then likely ischemia related
- monitor on tele for afib burden
Atrial fibrillation -appears rate controlled with pending ablation
-Continue Coreg
-Continue Eliquis
-Check TSH
DVT prophylaxis - On Eliquis
Code Status - Full Code. As opposed to the prior living will she does want CPR, short term intubation/ventilator, invasive cardiac testing such as a cath and antibiotics if needed.
[2025-01-10] MEDS: LASIX 40 MG IV (02:07)
--- NOTE | 2025-01-10 03:46 | PTCARENOTE ---
Pt arrived from ED via stretcher to 3 west. Pt able to ambulate safely into bed [id number] with staff assistance. Pt oriented to room, call samaniego within reach. Able to make needs known. Will continue to monitor pt.
--- NOTE | 2025-01-10 07:34 | CON.CAR ---
Addendum entered and electronically signed by Jose M Aguilar DO 01/10/25 11:40:
I saw and examined the patient.
The Glass Calibrator's note was reviewed and I agree with the note.
Comment:
Plan:
Recurrent AFib with HF and she is scheduled for outpt EP eval in January 2025 and for repeat PVI in January 2025.
In the interim with symptomatic AFib, discussed with EP, reasonable to consider Tikosyn load while she is admitted for HF
She is agreeable after much discussion of the risks and benefits of Tikosyn. She understands that she may ultimately be taken off Tikosyn in the future based on her tolerance and response to PVI. She declines repeat consideration for amiodarone due
to concerns about potential toxicities.
She remains compliant with Eliquis
Cont IV diuresis
Monitor daily wts, I and Os and cr.
Pt to be transferred to IVU for Tikosyn loading.
Recent cardiac testing reviewed including:
Lexiscan nuclear stress September 2024: Probably normal study. There is a predominantly fixed small, mild defect in the apical inferior and mid inferior segments most consistent with bowel attenuation noted in this region. No significant ischemia is
seen. Systolic function is mildly reduced. The ejection fraction is 42%.
Echo September 2024: EF 50 to 54%, normal RV size and function, mild MR, mild TR, no pericardial effusion.
Echo January 10 pending.
Original Note:
Consultation
Consultation Request
Date/Time Consultation Requested: 01/10/2025 at 0327
Date/Time Consultation Performed: 01/10/2025 at 0954
Requesting Provider: Dr. Dahl
Performing Provider: Dr. Aguilar
Reason for Consultation: Acute HF, palpitations
Medical History
-
History of Present Illness:
Patient came to [facility] ER yesterday afternoon with chest pain and SOB and was admitted with acute HF and cardiology is consulted. Patient was just admitted for acute HFpEF 12/23/2024 until 12/25/2024 and during that admission was noted to have a
symptomatic recurrence of atrial fibrillation and then spontaneous conversion to sinus rhythm. Patient has a longstanding history of atrial arrhythmia and had rapid recurrence of A-fib following successful cardioversion back in 03/2024 leading to
amiodarone addition as a bridge to ablation therapy which was successfully performed with a PVI on 03/28/2024. Patient seemed to be doing well until she had a symptomatic recurrence of atrial arrhythmia in the form of A. tach/typical atrial flutter
resulting in an acute HFpEF and admission 12/23/2024. During that admission patient then spontaneously converted to SR and was IV diuresed. Patient was seen in the cardiology office for follow-up on 01/02/2025 was found to be in A-fib. Patient's
Coreg dose was increased and she was set up with EP appointment and preliminarily scheduled for repeat PVI 02/26/2025. Patient says that she has continued to have intermittent palpitations and feels that her blood pressure is up and down with this.
With all of this she gets very symptoms including palpitations shortness of breath and chest pressure. Patient came to the ER with the symptoms and was found to be in SR and no obvious recurrence of atrial arrhythmia on telemetry monitoring thus
far.
PMH:
Chronic HFpEF
Paroxysmal Afib
s/p successful MADELAINE/CV 03/09/24 with recurrence 03/11/24
Briefly on amiodarone therapy as a bridge to PVI
s/p PVI 03/28/2024
Recurrence of Atach/typical flutter with RVR and then spontaneous conversion to SR 11/2024
Recurrence of A-fib at cardiology office visit 01/02/2025
OAC with eliquis
Multiple medication intolerances
PAD
s/p left femoral endarterectomy 2021
right subclavian stenosis
Hyperlipidemia with statin and Zetia intolerance
HTN
Past Medical History
Past Medical History: Other
Past Surgical History: Cholecystectomy, Tonsilectomy and Other (Left femoral endarterectomy 03/2022)
Social History
Tobacco: Former Smoker
Alcohol: None
Drug: None
Personal:
Living: With Family
Family History
Family History: Other (father with CAD s/p CABG and Afib, daughter from multiple myeloma in 2020)
Allergies / Home Medications
Allergy/AdvReac Type Severity Reaction Status Date / Time
amlodipine Allergy Unknown Verified 01/10/25 00:17
amoxicillin Allergy Pt does Verified 01/10/25 00:17
not
belieive
this is an
allergy
benazepril Allergy Hives Verified 01/10/25 00:17
codeine Allergy Nausea / Verified 01/10/25 00:17
Vomiting
dextromethorphan (From Allergy Itching, Verified 01/10/25 00:17
NyQuil) migraine
doxylamine (From NyQuil) Allergy Itching, Verified 01/10/25 00:17
migraine
gatifloxacin (From Tequin) Allergy Shortness Verified 01/10/25 00:17
of Breath,
Hives
hydromorphone (From Dilaudid) Allergy headache Verified 01/10/25 00:17
pseudoephedrine (From NyQuil) Allergy Itching, Verified 01/10/25 00:17
migraine
red dye Allergy Hives Verified 01/10/25 00:17
[id number]-[id number]-[id number] Reductase Allergy Aches Verified 01/10/25 00:17
Inhibitor
trifluoperazine (From Allergy seizure - Verified 01/10/25 00:17
Stelazine) 1974
�Medication �Instructions �Recorded �Confirmed �Type
cholecalciferol (vitamin D3) 25 1,000 units PO NOON Supplement 01/09/22 01/10/25 History
mcg (1,000 unit) tablet
coenzyme Q10 200 mg capsule (Co 200 mg PO NOON Supplement 01/09/22 01/10/25 History
Q-10)
cyanocobalamin (vitamin B-12) 1,000 mcg PO NOON Supplement 01/09/22 01/10/25 History
1,000 mcg tablet
diazepam 5 mg tablet 5 - 10 mg PO HSPRN PRN ANXIETY 01/09/22 01/10/25 History
flaxseed oil 1,000 mg capsule 1,000 mg PO NOON herbal supplement 01/09/22 01/10/25 History
ascorbic acid (vitamin C) 500 mg 500 mg PO NOON Supplement 01/19/22 01/10/25 History
tablet (Vitamin C)
apixaban 5 mg tablet (Eliquis) 5 mg PO BID Blood clot 05/31/23 01/10/25 Rx
prevention/tx #60 tabs
aspirin 81 mg tablet,delayed 81 mg PO DAILY Blood Clot 03/10/24 01/10/25 History
release Prevention/Tx
famotidine 20 mg tablet (Pepcid) 20 mg PO BID 03/10/24 01/10/25 History
magnesium oxide 400 mg (241.3 mg 250 mg PO NOON Supplement 03/10/24 01/10/25 History
magnesium) tablet
potassium chloride 20 mEq 20 meq PO BID #60 tabs 03/14/24 01/10/25 Rx
tablet,extended release
acetaminophen 325 mg tablet 650 mg PO Q6HPRN PRN MILD PAIN 12/23/24 01/10/25 History
(Tylenol)
carvedilol 3.125 mg tablet (Coreg) 9.375 mg PO BID 12/23/24 01/10/25 History
furosemide 40 mg tablet 40 mg PO SUTUTHSA 12/23/24 01/10/25 History
furosemide 40 mg tablet (Lasix) 60 mg PO MOWEFR 12/23/24 01/10/25 History
losartan 25 mg tablet 12.5 mg PO QPM 12/23/24 01/10/25 History
pravastatin 10 mg tablet 10 mg PO MOWEFR 12/23/24 01/10/25 History
Review of Systems
-
History Source: Patient
All other systems: Negative unless noted
Physical Exam
Vital Signs
Temp Pulse Resp BP Pulse Ox
97.6 F 62 18 122/62 93
01/10/25 07:00 01/10/25 07:00 01/10/25 07:00 01/10/25 07:00 01/10/25 07:00
GEN: No distress, awake, alert and oriented x3
HEENT: EOMI, MMM
LUNGS: CTA B/L, no wheezes or rales
CV: Reg, S1/S2, no murmur
ABD: soft, BS+, NT, ND
EXT: No clubbing, cyanosis, lesions or edema B/L
NEURO: Gross non-focal
SKIN: Warm, dry and pink. No rash
Lab Results
01/10/25 00:32
Troponin I 0.019 ng/ml 01/10/25 00:32
Gdd-F-Mukklajbfad Pept 5690 pg/ml 01/10/25 00:32
Impression / Plan
-
Primary Protection Consultant: Dr. Dr. Nick
Impression:
Admitted with acute HFpEF and palpitations 01/09/2025
Recent admission for acute HFpEF and A-fib/flutter 12/23/2024 until 12/25/2024
Acute HFpEF
Hypokalemia, of note had hyperkalemia during admission 12/23/2024
Chest pain
Paroxysmal Afib
s/p successful MADELAINE/CV 03/09/24 with recurrence 03/11/24
Briefly on amiodarone therapy as a bridge to PVI
s/p PVI 03/28/2024
Recurrence of Atach/typical flutter with RVR and then spontaneous conversion to SR 11/2024
Recurrence of A-fib at cardiology office visit 01/02/2025
OAC with eliquis
Multiple medication intolerances
PAD
s/p left femoral endarterectomy 2021
right subclavian stenosis
Hyperlipidemia with statin and Zetia intolerance
HTN
Lexiscan nuclear stress September 2024: Probably normal study. There is a predominantly fixed small, mild defect in the apical inferior and mid inferior segments most consistent with bowel attenuation noted in this region. No significant ischemia is
seen. Systolic function is mildly reduced. The ejection fraction is 42%. Compared with the study performed on 01/02/2022. There is decreased left ventricular ejection fraction from 61% to 42%.
ECHO 01/28/24: EF 61%, no regional wall motion abnormalities noted, mild concentric LVH, mild MR, mild TR, PAP 25-30 mmHg
Echo 10/02/24: EF 50 to 54%, normal RV size and function, mild MR, mild TR, no pericardial effusion.
Echo 01/10/2025: Report pending
Plan:
-Patient came to [facility] ER yesterday afternoon with chest pain and SOB and was admitted with acute HF and cardiology is consulted. Patient was just admitted for acute HFpEF 12/23/2024 until 12/25/2024 and during that admission was noted to have a
symptomatic recurrence of atrial fibrillation and then spontaneous conversion to sinus rhythm. Patient has a longstanding history of atrial arrhythmia and had rapid recurrence of A-fib following successful cardioversion back in 03/2024 leading to
amiodarone addition as a bridge to ablation therapy which was successfully performed with a PVI on 03/28/2024. Patient seemed to be doing well until she had a symptomatic recurrence of atrial arrhythmia in the form of A. tach/typical atrial flutter
resulting in an acute HFpEF and admission 12/23/2024. During that admission patient then spontaneously converted to SR and was IV diuresed. Patient was seen in the cardiology office for follow-up on 01/02/2025 was found to be in A-fib. Patient's
Coreg dose was increased and she was set up with EP appointment and preliminarily scheduled for repeat PVI 02/26/2025. Patient says that she has continued to have intermittent palpitations and feels that her blood pressure is up and down with this.
With all of this she gets very symptoms including palpitations shortness of breath and chest pressure. Patient came to the ER with the symptoms and was found to be in SR and no obvious recurrence of atrial arrhythmia on telemetry monitoring thus
far.
-ECG and telemetry reviewed by me are SR without acute ST changes and no evidence of arrhythmia
-Initial troponin 0.019 and second troponin was undetectable with a third troponin pending. Patient had troponin elevation up to 0.051 during her last admission. Last ischemic evaluation noted above and elevated troponin last admission was felt to
be due to acute HF. Symptoms of 'chest pain' sound more like CARMONA. Pending echo and additional troponin will make further determination, but at this point no evidence of ACS and no acute indication for cardiac catheterization.
-CXR without acute HF, but proBNP is higher than previous and overall patient feels bloated. Patient reports decreased diuretic effect with Lasix p.o. dosing at home over the last several weeks. Agree with Lasix 60 mg IV daily for now and will
need to establish a new dry weight at time of discharge
-EF previously preserved at 50 to 54%, but echo pending as noted above
-Outpatient dose of Coreg 9.375 mg BID has been continued and overall BP has been normotensive to hypertensive so could attempt to increase further to 12.5 mg BID
-Outpatient dose of losartan was stopped at cardiology office visit on 01/02/2025 due to hypotension with BP 104/60 in the setting of A-fib
-Patient with known paroxysmal atrial arrhythmias that are highly symptomatic for her. Atrial arrhythmia outlined in HPI as above, but currently awaiting EP office visit on 02/12/2025 and is tentatively scheduled for repeat PVI on 02/26/2025.
Patient has been in SR this admission, but would recommend initiating AAD for symptom control leading up to ablation, she previously tolerated amiodarone as a bridge to her ablation 03/2024. Patient is not sure she wants to restart amiodarone so we
did discuss Tikosyn. Patient feels that she has a number of dye allergies and she is not sure that she wants to try a different medication. Patient is going to consider her options and let us know if she would like to restart amiodarone versus
Tikosyn this admission
-Outpatient dose of Eliquis 5 mg BID has been continued
-KCl 40 mEq given this morning by hospitalist attending
[2025-01-10 08:02] LABS: Troponin I < 0.012 ng/ml
[2025-01-10 08:10] LABS: Blood Urea Nitrogen 26 mg/dl (7-17); Calcium 8.9 mg/dl (8.4-10.2); Carbon Dioxide 23 mmol/L (22-30); Chloride 107 mmol/L (98-107); Estimated Creatinine Clearance 44 ml/min; Glucose 88 mg/dl (70-99); Magnesium 2.1 mg/dl (1.6-2.3); Potassium 3.4 mmol/L (3.5-5.1); Sodium 142 mmol/L (135-145); eGFR 51.75
[2025-01-10] MEDS: ASPIR LOW (ENTERIC COATED) 81 MG PO (08:23)
[2025-01-10] MEDS: ELIQUIS 5 MG PO ×2 (08:23→19:39)
[2025-01-10] MEDS: PEPCID 20 MG PO ×2 (08:23→19:39)
[2025-01-10] MEDS: COREG 9.375 MG PO ×2 (08:23→19:39)
[2025-01-10] MEDS: LASIX 60 MG IV (08:24)
[2025-01-10 08:37] LABS: TSH Reflex To Free T4 1.35 uIU/ml (0.47-4.68)
--- NOTE | 2025-01-10 10:24 | W.PN.HOSP.TC ---
Today's Communication/Plan
-
see A/P
Assessment / Plan
Assessment / Plan
HPI: 79-year-old F with history of peripheral arterial disease, paroxysmal atrial fibrillation status post ablation, hypertension, anxiety; who presented with acute on chronic dyspnea on exertion and the new exertional angina for at least 1 month.
Suspect the patient's symptoms of dyspnea is more related to exertional angina. She reports having chest pressure that is severe with ambulation and improved at rest. She has also been having intermittent episodes of atrial fibrillation with
scheduled ablation in 1 to 2 weeks (was still experiencing palpitations up until about 4 days TAR MAN but has not felt since).
A/P:
# Exertional dyspnea, suspect exertional angina with possible developing ischemic cardiomyopathy versus cardiomyopathy from uncontrolled atrial fibrillation.
Had pharmacological stress test in September which was inconclusive.
Troponin unrevealing
No indication for heparin drip at this time.
Continue daily aspirin and Eliquis. Continue Coreg
Check Echo for wall motion abnormality
Card CS
# Possible Acute on chronic CHF
There is slight cephalization of the pulmonary vessels and increased vascular markings.
BNP 5690 (slightly higher than baseline)
Cont Lasix 60 mg IV daily for now (TAR MAN alternating 40 mg and 60 mg doses)
Follow daily weights and i/os
Cont TAR MAN Coreg 9.375 bid for now
Cont TAR MAN Losartan 12.5 mg
Card CS
# Mildly elevated LFT likely hepatic congestion
Monitor LFT
# Hypokalemia
replete
# Paroxysmal Atrial fibrillation
appears rate controlled with pending ablation
Continue Coreg
Continue Eliquis
TSH 1.35
# CKD stage 3
DVT prophylaxis - On Eliquis
Code Status - Full Code.
Anticipated Discharge: > 48 hours
Subjective/Interval History
-
Date of Service: January 10, 2025
Objective Data
-
Labs:
Laboratory Results
01/10/25 01/10/25
00:32 07:21
WBC 4.8
Hgb 13.6
Hct 39.9
Plt Count 165
Sodium 141 142
Potassium 4.2 3.4 L
Chloride 106 107
Carbon Dioxide 24 23
BUN 28 H 26 H
Creatinine 1.3 H 1.1 H
Glucose 122 H 88
Calcium 9.3 8.9
Total Bilirubin 1.2
AST 65 H
ALT 43 H
Alkaline Phosphatase 67
Vital Signs:
Vital Signs
Temp Pulse Resp BP Pulse Ox
36.4 C 62 18 122/62 93
01/10/25 07:00 01/10/25 08:24 01/10/25 07:00 01/10/25 08:24 01/10/25 08:59
Review of Systems
-
History Source: Patient
Respiratory: Reports Trouble Breathing (CARMONA)
Cardiac: Reports Chest Pain (with exertion)
Physical Exam
-
General: Well Developed, Well Nourished, No Apparent Distress, Comfortable and Conversant
HEENT: Normocephalic and Atraumatic; Negative Oxygen
Respiratory: Clear to Auscultation, Crackles (very mild L base ) and Non Labored Respirations; Negative Accessory Resp Muscle Use
Cardiac: Regular Rhythm and S1/S2
GI: Soft, Nontender and Nondistended
Musculoskeletal: No Edema
Neuro: Awake and Alert
Psych: Calm and Intact Judgement/Insight
Data Reviewed
-
Diagnostic Radiology: Image personally visualized and interpreted and Report Reviewed by me
Labs: Labs Reviewed by me
[2025-01-10] MEDS: KCL 40 MEQ PO (10:45)
--- NOTE | 2025-01-10 12:00 | W.CARD.TIKOS ---
Initiate Tikosyn
-
I verify that the patient has not taken any verapamil (Isoptin/Calan), ketoconazole (Nizoral), cimetidine (Tagamet), trimethoprim (Trimpex), trimethoprim/sulfamethoxazole (Bactrim), megesterol (Megace), prochlorperazine (Compazine),
hydrochlorothiazide (HCTZ), dolutegravir (Tivicay) or any Class I or Class III anti-arrhythmic within the last three days
AND
I verify that the patient has not taken amiodarone within the last THREE months, or that the patient's amiodarone plasma concentration is <0.3 mcg/mL.
Creatinine 1.1 mg/dL (0.6-1.0) H 01/10/25 07:21
Estimated Creat Clear 44 ml/min 01/10/25 07:21
CrCl 51 calculated by me
Does patient have a Ventricular Conduction Abnormality: No
I have assessed the baseline QTc interval (using QT for heart rate less than 60 bpm) and deemed the patient is appropriate for Dofetilide therapy. I understand that Tikosyn is contraindicated if the QTc is >440msec (500msec in patients with
ventricular conduction abnormalities).
Baseline QTc (in msec): 437
Ordering Physician: Jose M Aguilar
[2025-01-10] MEDS: TIKOSYN 250 MCG PO (12:26)
[2025-01-10 12:30] LABS: Troponin I 0.014 ng/ml
--- NOTE | 2025-01-10 14:23 | CM ---
Pricing on Dofetilide through the patient's PP, [facility], ID# [id number], is covered at $10.25 for a 30 day supply. CM to call to confirm before discharge that Dofetilide is available at the patient's pharmacy. Patient will need a 3 day supply to go
home.
--- NOTE | 2025-01-10 15:24 | CM ---
Chart reviewed. Patient is independent of ADLS, lives with her in a [address], 1 DARRYN, 0 DME. Plan is for the patient to return home. CM to follow
--- NOTE | 2025-01-10 17:04 | W.PN.UPDATE ---
Update Note
Progress Note Update
ECG 2 hours after first dose of Tikosyn 250 mcg reviewed by me and the QTc has prolonged to 513 ms. We will decrease the dose to 125 mcg and follow-up with ECG.
[2025-01-10] MEDS: TYLENOL 650 MG PO (17:14)
[2025-01-10] MEDS: COZAAR 12.5 MG PO (17:15)
--- NOTE | 2025-01-10 18:00 | PTCARENOTE ---
Pt received from
--- NOTE | 2025-01-10 18:00 | PTCARENOTE ---
Pt received at 1215 from [facility] to start Tikosyn. Ecg completed and 1st dose given as ordered. QTC 2 hours post dose was 513 and Nereyda Rocha PAC notified of result. Pt c/o of a headache and medicated with Tylenol as ordered with relief. No other c/o
offered. Pt oob ad karina in the room. Denies any chest pain or sob.
[2025-01-10 19:43] LABS: Troponin I < 0.012 ng/ml
[2025-01-11] VITALS (11 sets, daily range): BP systolic 108–153; BP diastolic 50–65; PULSE 50; O2SAT 96; BMI 29.1
[2025-01-11] MEDS: TIKOSYN 125 MCG PO ×3 (00:03→22:23)
[2025-01-11 02:40] LABS: Hematocrit 37.8 % (37.0-47.0); Hemoglobin 13.4 g/dL (12.0-16.0); Mean Corp Hgb Conc. 35.4 g/dL (33.0-37.0); Mean Corpuscular Hgb 31.2 pg (27.0-31.0); Mean Corpuscular Volume 88.1 fL (81.0-99.0); Mean Platelet Volume 10.7 fL (7.4-10.4); Platelet Count 150 10^3/uL (130-400); Red Blood Cell Count 4.29 10^6/uL (4.20-5.40); Red Cell Dist. Width 13.2 % (11.5-14.5); White Blood Cell Count 4.2 10^3/uL (4.8-10.8)
--- NOTE | 2025-01-11 02:45 | PTCARENOTE ---
QTc post Tikosyn dose #2 468 ms. Pt.'s HR prior to administering was high 40's-50's resting and 60's-70's with activity; notified Dr. Villatoro who said ok to proceed with Tikosyn. Pt. currently running 40's-60's on the monitor (sinus).
[2025-01-11 03:09] LABS: ALT (SGPT) 39 U/L (0-35); AST (SGOT) 28 U/L (14-36); Albumin 4.1 g/dl (3.5-5.0); Alkaline Phosphatase 60 U/L (38-126); Blood Urea Nitrogen 24 mg/dl (7-17); Calcium 9.1 mg/dl (8.4-10.2); Carbon Dioxide 25 mmol/L (22-30); Chloride 105 mmol/L (98-107); Direct Bilirubin 0.3 mg/dl (0.0-0.4); Estimated Creatinine Clearance 54 ml/min; Glucose 86 mg/dl (70-99); Magnesium 2.1 mg/dl (1.6-2.3); Potassium 3.4 mmol/L (3.5-5.1); Sodium 140 mmol/L (135-145); Total Bilirubin 1.4 mg/dl (0.2-1.3); Total Protein 6.6 g/dl (6.3-8.2); eGFR > 60.00
[2025-01-11] MEDS: KCL 40 MEQ PO (04:36)
[2025-01-11] MEDS: LASIX 60 MG IV (07:09)
[2025-01-11] MEDS: ELIQUIS 5 MG PO ×2 (07:09→19:23)
[2025-01-11] MEDS: PEPCID 20 MG PO (07:09)
[2025-01-11] MEDS: ASPIR LOW (ENTERIC COATED) 81 MG PO (07:09)
--- NOTE | 2025-01-11 08:18 | W.PN.HOSP.TC ---
Today's Communication/Plan
-
see AP
Assessment / Plan
Assessment / Plan
HPI: 79-year-old F with history of peripheral arterial disease, paroxysmal atrial fibrillation status post ablation, hypertension, anxiety; who presented with acute on chronic dyspnea on exertion and the new exertional angina for at least 1 month.
Suspect the patient's symptoms of dyspnea is more related to exertional angina. She reports having chest pressure that is severe with ambulation and improved at rest. She has also been having intermittent episodes of atrial fibrillation with
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
A/P:
# Exertional dyspnea, suspect 2/2 uncontrolled atrial fibrillation.
Had pharmacological stress test in September which was inconclusive.
Troponin unrevealing
No indication for heparin drip at this time.
Continue daily aspirin and Eliquis. Continue Coreg
Echo this admission unrevealing: EF 50-55%. Mild mitral regurgitation. Mild tricuspid regurgitation. Compared to the previous echo September 2024, there is no significant change.
Card on board
# Recurrent Paroxysmal Atrial fibrillation
outpt EP eval in January 2025 and for repeat PVI in January 2025.
Continue Coreg
Continue Eliquis
Started Tikosyn load per card
TSH 1.35
# Acute on chronic CHF
There is slight cephalization of the pulmonary vessels and increased vascular markings.
BNP 5690 (slightly higher than baseline)
Cont Lasix 60 mg IV daily for now (TANGLED YARN SPOOL STRAIGHTENER alternating 40 mg and 60 mg doses)
Follow daily weights and i/os
Cont TANGLED Y[employer] SPO[employer] STRAIGHTENER Coreg 9.375 bid for now
Cont TANGLED YARN SPOOL STRAIGHTENER Losartan 12.5 mg
Card on board
# Mildly elevated LFT likely hepatic congestion
Monitor LFT, improving
# Hypokalemia
replete
# CKD stage 3
DVT prophylaxis - On Eliquis
Code Status - Full Code.
Anticipated Discharge: 24 - 48 hours
Subjective/Interval History
-
Date of Service: January 11, 2025
Objective Data
-
Labs:
Laboratory Results
01/11/25
02:17
WBC 4.2 L
Hgb 13.4
Hct 37.8
Plt Count 150
Sodium 140
Potassium 3.4 L
Chloride 105
Carbon Dioxide 25
BUN 24 H
Creatinine 0.9
Glucose 86
Calcium 9.1
Total Bilirubin 1.4 H
AST 28
ALT 39 H
Alkaline Phosphatase 60
Vital Signs:
Vital Signs
Temp Pulse Resp BP Pulse Ox
36.6 C 50 20 131/55 97
01/11/25 06:47 01/11/25 07:00 01/11/25 06:47 01/11/25 06:48 01/11/25 07:59
I&O
01/10/25 01/11/25 01/12/25
06:59 06:59 06:59
Intake Total 480 / 480
Balance 480 / 480
Review of Systems
-
History Source: Patient
Respiratory: Denies Trouble Breathing (resolved )
Cardiac: Denies Chest Pain
Physical Exam
-
General: Well Developed, Well Nourished, No Apparent Distress, Comfortable and Conversant
HEENT: Normocephalic and Atraumatic; Negative Oxygen
Respiratory: Clear to Auscultation, Crackles (very mild L base ) and Non Labored Respirations; Negative Accessory Resp Muscle Use
Cardiac: Regular Rhythm and S1/S2
GI: Soft, Nontender and Nondistended
Musculoskeletal: No Edema
Neuro: Awake and Alert
Psych: Calm and Intact Judgement/Insight
Data Reviewed
-
Diagnostic Radiology: Image personally visualized and interpreted and Report Reviewed by me
Labs: Labs Reviewed by me
[2025-01-11] MEDS: KCL 20 MEQ PO (08:54)
[2025-01-11] MEDS: COREG PO (08:54)
--- NOTE | 2025-01-11 13:10 | W.PN.CARDCBS ---
Addendum entered and electronically signed by Raul Owens MD 01/11/25 18:05:
79-year-old woman admitted 01/09/2025 with acute heart failure and preserved ejection fraction, previously admitted December 23 for the same. Known history of paroxysmal atrial fibrillation. She had a PVI in March 2020 for and posthospital follow-up on
January 02 A-fib had recurred and pulmonary vein isolation scheduled for February 26. Currently undergoing dofetilide loading
PMH: PAF, with PVI March 2024, recurrent atrial tach, atrial flutter November 2024 with recurrence of a fib January 02, 2025, PAD with left femoral endarterectomy and right subclavian stenosis, hypertension, hyperlipidemia
Current medications: Apixaban 5 mg twice daily, aspirin 81 mg a day, carvedilol 9.375 twice daily, losartan 12.5 mg daily, furosemide 60 mg IV daily, dofetilide 125 mcg twice daily, famotidine, MiraLAX
108/50, pulse 50, respirations 20, afebrile, weight is 78.1 kg down 1.4 kg, admission weight was 81.4 kg, head neck exam unremarkable, lungs are clear card cardiac exam notable for regular rate rhythm without murmurs, abdomen benign extremities some
nonpitting edema
ECG today sinus bradycardia, QTc is 443 ms
Chest x-ray yesterday: Cardiomegaly, COPD
Hemoglobin 13.4, platelets 150, BUN/creatinine 24 and 0.9, ALT 39, troponin undetectable
Impression:
See below as per Nereyda Rocha. Reviewed in detail and agree, unless specifically noted below.
Plan:
Overall, her heart failure status looks improved though she still complains of some abdominal bloating. Continue IV furosemide for now.
Will add spironolactone 12.5 mg daily. For HFpEF. This should help with her hypokalemia.
Would consider SGLT2 antagonist. Will ask case management to headley.
QT interval is good. She is tolerating dofetilide. However she is somewhat bradycardic. Will reduce carvedilol to 6.25 mg twice daily.
If volume status adequate she could be discharged tomorrow after dofetilide dose provided QT interval remains good.
Original Note:
Today's Communication / Plan
-
Cont Tikosyn 125 mcg q 12 hours, QTc stable thus far
Cont Lasix 60 mg IV daily, consider switching to torsemide upon d/c due to reported ineffectiveness of Lasix PO prior to admission
Impression / Plan
-
PCP: Dr. Pierre
Primary Manager Report: Dr. Dr. Nick
Impression:
Admitted with acute HFpEF and palpitations 01/09/2025
Recent admission for acute HFpEF and A-fib/flutter 12/23/2024 until 12/25/2024
Acute HFpEF
Hypokalemia, of note had hyperkalemia during admission 12/23/2024
Chest pain
Paroxysmal Afib
s/p successful MADELAINE/CV 03/09/24 with recurrence 03/11/24
Briefly on amiodarone therapy as a bridge to PVI
s/p PVI 03/28/2024
Recurrence of Atach/typical flutter with RVR and then spontaneous conversion to SR 11/2024
Recurrence of A-fib at cardiology office visit 01/02/2025
Tikosyn load starting 01/10/25
OAC with Eliquis
Multiple medication intolerances
PAD
s/p left femoral endarterectomy 2021
right subclavian stenosis
Hyperlipidemia with statin and Zetia intolerance
HTN
Lexiscan nuclear stress September 2024: Probably normal study. There is a predominantly fixed small, mild defect in the apical inferior and mid inferior segments most consistent with bowel attenuation noted in this region. No significant ischemia is
seen. Systolic function is mildly reduced. The ejection fraction is 42%. Compared with the study performed on 01/02/2022. There is decreased left ventricular ejection fraction from 61% to 42%.
ECHO 01/28/24: EF 61%, no regional wall motion abnormalities noted, mild concentric LVH, mild MR, mild TR, PAP 25-30 mmHg
Echo 10/02/24: EF 50 to 54%, normal RV size and function, mild MR, mild TR, no pericardial effusion.
Echo 01/10/2025: EF 50 to 55%, mild MR, mild TR
Plan:
-ECG 2 hours after second dose of Tikosyn 125 mcg reviewed by me on 01/11/2025 AM and patient is in sinus bradycardia with QTc 460 ms. Third dose of Tikosyn 125 mcg was given and I await that EKG. Fifth dose is scheduled for 01/12/2025 AM and if
patient remains in SR with stable QTc then she can be discharged to home on Tikosyn 125 mcg every 12 hours
-Telemetry reviewed by me and patient is SB
-Patient is scheduled to see Dr. Nick in the office on 02/12/2025 and is tentatively scheduled for ablation 02/18/2025. We discussed using Tikosyn as a bridge to ablation therapy and that it may even be continued for period of time beyond ablation.
-Outpatient dose of Eliquis 5 mg BID (age 79, Cre 0.9, wt 78 kg) has been continued
-Weight is down 5 lbs overnight and is lower than any previous dry weight we have on record at 172 lbs.
-Continue Lasix 60 mg IV daily. Patient was taking Lasix 60 mg MWF and 40 mg all other days prior to admission and reports decreased effectiveness. Would consider transition to torsemide PO at time of discharge.
-EF preserved to 50 to 55% with only mild valve disease by echo 01/10/2025, study reviewed and summarized above by me.
-Outpatient dose of Coreg 9.375 mg BID has been continued and overall BP has been normotensive to hypertensive, but intermittent SBP so will not increase dose. Hold parameters placed for HR <50.
-Outpatient dose of losartan 12.5 mg daily has been continued, of note this dose had been stopped at cardiology office visit to allow for up titration of Coreg, but this admission was HTN allowing for restart of losartan.
-Troponin levels serially normal. Patient had troponin elevation up to 0.051 during her last admission. Last ischemic evaluation noted above and elevated troponin last admission was felt to be due to acute HF.
HPI: Patient came to [facility] ER yesterday afternoon with chest pain and SOB and was admitted with acute HF and cardiology is consulted. Patient was just admitted for acute HFpEF 12/23/2024 until 12/25/2024 and during that admission was noted to have a
symptomatic recurrence of atrial fibrillation and then spontaneous conversion to sinus rhythm. Patient has a longstanding history of atrial arrhythmia and had rapid recurrence of A-fib following successful cardioversion back in 03/2024 leading to
amiodarone addition as a bridge to ablation therapy which was successfully performed with a PVI on 03/28/2024. Patient seemed to be doing well until she had a symptomatic recurrence of atrial arrhythmia in the form of A. tach/typical atrial flutter
resulting in an acute HFpEF and admission 12/23/2024. During that admission patient then spontaneously converted to SR and was IV diuresed. Patient was seen in the cardiology office for follow-up on 01/02/2025 was found to be in A-fib. Patient's
Coreg dose was increased and she was set up with EP appointment and preliminarily scheduled for repeat PVI 02/26/2025. Patient says that she has continued to have intermittent palpitations and feels that her blood pressure is up and down with this.
With all of this she gets very symptoms including palpitations shortness of breath and chest pressure. Patient came to the ER with the symptoms and was found to be in SR and no obvious recurrence of atrial arrhythmia on telemetry monitoring thus
far.
Progress Note - Manager Report
Subjective
Date of Service: January 11, 2025
She feels well, no palpitations
Objective
Labs:
01/11/25 02:17
01/11/25 02:17
Labs
Hgb 13.4 g/dL (12.0-16.0) 01/11/25 02:17
Hct 37.8 % (37.0-47.0) 01/11/25 02:17
Plt Count 150 10^3/uL (130-400) 01/11/25 02:17
Sodium 140 mmol/L (135-145) 01/11/25 02:17
Potassium 3.4 mmol/L (3.5-5.1) L 01/11/25 02:17
BUN 24 mg/dl (7-17) H 01/11/25 02:17
Creatinine 0.9 mg/dL (0.6-1.0) 01/11/25 02:17
Glucose 86 mg/dl (70-99) 01/11/25 02:17
Troponins
01/10/25 01/10/25 01/10/25
00:32 07:21 11:38
Troponin I 0.019 < 0.012 D 0.014
01/10/25
18:46
Troponin I < 0.012
Vital Signs and I&O:
Vital Signs
Temp Pulse Resp BP Pulse Ox
97.8 F 50 20 131/55 95
01/11/25 10:53 01/11/25 07:00 01/11/25 10:53 01/11/25 06:48 01/11/25 10:53
Vital Signs
Temp Pulse Resp BP Pulse Ox
97.8 F 50 20 131/55 95
01/11/25 10:53 01/11/25 07:00 01/11/25 10:53 01/11/25 06:48 01/11/25 10:53
Intake & Output
01/09/25 01/10/25 01/11/25 01/12/25
06:59 06:59 06:59 06:59
Intake Total 480 / 480
Balance 480 / 480
Physical Exam
Physical Exam
GEN: NAD. AAOx3
LUNGS: RA
CV: SR on tele
[2025-01-11] MEDS: MIRALAX 17 GRAMS PO (13:48)
--- NOTE | 2025-01-11 14:48 | SUR.OPER ---
Pt received this am with no c/o of any chest pain or sob. OOB ad karina, gait steady. SB - SR, rate in the 40's to 60's. Held am Coreg dose.
--- NOTE | 2025-01-11 15:27 | CM ---
Chart reviewed. Patient is independent of ADLS, lives with her in a 1 [address], 1 DARRYN, 0 DME. Plan is for the patient to return home. CM to confirm Dofetilide dosing in the AM. Patient will need a 3 day supply to go home. CM to follow
[2025-01-11] MEDS: COZAAR 12.5 MG PO (17:18)
[2025-01-11] MEDS: ALDACTONE 12.5 MG PO (18:29)
--- NOTE | 2025-01-11 20:15 | PTCARENOTE ---
Pt's 8pm Coreg held per hr parameter. Ht rate in low 50's sinus.
[2025-01-12 04:59] VITALS: BP 134/43
[2025-01-12 05:12] VITALS: BMI 29.1
[2025-01-12 05:39] LABS: Hematocrit 40.5 % (37.0-47.0); Mean Corp Hgb Conc. 34.6 g/dL (33.0-37.0); Mean Corpuscular Hgb 30.8 pg (27.0-31.0); Mean Platelet Volume 10.9 fL (7.4-10.4); Platelet Count 159 10^3/uL (130-400); Red Blood Cell Count 4.55 10^6/uL (4.20-5.40); Red Cell Dist. Width 13.2 % (11.5-14.5); White Blood Cell Count 4.1 10^3/uL (4.8-10.8)
[2025-01-12 06:09] LABS: ALT (SGPT) 30 U/L (0-35); AST (SGOT) 21 U/L (14-36); Alkaline Phosphatase 51 U/L (38-126); Blood Urea Nitrogen 17 mg/dl (7-17); Calcium 9.2 mg/dl (8.4-10.2); Carbon Dioxide 28 mmol/L (22-30); Chloride 104 mmol/L (98-107); Direct Bilirubin 0.1 mg/dl (0.0-0.4); Estimated Creatinine Clearance 69 ml/min; Glucose 84 mg/dl (70-99); Magnesium 2.3 mg/dl (1.6-2.3); Potassium 3.6 mmol/L (3.5-5.1); Sodium 141 mmol/L (135-145); Total Bilirubin 1.5 mg/dl (0.2-1.3); Total Protein 6.7 g/dl (6.3-8.2); eGFR > 60.00
--- NOTE | 2025-01-12 06:47 | W.PN.HOSP.TC ---
Addendum entered and electronically signed by Nataliya Dahl MD 01/12/25 13:26:
Total DC time 40 minutes
Original Note:
Today's Communication/Plan
-
see A/P
Assessment / Plan
Assessment / Plan
HPI: 79-year-old F with history of peripheral arterial disease, paroxysmal atrial fibrillation status post ablation, hypertension, anxiety; who presented with acute on chronic dyspnea on exertion and the new exertional angina for at least 1 month.
Suspect the patient's symptoms of dyspnea is more related to exertional angina. She reports having chest pressure that is severe with ambulation and improved at rest. She has also been having intermittent episodes of atrial fibrillation with
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
A/P:
# Exertional dyspnea, suspect 2/2 uncontrolled atrial fibrillation.
Had pharmacological stress test in September which was inconclusive.
Troponin unrevealing
No indication for heparin drip at this time.
Continue daily aspirin and Eliquis. Continue Coreg
Echo this admission unrevealing: EF 50-55%. Mild mitral regurgitation. Mild tricuspid regurgitation. Compared to the previous echo September 2024, there is no significant change.
Card on board
# Recurrent Paroxysmal Atrial fibrillation
outpt EP eval in January 2025 and for repeat PVI in January 2025.
Continue Coreg
Continue Eliquis
Started Tikosyn load per card
TSH 1.35
# Acute on chronic HFpEF
There is slight cephalization of the pulmonary vessels and increased vascular markings.
BNP 5690 (slightly higher than baseline)
Echo this admission unrevealing: EF 50-55%. Mild mitral regurgitation. Mild tricuspid regurgitation. Compared to the previous echo September 2024, there is no significant change.
Cont Lasix 60 mg IV daily for now (SOFTWARE [employer]IENT ARCHITECT alternating 40 mg and 60 mg doses). Follow daily weights and i/os
added spironolactone 12.5 mg daily for HFpEF.
Somewhat bradycardic, reduced carvedilol from 9.375 to 6.25 mg twice daily.
Cont SOFTWARE [employer]IENT ARCHITECT Losartan 12.5 mg
Card on board
# Mildly elevated LFT likely hepatic congestion, resolved
# Hypokalemia
replete
# HANG due to cardiorenal syndrome, resolved
CKD ruled out
Cr improved from 1.3 on admission to 0.7
DVT prophylaxis - On Eliquis
Code Status - Full Code.
Anticipated Discharge: Within 24 hours
Subjective/Interval History
-
Date of Service: January 12, 2025
Objective Data
-
Labs:
Laboratory Results
01/12/25
05:07
WBC 4.1 L
Hgb 14.0
Hct 40.5
Plt Count 159
Sodium 141
Potassium 3.6
Chloride 104
Carbon Dioxide 28
BUN 17
Creatinine 0.7
Glucose 84
Calcium 9.2
Total Bilirubin 1.5 H
AST 21
ALT 30
Alkaline Phosphatase 51
Vital Signs:
Vital Signs
Temp Pulse Resp BP Pulse Ox
36.8 C 57 20 134/43 95
01/12/25 04:59 01/12/25 05:00 01/12/25 04:59 01/12/25 04:59 01/12/25 04:59
I&O
01/10/25 01/11/25 01/12/25
06:59 06:59 06:59
Intake Total 480 / 480
Output Total 1625 / 1625
Balance 480 / 480 -1625 / -1625
Review of Systems
-
History Source: Patient
Respiratory: Denies Trouble Breathing (resolved )
Cardiac: Denies Chest Pain
Physical Exam
-
General: Well Developed, Well Nourished, No Apparent Distress, Comfortable and Conversant
HEENT: Normocephalic and Atraumatic; Negative Oxygen
Respiratory: Clear to Auscultation and Non Labored Respirations; Negative Crackles or Accessory Resp Muscle Use
Cardiac: Regular Rhythm and S1/S2
GI: Soft, Nontender and Nondistended
Musculoskeletal: No Edema
Neuro: Awake and Alert
Psych: Calm and Intact Judgement/Insight
Data Reviewed
-
Diagnostic Radiology: Image personally visualized and interpreted and Report Reviewed by me
Labs: Labs Reviewed by me
[2025-01-12 07:05] VITALS: BP 133/51
[2025-01-12] MEDS: KCL 40 MEQ PO (08:41)
[2025-01-12] MEDS: MIRALAX PO (08:42)
[2025-01-12] MEDS: ALDACTONE 12.5 MG PO (08:42)
[2025-01-12] MEDS: ELIQUIS 5 MG PO (08:42)
[2025-01-12] MEDS: ASPIR LOW (ENTERIC COATED) 81 MG PO (08:42)
[2025-01-12] MEDS: LASIX 60 MG IV (08:43)
[2025-01-12] MEDS: PEPCID 20 MG PO (08:43)
--- NOTE | 2025-01-12 08:43 | CM ---
Pricing on Jardiance through the patient's [employer], is $47 for a 30 day supply
[facility] is a tier 4, so patient is responsible for 50% of cost which will be $282.
I will place a free 30 day coupon for Jardiance in the patients red discharge folder.
[2025-01-12] MEDS: FLUSH (NSS) 2 FLUSH IV (08:45)
[2025-01-12] MEDS: TIKOSYN 125 MCG PO (08:46)
--- NOTE | 2025-01-12 10:07 | W.PN.CARDCBS ---
Addendum entered and electronically signed by Simone Rg MD 01/12/25 12:09:
I saw and examined the patient.
The TIE BUYER or PA's note was reviewed and I agree with the note.
Comment: General: Well developed, well nourished in NAD.
Neck: Supple, no JVD, HJR, carotids +2 B/L, no bruits bilaterally.
Heart: Non displaced PMI, RRR, no murmurs, No S3, S4, no rubs.
Lungs: Scattered rhonchi
Extremities: No clubbing, cyanosis or edema bilaterally.
Neuro: Grossly nonfocal, awake, alert and oriented x3.
Stable cardiology status for discharge. Await ECG after fifth dose of Tikosyn. Follow-up arranged. Discussed with primary service. Discharge on Lasix 80 mg daily and check renal profile in 1 week
Original Note:
Today's Communication / Plan
-
Continue Tikosyn 125mcg Q12H
Await ECG after the 5th dose this AM to reassess QTc.
Continue Eliquis 5mg BID
Discharge on higher dose lasix 80mg daily
BMP in 1 week
Impression / Plan
-
PCP: Dr. Pierre
Primary Enroller: Dr. Dr. Nick
Impression:
Admitted with acute HFpEF and palpitations 01/09/2025
Recent admission for acute HFpEF and A-fib/flutter 12/23/2024 until 12/25/2024
Acute HFpEF
Hypokalemia, of note had hyperkalemia during admission 12/23/2024
Chest pain
Paroxysmal Afib
s/p successful MADELAINE/CV 03/09/24 with recurrence 03/11/24
Briefly on amiodarone therapy as a bridge to PVI
s/p PVI 03/28/2024
Recurrence of Atach/typical flutter with RVR and then spontaneous conversion to SR 11/2024
Recurrence of A-fib at cardiology office visit 01/02/2025
Tikosyn load starting 01/10/25
OAC with Eliquis
Multiple medication intolerances
PAD
s/p left femoral endarterectomy 2021
right subclavian stenosis
Hyperlipidemia with statin and Zetia intolerance
HTN
Lexiscan nuclear stress September 2024: Probably normal study. There is a predominantly fixed small, mild defect in the apical inferior and mid inferior segments most consistent with bowel attenuation noted in this region. No significant ischemia is
seen. Systolic function is mildly reduced. The ejection fraction is 42%. Compared with the study performed on 01/02/2022. There is decreased left ventricular ejection fraction from 61% to 42%.
Echo 01/28/24: EF 61%, no regional wall motion abnormalities noted, mild concentric LVH, mild MR, mild TR, PAP 25-30 mmHg
Echo 10/02/24: EF 50 to 54%, normal RV size and function, mild MR, mild TR, no pericardial effusion.
Echo 01/10/2025: EF 50 to 55%, mild MR, mild TR
Plan:
-Presented with SOB and palpitations. Admitted with acute heart failure exacerbation.
-Diuresing with IV lasix 60mg daily. weight down to 171 lbs on 01/12, down at least 4lbs this admission.
-Creat stable at 0.7. Will discharge on higher dose lasix 80mg daily. Check BMP in 1 week.
-Echo 01/10 noted preserved EF with mild MR and mild TR as noted above.
-Continue coreg, losartan, and spironolactone.
-She had recent admission w/ recurrent AT/AF and was seen in follow up by cardiology on 01/02 and noted to be back in Afib.
-New to Tikosyn 125mcg Q12H this admission. Remains in SR on review of telemetry.
-QTc stable at 455 ms after 4th dose in PM 01/11. Await EKG after 5th dose this AM.
-If stable, ok for discharge on Tikosyn 125mcg Q12H.
-Continue Eliquis 5mg BID
-She is scheduled to see Dr. Nick in the office on 02/12/2025 and is tentatively scheduled for ablation 02/18/2025. We discussed using Tikosyn as a bridge to ablation therapy and that it may even be continued for period of time beyond ablation.
HPI: Patient came to [facility] ER yesterday afternoon with chest pain and SOB and was admitted with acute HF and cardiology is consulted. Patient was just admitted for acute HFpEF 12/23/2024 until 12/25/2024 and during that admission was noted to have a
symptomatic recurrence of atrial fibrillation and then spontaneous conversion to sinus rhythm. Patient has a longstanding history of atrial arrhythmia and had rapid recurrence of A-fib following successful cardioversion back in 03/2024 leading to
amiodarone addition as a bridge to ablation therapy which was successfully performed with a PVI on 03/28/2024. Patient seemed to be doing well until she had a symptomatic recurrence of atrial arrhythmia in the form of A. tach/typical atrial flutter
resulting in an acute HFpEF and admission 12/23/2024. During that admission patient then spontaneously converted to SR and was IV diuresed. Patient was seen in the cardiology office for follow-up on 01/02/2025 was found to be in A-fib. Patient's
Coreg dose was increased and she was set up with EP appointment and preliminarily scheduled for repeat PVI 02/26/2025. Patient says that she has continued to have intermittent palpitations and feels that her blood pressure is up and down with this.
With all of this she gets very symptoms including palpitations shortness of breath and chest pressure. Patient came to the ER with the symptoms and was found to be in SR and no obvious recurrence of atrial arrhythmia on telemetry monitoring thus
far.
Progress Note - Enroller
Subjective
Date of Service: January 12, 2025
Feeling well. Remains in SR. No SOB
Objective
Labs:
01/12/25 05:07
01/12/25 05:07
Labs
Hgb 14.0 g/dL (12.0-16.0) 01/12/25 05:07
Hct 40.5 % (37.0-47.0) 01/12/25 05:07
Plt Count 159 10^3/uL (130-400) 01/12/25 05:07
Sodium 141 mmol/L (135-145) 01/12/25 05:07
Potassium 3.6 mmol/L (3.5-5.1) 01/12/25 05:07
BUN 17 mg/dl (7-17) 01/12/25 05:07
Creatinine 0.7 mg/dL (0.6-1.0) 01/12/25 05:07
Glucose 84 mg/dl (70-99) 01/12/25 05:07
Troponins
01/10/25 01/10/25 01/10/25
00:32 07:21 11:38
Troponin I 0.019 < 0.012 D 0.014
01/10/25
18:46
Troponin I < 0.012
Vital Signs and I&O:
Vital Signs
Temp Pulse Resp BP Pulse Ox
98.1 F 47 16 133/51 93
01/12/25 07:04 01/12/25 08:46 01/12/25 07:04 01/12/25 08:46 01/12/25 07:05
Vital Signs
Temp Pulse Resp BP Pulse Ox
98.1 F 47 16 133/51 93
01/12/25 07:04 01/12/25 08:46 01/12/25 07:04 01/12/25 08:46 01/12/25 07:05
Intake & Output
01/10/25 01/11/25 01/12/25 01/13/25
06:59 06:59 06:59 06:59
Intake Total 480 / 480
Output Total 1625 / 1625 200 / 200
Balance 480 / 480 -1625 / -1625 -200 / -200
Physical Exam
Physical Exam
GEN: No distress, awake, alert, oriented x3
HEENT: supple, anicteric, mmm
LUNGS: CTA b/l, no wheezes/rales
CV: Reg, S1/S2, no murmur
EXT: No clubbing, cyanosis, or edema
NEURO: Gross non-focal
SKIN: Warm, dry, no rash
--- NOTE | 2025-01-12 10:18 | PTCARENOTE ---
Patient given 5th dose of tikosyn this morning, for discharge today. Received last dose of IV lasix and she is saving her urine output for us to record. Her daughter will be able to pick her up at 1500. TT to cardiology re: coreg which was held last
PM and this AM due to HR < 55.
--- NOTE | 2025-01-12 10:21 | CM ---
I confirmed with the patient's [facility] and they do have Dofetilide 125mcq in stock. Patient will need a 3 day script to go home.
[2025-01-12 11:26] VITALS: BP 121/56
--- NOTE | 2025-01-12 12:54 | W.DCSUMMARY ---
Discharge Summary
Discharge Data
Date of Admission: 01/11/25
Date of Discharge: 01/12/25
-
Pending Results: No
Hospital Course
Principal Diagnosis:
Exertional dyspnea, suspect due to uncontrolled recurrent atrial fibrillation.
Acute on chronic HFpEF
HANG due to cardiorenal syndrome, resolved
Chronic Diagnoses:�
Peripheral arterial disease,
Paroxysmal atrial fibrillation status post ablation
Hypertension,
Anxiety
Consultations:�
Cardiology
Procedures:�
None
Clinical course:�
This is a 79-year-old female with past medical history as stated above, who presented with acute on chronic dyspnea on exertion and the new exertional angina ongoing for at least 1 month. She has also been having intermittent episodes of atrial
fibrillation with scheduled ablation in 1 to 2 weeks.
Problem 1:
Exertional dyspnea, suspect due to uncontrolled recurrent atrial fibrillation.
She has had pharmacological stress test in September which was inconclusive.
Her troponin this admission was also unrevealing.
Her Echo this admission was unrevealing: EF 50-55%. Mild mitral regurgitation. Mild tricuspid regurgitation. Compared to the previous echo September 2024, there is no significant change.
She was started with Tikosyn load this admission, and was discharged with 125 mcg every 12 hours for 30 days while awaiting for outpatient ablation.
She can also continue with Coreg but at reduced dose (from 9 mg twice daily to 6.25 mg twice daily due to borderline bradycardia), and prior to admission Eliquis.
Problem 2:
Acute on chronic HFpEF.
She received IV Lasix 60 mg daily while in the hospital, and was discharged with oral Lasix at 80 mg daily to continue going forward.
Spironolactone 12.5 mg daily was added for HFpEF.
She can continue with prior to admission losartan and Coreg as stated above.
Problem 3:
HANG due to cardiorenal syndrome, resolved.
Her creatinine improved from 1.3 on admission to 0.7 on the day of discharge.
As for the rest of her medical problems, they were stable during her hospital stay.
Discharge Plan
-
Patient Disposition: Home (Routine Discharge)
Discharge Diagnosis/Procedures: Exertional dyspnea, suspect due to uncontrolled atrial fibrillation;
Recurrent Paroxysmal Atrial fibrillation;
Acute on chronic heart failure (HFpEF);
Mildly elevated LFT likely hepatic congestion, resolved
Hypokalemia (resolved after repletion)
Condition: Good
Diet: As tolerated, 2 Gram Sodium and Restrict fluids to 48 oz
Activity: As tolerated
Driving Restrictions: As prior to admission
Referrals:
Chucky Pierre MD [Family Provider, Family Practice] - in less than 1 week
Chucky Nick DO [Active, Cardiology] - 02/12/25 1:20 pm
Additional Discharge Medication Instructions: Your coreg dose decreased to 6.25 mg twice daily. Follow your heart rate at home and hold if less than 55 bpm.
We have added spironolactone 12.5 mg daily.
take lasix 80 mg daily
Prescriptions:
New
spironolactone 25 mg Tablet
12.5 mg PO DAILY Qty: 30 0RF
carvedilol 6.25 mg Tablet
6.25 mg PO BID Qty: 60 0RF
furosemide 80 mg Tablet
80 mg PO DAILY Qty: 30 0RF
dofetilide [Tikosyn] 125 mcg capsule
125 mcg PO Q12H Qty: 60 11RF
Continued
cholecalciferol (vitamin D3) 1,000 UNITS tablet
1,000 units PO NOON
cyanocobalamin (vitamin B-12) 1,000 MCG tablet
1,000 mcg PO NOON
flaxseed oil 1,000 MG capsule
1,000 mg PO NOON
diazepam 5 MG tablet
5 - 10 mg PO HSPRN PRN (Reason: ANXIETY)
coenzyme Q10 [Co Q-10] 200 MG capsule
200 mg PO NOON
ascorbic acid (vitamin C) [Vitamin C] 500 MG tablet
500 mg PO NOON
Eliquis 5 mg Tablet
5 mg PO BID Qty: 60 11RF
aspirin 81 mg Tablet,Delayed Release (Dr/Ec)
81 mg PO DAILY
famotidine [Pepcid] 20 mg Tablet
20 mg PO BID
magnesium oxide 400 mg (241.3 mg magnesium) Tablet
250 mg PO NOON
potassium chloride 20 mEq tablet extended release
20 meq PO BID Qty: 60 0RF
pravastatin 10 mg Tablet
10 mg PO MOWEFR
Patient Comments:
Pt states on HOLD as of 01/02/25
losartan 25 mg Tablet
12.5 mg PO QPM
Rx Instructions:
Pt states on HOLD since 01/02/25
acetaminophen [Tylenol] 325 mg Tablet
650 mg PO Q6HPRN PRN (Reason: MILD PAIN)
Discontinued
furosemide [Lasix] 40 mg Tablet
60 mg PO MOWEFR
carvedilol [Coreg] 3.125 mg Tablet
9.375 mg PO BID
furosemide 40 mg tablet
40 mg PO SUTUTHSA
Discharge Orders:
Discharge Patient (As Directed); Ordered 01/12/25
Ordered By: Nataliya Dahl
Care Plan Goals
Care Plan Goals:
Problem: Readiness for enhanced knowledge related to diagnosis and treatment plan
Goal: Understand your diagnosis and treatment plan needs, including medications if applicable.
Instructions: Know your diagnosis, underlying causes and treatment plan options, including medications if applicable. Consult with your health care team to learn about your diagnosis and treatment plan, including medications if applicable.
Discharge Date and Time
Print Language: KENYAN
[2025-01-12] MEDS: MYLICON 80 MG PO (13:29)
--- NOTE | 2025-01-12 13:31 | PTCARENOTE ---
Patient complaining of abdominal discomfort while sitting oob in the chair. Did move her bowels this morning, having pain which feels like gas pains, bowel sounds active, no nausea. TT to Dr. Dahl and patient medicated with simethicone PO as ordered.
--- NOTE | 2025-01-12 17:08 | PTCARENOTE ---
Patient had relief of abdominal cramping from mylicon PO. Daughter here to pick her up, reviewed the discharge instructions with the patient and she states her understanding. Patient discharged home with her daughter.
== END 2025-01-12 16:00 | disposition home or self-care (01) | DRG 291 ==
LOC: IVU 07:29
PROVIDERS: Internal Medicine Cardiovascular Disease; Student in an Organized Health Care Education/Training Program; ADMITTING PHYSICIAN Internal Medicine; ATTENDING PHYSICIAN Internal Medicine; EMERGENCY PHYSICIAN Emergency Medicine; FAMILY PHYSICIAN Family Medicine; OTHER PHYSICIAN Nuclear Medicine Nuclear Cardiology
DX: I11.0 Hypertensive heart disease with heart failure (principal); I50.33 Acute on chronic diastolic (congestive) heart failure; N17.9 Acute kidney failure, unspecified; I48.0 Paroxysmal atrial fibrillation; Z87.891 Personal history of nicotine dependence; E87.6 Hypokalemia; F41.9 Anxiety disorder, unspecified; I73.9 Peripheral vascular disease, unspecified
CPT/HCPCS: 93308; 71046; 80048; 80053; 82248; 83735; 83880; 84443; 84484; 85025; 85027; 93005; 93321; 93325; 96374; 97163; 99285

== ENCOUNTER 2025-02-07 16:59 | Inpatient (IN) | payer MEDICARE, OTHER, SELFPAY ==
[2025-02-07] VITALS (7 sets, daily range): BP systolic 152–174; BP diastolic 61–87; PULSE 74–86; BMI 29.3; BMI 28.8
[2025-02-07 13:45] LABS: Hematocrit 41.4 % (37.0-47.0); Hemoglobin 14.1 g/dL (12.0-16.0); Mean Corp Hgb Conc. 34.1 g/dL (33.0-37.0); Mean Corpuscular Volume 90.0 fL (81.0-99.0); Nucleated Red Blood Cells % 0 %; Platelet Count 202 10^3/uL (130-400); Red Cell Dist. Width 12.8 % (11.5-14.5)
[2025-02-07 13:57] LABS: INR 1.22; PT 16.0 Sec (11.4-14.6)
[2025-02-07 13:58] LABS: APTT 32.6 Sec (23.4-35.0)
--- NOTE | 2025-02-07 13:58 | ED.GENMED ---
History of Present Illness
General
Chief Complaint: Rectal Bleeding
Source: patient
Exam Limitations: none
Time Seen by Provider: 02/07/25 13:10
Nursing documentation reviewed up to this point in time: agreed with
History of Present Illness
History of Present Illness:
Patient with history of congestive heart failure and atrial fibrillation on aspirin and Eliquis, presents to ED secondary to multiple bloody bowel movements over the past 3 days. Denies dizziness or shortness of breath. Denies weakness. Denies
nausea or vomiting. Denies abdominal pain. Denies difficulty with bowel movements. Denies previous history of similar symptoms.
Past History
Past History
ED Past Medical History: Arrthythmia (Atrial fibrillation), Cancer (Skin), GERD, HTN, Hypercholesterolemia, Psychiatric (anxiety) and Other (PAD)
ED Past Surgical History: Cholecystectomy, Gynecological (tubal ligation) and Tonsilectomy
Patient has exhibited threatening behavior?: No
PSI?: No
Social History
Tobacco: Former smoker
Alcohol: None
Personal:
Living: with family
Review of Systems
Review of Systems
Allergies reviewed?: Yes
Constitutional: Reports no symptoms
Respiratory: Reports no symptoms; Denies trouble breathing
Cardiac: Reports no symptoms
ABD/GI: Reports bloody stools; Denies abdominal pain or vomiting
Musculoskeletal: Reports no symptoms
Skin: Reports no symptoms
Neurological: Reports no symptoms; Denies dizzy or weakness
Phy Exam
Physical Exam
Physical Exam:
Physical Exam
General: no apparent distress, not acutely ill. afebrile
Head: nc/at. eomi
Neck: supple. no meningeal signs.
Heart: s1/s2 regular rate and rhythm
Lungs: no acute respiratory distress. clear bilaterally
Abdomen: normal bowel sounds. not tender. rectal exam (FARZANEH Woodall, at bedside): maroon stool, heme positive
Neuro: alert and oriented x 3. no focal neurological deficits
Skin: no rash
Psychiatric: well kept. interactive and cooperative
Extremities: no edema. no calf tenderness.
Course
Orders/Labs/Results
Orders:
Orders
02/07/25 Lunch
Clear Liquid
At Your Request: Full Participation
Clear Liquids: No red liquids
02/07/25 12:46
ECG [Electrocardiogram (*1)] Urgent
Reason for Study: Fatigue / Weakness
EKG- Treatment ONCE
02/07/25 13:36
Type And Crossmatch [Type+Screen] Urgent
Complete Blood Count/With Diff Urgent
Comprehensive Metabolic Panel Urgent
PTT Urgent
Prothrombin Time Urgent
Troponin I Urgent
02/07/25 14:15
Pantoprazole [Protonix IV] 40 mg IV NOW STA
02/07/25 14:45
GASTROINTESTINAL CONSULT Routine
Consulting Provider: Eve Genao
Was physician already notified: Yes
02/07/25 16:41
Admit/Transfer Patient As Directed
Co-Sign Provider:
Level of Care: Inpatient admission
Assign to:: Telemetry
Physician / Group: Steve Venegas
Diagnosis: GI bleed
Reason for Telemetry: Arrhythmia
Date to Stop Telemetry: 02/10/25
Time to Stop Telemetry: 11:00
Reason for Hospitalization: GI bleed
Expected length of stay greater than two midnights?: Yes
ELOS- Estimated Length of Stay in days: 3
I certify the patient meets the requirements for IP care: Yes
PRN Pain Medication Management As Directed
May give lesser potent ordered pain med per pt: Yes
preference::
Protocol:: Medication orders for pain may be administered in a
manner that supports deferring to patient preference
when the pt is:
- Requesting an ordered lesser potent pain medication.
Least to most potent pain medications are defined
as: acetaminophen < NSAID < tramadol < opioids
(morphine, oxycodone, hydromorphone).
- Requesting a lesser dose of the same medication IF
ORDERED.
- Requesting a less intrusive route of administration
if both routes are prescribed by the provider (PO <
IV).
02/07/25 16:44
Code Status As Directed
Resuscitation Status: Full Code
02/07/25 20:03
Acetaminophen [Tylenol] 650 mg PO Q4HPRN PRN
Carvedilol [Coreg] 6.25 mg PO BIDPRN PRN tachycardia
Dofetilide [Tikosyn] 125 mcg PO Q12
Losartan [Cozaar] 12.5 mg PO QPM
Potassium Chloride [KCl] 20 meq PO BID
02/07/25 20:03
CARDIOLOGY CONSULT Routine
Consulting Provider: Simone Rg
Was physician already notified: Yes
Activity As Directed
Activity Level: Ambulate
INT (Intravenous Needle Therapy) As Directed
Comment: Place 2 IV catheters of the largest bore possible until stable
Intake/ Output As Directed
Frequency: Per unit guidelines
Orthostatic Vital Signs As Directed
Orthostatic VS Frequency: Now
Comment: then every four hours for twenty-four hours
Pneumatic Compression Sleeves As Directed
Type: Knee high
Vital Signs As Directed
Frequency: Per unit guidelines
Weight As Directed
Frequency: Daily
Type of Scale: Standing Scale
Comment: Daily morning weight. If unable to stand, use balanced bed scale.
Weight As Directed
Frequency: Once
Type of Scale: Standing Scale
Comment: Upon Admission. If unable to stand, use balanced bed scale.
Pulse Ox/cont/shift [RESP] Routine
Quantity: 1
Special Instructions: Daily pulse oximetry at rest. If greater than 92% at rest also obtain pulse oximetry
while ambulating as tolerated.
DX Deep Vein Thrombosis Video Routine
02/07/25 21:09
H&H Q8H
02/07/25 22:00
0.9% Sodium Chloride [Nss (Preservative Free)] 10 ml IV BID
Pantoprazole [Protonix IV] 40 mg IV BID
Pantoprazole [Protonix IV] 40 mg IV BID
02/08/25 05:24
Complete Blood Count/No Diff IN AM
02/08/25 08:00
Famotidine [Pepcid] 20 mg PO DAILY
Furosemide [Lasix] 80 mg PO DAILY
Spironolactone [Aldactone] 12.5 mg PO DAILY
02/08/25 12:00
Ascorbic Acid [Vitamin C] 500 mg PO NOON
Cholecalciferol (Vitamin D3) [VITAMIN D3 (cholecalciferol)] 25 mcg PO NOON
Cyanocobalamin [Vitamin B-12] 1,000 mcg PO NOON
Magnesium Oxide 250 mg PO NOON
coenzyme Q10 [Co Q-10] 200 mg PO NOON
flaxseed oil 1,000 mg PO NOON
02/09/25 07:26
Complete Blood Count/No Diff IN AM
02/10/25 11:00
DC Protocol for Telemetry ONCE
Abnormal Lab Results
02/07/25
13:36
MPV 10.9 H fL
(7.4-10.4)
Absolute Lymphs (auto) 1.0 L 10^3/uL
(1.2-3.4)
Lymphocytes % 16.3 L %
(20.5-51.1)
PT 16.0 H Sec
(11.4-14.6)
BUN 22 H mg/dl
(7-17)
Glucose 109 H mg/dl
(70-99)
Total Bilirubin 1.7 H mg/dl
(0.2-1.3)
02/07/25 13:36
02/07/25 13:36
Vital Signs
Initial and Last Documented VS:
Initial Vital Signs
Temp Pulse Resp BP Pulse Ox
98.0 F 64 18 166/80 95
02/07/25 12:42 02/07/25 12:42 02/07/25 12:42 02/07/25 12:42 02/07/25 12:42
Last Documented Vital Signs
Temp Pulse Resp BP Pulse Ox
97.5 F 66 18 143/70 99
02/09/25 11:34 02/09/25 11:34 02/09/25 11:34 02/09/25 11:34 02/09/25 11:34
MDM/Problems Addressed
MDM/Problems Addressed:
History and exam concerning for potential lower GI bleed. With multiple episodes of bloody bowel movements over the past 24 hours, with patient being on aspirin and Eliquis, patient will be admitted for further evaluation and treatment.
On-call GI physician, Dr. Genao, notified via [place] text.
Blood transfusion consent form on the chart.
*Pulse Oximetry
SaO2: 98
Oxygen Mode of Delivery: Room air
Patient hypoxic: no
*Critical Care Note
Total Time (30-74mins, 75-104mins- exclusive of procedures): Not Applicable
ED Attending Note
-
Portions of this chart may have been created with voice recognition software.� Occasional wrong word or��sound alike� substitutions may have occurred due to the inherent limitations of voice recognition software.
Discharge Plan
Departure
Patient Disposition: Admit
Date of Disposition: 02/07/25
Time of Disposition: 14:13
Presentation/result/management discussed w/ accepting MD/DO: Hospitalist
Discharge Problem:
GI (gastrointestinal bleed)
Interventions
Interventions:
*Risk Screen - Suicide Last Done: 02/07/25 12:42
*Neglect/Abuse Screening Last Done: 02/07/25 12:42
*Nursing Disposition Last Done: 02/07/25 19:58
FX-Hrxcjx-Usxehvoaog Assessment Last Done: 02/07/25 13:40
ED- Cardiac Assessment Last Done: 02/07/25 13:40
ED- Pulmonary Assessment Last Done: 02/07/25 13:40
Discharge Date and Time
Discharge Date/Time: 02/07/25 19:58
[2025-02-07 14:00] LABS: ALT (SGPT) 15 U/L (0-35); AST (SGOT) 20 U/L (14-36); Albumin 4.7 g/dl (3.5-5.0); Alkaline Phosphatase 56 U/L (38-126); Blood Urea Nitrogen 22 mg/dl (7-17); Calcium 9.1 mg/dl (8.4-10.2); Carbon Dioxide 28 mmol/L (22-30); Chloride 104 mmol/L (98-107); Estimated Creatinine Clearance 47 ml/min; Glucose 109 mg/dl (70-99); Potassium 3.8 mmol/L (3.5-5.1); Sodium 140 mmol/L (135-145); Total Protein 7.8 g/dl (6.3-8.2); eGFR 58.02
[2025-02-07 14:10] LABS: Troponin I < 0.012 ng/ml
[2025-02-07] MEDS: PROTONIX IV 40 MG IV (14:23)
--- NOTE | 2025-02-07 14:25 | CON.GI ---
Addendum entered and electronically signed by Eve Genao DO 02/07/25 16:57:
The patient was seen and examined by me independently in collaboration with the nurse practitioner.
Past medical history/social history/medications/allergies/family history reviewed.
Lab data and imaging data reviewed.
Debora Alexandre is a 79-year-old female with past medical history of HFpEF, paroxysmal atrial fibrillation on Eliquis, peripheral arterial disease status post left femoral endarterectomy and right subclavian stenosis, hyperlipidemia, hypertension,
history of cholecystectomy admitted with 3 days of multiple episodes of small-volume hematochezia, she does mention one episode of black formed stool .
Hemoglobin stable at 14.1, previously 14 on 01/12/2025. BUN mildly elevated to 22, creatinine 1, bilirubin 1.7 otherwise LFTs normal. Rectal exam in ER notable for maroon, heme positive stool.
She is on Eliquis and aspirin at home. She follows with Dr. Villalobos as an outpatient, had a recent EGD in October which was largely unremarkable, last colonoscopy in 2021 with diverticulosis otherwise normal.
She is requesting to be discharged tonight, since her hemoglobin is stable. She would like to sleep in her own bed and does not want to share a room once admitted to the hospital.
A/P:
Suspect lower gi bleeding vs. distal small bowel. Recommend colonoscopy to further evaluate given last colonoscopy 3 years ago. Given eliquis, earliest we could perform colonoscopy is Wednesday. Alternatively, can arrange for Dr. Villalobos to perform as an
outpatient next week. Discussed with patient, she will let us know what she decides. If she woudl like to perform as outpatient, okay for d/c home tonight. Will need to hold eliquis for 48 hours prior to colonoscopy.
Original Note:
Consultation
-
Date/Time Consultation Requested: 02/07/25 1400
Date/Time Consultation Performed: 02/07/25 1425
Requesting Provider: Wild Payton MD
Performing Provider: SANAZ Montague, Florecita Genao DO
Reason for Consultation: rectal bleeding
Medical History
Chief Complaint / HPI
Chief Complaint: bloody stools
History of Present Illness:
Pt is 79yo presents with hx PAF on Eliquis with prior cardioversion, ablation due for further cardiac procedures this month, CHF, basal cell CA, Melanoma, GERD, HTN, hyperlipidemia, anxiety, diverticulosis, seizures with med reaction, IBS,
diverticulosis, skull fx, retinal hemorrhage, PAD, covid, PNa, possible rectal prolapse, colon polyps with onset of rectal bleeding. No hx bleeding in past. She began with passing large amount of red blood and black formed stool on 02/02. She had no
stools on Wednesday and Wednesday then recurrent stools on Wednesday and Wednesday prompting ER eval. In Er rectal heme + maroon stool with hbg 14. She denies dizziness or lightheadedness.
She admits to abdominal pain with worsening GERD on chronic Pepcid and unable to take PPI with headaches. She denies dysphagia, nausea, vomiting, dizziness, constipation. Occasional loose stool since ray with certain foods.
last scopes:
colonoscopy 09/2021 - diverticulosis, erythema in rectum bx neg
EGD:10/2024- normal esophagus, erythema gastric antrum and body, normal duodenum bx neg
Past Medical History
Past Medical History: Arrhythmias (PAF), Cancer (basal cell CA, melanoma), CHF, GERD, HTN, Hypercholesterolemia, Seizures (with med reaction), Psychiatric (anxiety ) and Other (IBS, diverticulosis, skull fx, retinal hemorrhage, PAD, covid, PNA,
colon polyps)
Past Surgical History: Cardiac (Cardioversion, ablation), Cholecystectomy, Tonsilectomy and Other (basal cell excision, melanoma excision, femoral endarterectomy)
Social History
Tobacco: Non-Smoker
Alcohol: None
Drug: None
Personal:
Living: With Family
Employment: Retired
Family History
Family History: Other (no family hx GI problems )
Allergies / Home Medications
Allergy/AdvReac Type Severity Reaction Status Date / Time
amlodipine Allergy Diarrhea / Verified 02/07/25 12:42
depression
amoxicillin Allergy Pt does Verified 02/07/25 12:42
not
belieive
this is an
allergy
benazepril Allergy Hives-Patient Verified 02/07/25 12:42
unsure
codeine Allergy Nausea / Verified 02/07/25 12:42
Vomiting
dextromethorphan (From Allergy Itching, Verified 02/07/25 12:42
NyQuil) migraine-from
liquid
Nyquil
doxylamine (From NyQuil) Allergy Itching, Verified 02/07/25 12:42
migraine-from
liquid
Nyquil
gatifloxacin (From Tequin) Allergy Shortness Verified 02/07/25 12:42
of Breath,
Hives
hydromorphone (From Dilaudid) Allergy headache Verified 02/07/25 12:42
pseudoephedrine (From NyQuil) Allergy Itching, Verified 02/07/25 12:42
migraine
red dye Allergy Hives Verified 02/07/25 12:42
Xmyihex-IZH-ChU Reductase Allergy Aches-Severe Verified 02/07/25 12:42
Inhibitor muscle and
joint pain.
trifluoperazine (From Allergy seizure - Verified 02/07/25 12:42
Stelazine) 1974
�Medication �Instructions �Recorded
cholecalciferol (vitamin D3) 25 1,000 units PO NOON Supplement 01/09/22
mcg (1,000 unit) tablet
coenzyme Q10 200 mg capsule (Co 200 mg PO NOON Supplement 01/09/22
Q-10)
cyanocobalamin (vitamin B-12) 1,000 mcg PO NOON Supplement 01/09/22
1,000 mcg tablet
diazepam 5 mg tablet 5 - 10 mg PO HSPRN PRN ANXIETY 01/09/22
flaxseed oil 1,000 mg capsule 1,000 mg PO NOON herbal supplement 01/09/22
ascorbic acid (vitamin C) 500 mg 500 mg PO NOON Supplement 01/19/22
tablet (Vitamin C)
apixaban 5 mg tablet (Eliquis) 5 mg PO BID Blood clot 05/31/23
prevention/tx #60 tabs
aspirin 81 mg tablet,delayed 81 mg PO DAILY Blood Clot 03/10/24
release Prevention/Tx
famotidine 20 mg tablet (Pepcid) 20 mg PO BID Gastrointestinal Issue 03/10/24
magnesium oxide 400 mg (241.3 mg 250 mg PO NOON Supplement 03/10/24
magnesium) tablet
acetaminophen 325 mg tablet 650 mg PO Q6HPRN PRN MILD PAIN 12/23/24
(Tylenol)
losartan 25 mg tablet 12.5 mg PO QPM Blood Pressure 12/23/24
carvedilol 6.25 mg tablet 6.25 mg PO BIDPRN PRN tachycardia 02/07/25
dofetilide 125 mcg capsule 125 mcg PO Q12 Arrhythmia 02/07/25
(Tikosyn)
furosemide 80 mg tablet 80 mg PO DAILY Fluid 02/07/25
Retention/Swelling
potassium chloride 20 mEq 20 meq PO BID Electrolyte Repletion 02/07/25
tablet,extended release
spironolactone 25 mg tablet 12.5 mg PO DAILY Heart Failure 02/07/25
Review of Systems
-
History Source: Patient and Family
Constitutional: Reports No Symptoms
EENT: Reports No Symptoms
Respiratory: Reports No Symptoms
Abdomen/GI: Reports Abdominal Pain, Bloody Stools and Black Stools
: Reports No Symptoms
Musculoskeletal: Reports No Symptoms
Skin: Reports No Symptoms
Neurological: Reports No Symptoms
Endocrine: Reports No Symptoms
Hematologic/Lymphatic: Reports Bleeding
Vital Signs
Temp Pulse Resp BP Pulse Ox
97.8 F 60 15 152/61 98
02/07/25 14:00 02/07/25 14:00 02/07/25 14:00 02/07/25 14:00 02/07/25 14:00
Physical Exam
Exam
General: Well Developed, Well Nourished and No Apparent Distress
HEENT: Normocephalic and Anicteric
Respiratory: Clear
Cardiac: Regular Rhythm
GI: Soft, Non Distended and Tender (minimal epigastric pain)
Rectal: Hem Positive (trace pink, no prolapse seen, ER rectal with maroon stool)
Musculoskeletal: No Clubbing and No Cyanosis
Skin: Warm
Neuro: Awake, Alert and AO x 3
Hematologic/Lymphatic: Lymphadenopathy
Psych: Calm
Results
WBC 6.2 10^3/uL (4.8-10.8) 02/07/25 13:36
Hgb 14.1 g/dL (12.0-16.0) 02/07/25 13:36
Hct 41.4 % (37.0-47.0) 02/07/25 13:36
MCV 90.0 fL (81.0-99.0) 02/07/25 13:36
Plt Count 202 10^3/uL (130-400) 02/07/25 13:36
Absolute Neuts (auto) 4.6 10^3/uL (1.4-6.5) 02/07/25 13:36
PT 16.0 Sec (11.4-14.6) H 02/07/25 13:36
INR 1.22 02/07/25 13:36
APTT 32.6 Sec (23.4-35.0) 02/07/25 13:36
Sodium 140 mmol/L (135-145) 02/07/25 13:36
Potassium 3.8 mmol/L (3.5-5.1) 02/07/25 13:36
Chloride 104 mmol/L (98-107) 02/07/25 13:36
Carbon Dioxide 28 mmol/L (22-30) 02/07/25 13:36
BUN 22 mg/dl (7-17) H 02/07/25 13:36
Creatinine 1.0 mg/dL (0.6-1.0) 02/07/25 13:36
Calcium 9.1 mg/dl (8.4-10.2) 02/07/25 13:36
Total Bilirubin 1.7 mg/dl (0.2-1.3) H 02/07/25 13:36
AST 20 U/L (14-36) 02/07/25 13:36
ALT 15 U/L (0-35) 02/07/25 13:36
Alkaline Phosphatase 56 U/L (38-126) 02/07/25 13:36
Diagnostic Image Results:
Prior GI Procedures:
colonoscopy 09/2021 - diverticulosis, erythema in rectum bx neg
EGD:10/2024- normal esophagus, erythema gastric antrum and body, normal duodenum bx neg
Assessment / Plan
-
Pt is 79yo presents with hx PAF on Eliquis with prior cardioversion, ablation due for further cardiac procedures this month, CHF, basal cell CA, Melanoma, GERD, HTN, hyperlipidemia, anxiety, diverticulosis, seizures with med reaction, IBS,
diverticulosis, skull fx, retinal hemorrhage, PAD, covid, PNA, colon polyps possible rectal prolapse with onset of rectal bleeding. No hx bleeding in past. She began with passing large amount of red blood and black formed stool on 02/02. She had no
stools on Wednesday and Wednesday then recurrent stools on Wednesday and Wednesday prompting ER eval. In Er rectal heme + maroon stool with hbg 14. She denies dizziness or lightheadedness. She admits to abdominal pain with worsening GERD on chronic
Pepcid and unable to take PPI with headaches. Occasional loose stool since ray with certain foods.
last scopes:
colonoscopy 09/2021 - diverticulosis, erythema in rectum bx neg
EGD:10/2024- normal esophagus, erythema gastric antrum and body, normal duodenum bx neg
-rectal bleeding red and blacks stool
-mild BUN elevation
-epigastric pain
-PAF on Eliquis hx cardioversion, ablation due for further cardiac procedures this month
-hx headaches with PPI use
other med problems:
- CHF
-basal cell CA
- Melanoma
- GERD
-HTN
-hyperlipidemia
-anxiety
- diverticulosis
- seizures with med reaction
- IBS, diverticulosis
- skull fx
- retinal hemorrhage
- PAD,
-covid PNA
-colon polyps
PLAN:etiology of bleeding related to upper, lower vs SB bleed
trend hbg and stool record
Pepcid as hx headaches with PPI use
last Eliquis 7/9 AM
will review with Dr. Genao for EGD/colon IP vs OP
pt asking for possible discharge
-
-
Thank you for consultation and allowing me to participate in the patient's care. Please call the environmental law professor GI physician during the after hours with any questions or concerns.
--- NOTE | 2025-02-07 14:39 | W.PN.UPDATE ---
Update Note
Progress Note Update
I saw and examined the patient.
The WASHERY ENGINEER or PA's note was reviewed and I agree with the note.
Comment:
General: Well Developed, Well Nourished, No Apparent Distress
HEENT: NormoCephalic, Moist mucous membranes and Atraumatic
Respiratory: Clear and Non Labored Respirations
Cardiac: S1/S2 and regular
GI: Soft, Non Tender, Normal Bowel Sounds
Musculoskeletal: No Edema
Neuro: Awake, Alert, AO x 3 and Nonfocal/grossly intact
Psych: Calm and Intact Judgment/Insight
79-year-old female with past medical history of peripheral artery disease, proximal atrial flutter status post ablation, anxiety, hypertension, CHF came to the hospital with multiple bloody bowel movements over the past 3 days.� He has been on
aspirin and Eliquis.� Denies any abdominal pain.� Denies any fever/chills.� Denies any chest pain, shortness of breath.� GI consulted.� Continue to monitor bowel movement and hemoglobin.� Transfuse as necessary to keep hemoglobin above 8.� Continue
Lasix, Aldactone. Hold aspirin and eliquis. Consult cardiology. clears. PPI BID
I spent a total of 77 minutes with the patient or on the floor. More than 50% of this time involved counseling and coordination of care.
--- NOTE | 2025-02-07 15:00 | HPS.HSE ---
Family Physician
-
Family Physician: Chucky Pierre
Chief Complaint
-
blood stools
History of Present Illness
Patient is a 79-year-old female with past medical history significant for paroxysmal atrial fibrillation, essential hypertension, hyperlipidemia, GERD, anxiety, hypomagnesemia, HFpEF and COPD who presented to [facility] ED for evaluation of bloody stools
for 4 days. Patient states that she noticed blood in her stool first on Wednesday02/03/2025 and has multiple episodes since then. She reports maroon stools and bright red blood with bowel movements. Denies any shortness of breath, dizziness,
weakness, nausea or vomiting.
Medical History
Past Medical History
Past Medical History: Reports Other
Additional Past Medical History:
Peripheral Arterial Disease s/p Bilateral Femoral Endarterectomy and Left Iliac Stent
Paroxysmal Atrial Fibrillation
Essential Hypertension
Hyperlipidemia
GERD
Anxiety
Hypomagnesemia
HFpEF
COPD
Past Surgical History: Reports Other
Additional Past Surgical History:
Status post MADELAINE/CV 03/09/2024 with recurrence 03/11/2024
Status post electrical ablation 03/28/2024 Dr. Aldana
Tubal Ligation
Cholecystectomy
Tonsillectomy
Melanoma Removal
Basal Cell Removal
Right Femoral Endarterectomy
Left Common Femoral Endarterectomy
Left External Iliac Stent
Social History
Tobacco: Former Smoker
Alcohol: None
Drug: None
Personal: Single
Employment: Retired
Family History
Family History: Other (Mother lymphoma age 69, father history A-fib, CABG x 3 vessel, femoropopliteal, alcohol abuse, lymphoma age 87, 1 brother alcohol abuse, 1 sister living age 86 COPD)
Allergies / Home Medications
Allergies reflects when Allergies were last updated in [facility].
Home Medications with original date entered in [facility]
Allergy/Medication List:
Allergies
Allergy/AdvReac Type Severity Reaction Status Date / Time
amlodipine Allergy Diarrhea / Verified 02/07/25 12:42
depression
amoxicillin Allergy Pt does Verified 02/07/25 12:42
not
belieive
this is an
allergy
benazepril Allergy Hives-Patient Verified 02/07/25 12:42
unsure
codeine Allergy Nausea / Verified 02/07/25 12:42
Vomiting
dextromethorphan (From Allergy Itching, Verified 02/07/25 12:42
NyQuil) migraine-from
liquid
Nyquil
doxylamine (From NyQuil) Allergy Itching, Verified 02/07/25 12:42
migraine-from
liquid
Nyquil
gatifloxacin (From Tequin) Allergy Shortness Verified 02/07/25 12:42
of Breath,
Hives
hydromorphone (From Dilaudid) Allergy headache Verified 02/07/25 12:42
pseudoephedrine (From NyQuil) Allergy Itching, Verified 02/07/25 12:42
migraine
red dye Allergy Hives Verified 02/07/25 12:42
[id number] Reductase Allergy Aches-Severe Verified 02/07/25 12:42
Inhibitor muscle and
joint pain.
trifluoperazine (From Allergy seizure - Verified 02/07/25 12:42
Stelazine) 1974
Home Medications
cholecalciferol (vitamin D3) 25 mcg (1,000 unit) tablet 1,000 units PO NOON Supplement 01/09/22
coenzyme Q10 200 mg capsule (Co Q-10) 200 mg PO NOON Supplement 01/09/22
cyanocobalamin (vitamin B-12) 1,000 mcg tablet 1,000 mcg PO NOON Supplement 01/09/22
diazepam 5 mg tablet 5 - 10 mg PO HSPRN PRN ANXIETY 01/09/22
flaxseed oil 1,000 mg capsule 1,000 mg PO NOON herbal supplement 01/09/22
ascorbic acid (vitamin C) 500 mg tablet (Vitamin C) 500 mg PO NOON Supplement 01/19/22
apixaban 5 mg tablet (Eliquis) 5 mg PO BID Blood clot prevention/tx #60 tabs 05/31/23
aspirin 81 mg tablet,delayed release 81 mg PO DAILY Blood Clot Prevention/Tx 03/10/24
famotidine 20 mg tablet (Pepcid) 20 mg PO BID Gastrointestinal Issue 03/10/24
magnesium oxide 400 mg (241.3 mg magnesium) tablet 250 mg PO NOON Supplement 03/10/24
acetaminophen 325 mg tablet (Tylenol) 650 mg PO Q6HPRN PRN MILD PAIN 12/23/24
losartan 25 mg tablet 12.5 mg PO QPM Blood Pressure 12/23/24
carvedilol 6.25 mg tablet 6.25 mg PO BIDPRN PRN tachycardia 02/07/25
dofetilide 125 mcg capsule (Tikosyn) 125 mcg PO Q12 Arrhythmia 02/07/25
furosemide 80 mg tablet 80 mg PO DAILY Fluid Retention/Swelling 02/07/25
potassium chloride 20 mEq tablet,extended release 20 meq PO BID Electrolyte Repletion 02/07/25
spironolactone 25 mg tablet 12.5 mg PO DAILY Heart Failure 02/07/25
Review of Systems
-
History Source: Patient
Constitutional: Reports No Symptoms
EENT: Reports No Symptoms
Respiratory: Reports No Symptoms
Cardiac: Reports No Symptoms
Abdomen/GI: Reports Bloody Stools and Black Stools
: Reports No Symptoms
Musculoskeletal: Reports No Symptoms
Skin: Reports No Symptoms
Neurological: Reports No Symptoms
Endocrine: Reports No Symptoms
Hematologic/Lymphatic: Reports No Symptoms
Psych: Reports No Symptoms
Physical Exam
Vital Signs
Vital Signs
Temp Pulse Resp BP Pulse Ox
97.8 F 60 15 152/61 98
02/07/25 14:00 02/07/25 14:00 02/07/25 14:00 02/07/25 14:00 02/07/25 14:00
Physical Exam
General: Well Developed, Well Nourished, No Apparent Distress and Obese
HEENT: NormoCephalic, Moist mucous membranes and Atraumatic
Respiratory: Clear and Non Labored Respirations
Cardiac: S1/S2 and Regular Rhythm
GI: Soft, Non Tender, Non Distended and Normal Bowel Sounds
Rectal: Hem Positive
Genito-urinary: Deferred by me
Musculoskeletal: No Clubbing, No Cyanosis and No Edema
Skin: Warm and IV/Catheter Site
Neuro: Awake, Alert, AO x 3 and Nonfocal/grossly intact
Psych: Calm and Intact Judgment/Insight
Laboratory Results
-
02/07/25 13:36
Laboratory Results
PT 16.0 Sec (11.4-14.6) H 02/07/25 13:36
INR 1.22 02/07/25 13:36
APTT 32.6 Sec (23.4-35.0) 02/07/25 13:36
Total Bilirubin 1.7 mg/dl (0.2-1.3) H 02/07/25 13:36
AST 20 U/L (14-36) 02/07/25 13:36
ALT 15 U/L (0-35) 02/07/25 13:36
Alkaline Phosphatase 56 U/L (38-126) 02/07/25 13:36
Troponin I < 0.012 ng/ml 02/07/25 13:36
Data Reviewed
-
Medical Tests (Nuc Med, Echo, EKG etc): Report Reviewed by me (EKG: SINUS RHYTHM WITH MARKED SINUS ARRHYTHMIA WITH PREMATURE SUPRAVENTRICULAR COMPLEXES AND FUSION COMPLEXES NONSPECIFIC ST ABNORMALITY)
Lab Data: Labs Reviewed by me
Impression/Plan
-
IMPRESSION/PLAN:
#GI bleed
multiple episodes of melena with bright red blood over past 4 days
Hgb 14.1/Hct 41.4
- Admit to telemetry
- Consult GI
- trend H/H and transfuse for Hgb <8
- Consent obtained by ED
- Protonix IV BID (patient declines use of PPI per GI, will stop order)
- Clears
#HFpEF
- daily weights
- I & Os
- hold aspirin
- continue furosemide and spironolactone
- Consult Cardiology
#Paroxysmal Atrial Fibrillation
EKG: SINUS RHYTHM WITH MARKED SINUS ARRHYTHMIA WITH PREMATURE SUPRAVENTRICULAR
COMPLEXES AND FUSION COMPLEXES
NONSPECIFIC ST ABNORMALITY
- hold Eliquis (last dose today 02/07/2025 this AM)
- continue carvedilol PRN
- continue Tikosyn
#Essential Hypertension
- continue losartan
#GERD
- continue famotidine
#Anxiety
- continue PRN diazepam
#Peripheral Arterial Disease
s/p Bilateral Femoral Endarterectomy and Left Iliac Stent
#COPD
#Hyperlipidemia
Code status: Full code
DVT prophylaxis: SCDs
--- NOTE | 2025-02-07 20:30 | PTCARENOTE ---
New admit to 2S from ER via stretcher and pt. able to ambulate to room bed with steady gait and no device. Pt. A&Ox3 in NAD, even and unlabored breathing on RA, BP high but otherwise VSS. Pt. oriented to room and unit policies, bed locked and in
lowest position, side rails in place, call light within reach, plan of care reviewed, and questions/concerns addressed at time of assessment.
[2025-02-07] MEDS: KCL 20 MEQ PO (20:44)
[2025-02-07] MEDS: COZAAR 12.5 MG PO (20:45)
[2025-02-07 21:18] LABS: Hematocrit 40.8 % (37.0-47.0); Hemoglobin 14.2 g/dL (12.0-16.0)
[2025-02-07] MEDS: TIKOSYN 125 MCG PO (22:37)
[2025-02-08 00:49] VITALS: BMI 28.8
[2025-02-08 03:02] VITALS: BP 134/45
[2025-02-08 04:16] VITALS: BP 108/62; BP 110/70; BP 134/45; PULSE 56; PULSE 80; PULSE 82
[2025-02-08 06:52] VITALS: BMI 28.8
[2025-02-08 06:54] LABS: Hematocrit 37.5 % (37.0-47.0); Hemoglobin 12.9 g/dL (12.0-16.0); Mean Corp Hgb Conc. 34.4 g/dL (33.0-37.0); Mean Corpuscular Volume 89.1 fL (81.0-99.0); Platelet Count 181 10^3/uL (130-400); Red Cell Dist. Width 12.6 % (11.5-14.5)
--- NOTE | 2025-02-08 07:30 | W.PN.HOSP.TC ---
Today's Communication/Plan
-
Plan for colonoscopy in a.m.
Assessment / Plan
Assessment / Plan
Physical exam:
General: Well Developed, Well Nourished and No Apparent Distress
HEENT: Normocephalic, Atraumatic and Moist Mucous Membranes
Respiratory: Clear to Auscultation; Negative Wheezes, Rales or Rhonchi
Cardiac: Regular Rhythm and S1/S2
GI: Soft, Nontender and Nondistended
Musculoskeletal: No Clubbing, No Cyanosis and No Edema
Neuro: Awake, Alert and Oriented
Psych: Calm
A/P:
Concerns for acute GI bleed:
Clear liquid diet
GI consult appreciated
Holding Eliquis
PPI
Plan for colonoscopy in a.m. +/- EGD
Chronic HFpEF:
Continue diuretic
Continue GDMT
Continue monitor volume status
Paroxysmal A-fib:
Continue with dofetilide
On beta-blockers as needed
Anticoagulation on hold
Plan for ablation as outpatient coming weeks
Other medical problems include:
Hypertension
Hyperlipidemia
Anemia
PVD
Anxiety
DVT prophylaxis:
SCD
CODE STATUS:
Full code
time spent 35 minutes
Anticipated Discharge: 24 - 48 hours
Subjective/Interval History
-
Date of Service: February 08, 2025
Patient denies nausea vomiting. No bowel movement today-no melena or hematochezia. No cp or sob.
Objective Data
-
Labs:
Laboratory Results
02/07/25 02/08/25
21:09 05:24
WBC 4.8
Hgb 14.2 12.9
Hct 40.8 37.5
Plt Count 181
Vital Signs:
Vital Signs
Temp Pulse Resp BP Pulse Ox
97.9 F 56 18 134/45 94
02/08/25 03:02 02/08/25 03:02 02/08/25 03:02 02/08/25 03:02 02/08/25 03:02
I&O
02/07/25 02/08/25 02/09/25
06:59 06:59 06:59
Intake Total 50 / 50
Balance 50 / 50
[2025-02-08 07:50] VITALS: BP 134/68
--- NOTE | 2025-02-08 07:59 | W.PN.GI.CBS2 ---
Today's Communication / Plan
-
Clear liquid diet, colonoscopy tomorrow. Give mag citrate now then prep later. NPO past midnight. Hold eliquis.
Assessment / Plan
-
Debora Alexandre is a 79-year-old female with past medical history of HFpEF, paroxysmal atrial fibrillation on Eliquis, peripheral arterial disease status post left femoral endarterectomy and right subclavian stenosis, hyperlipidemia, hypertension,
history of cholecystectomy admitted with 3 days of multiple episodes of small-volume hematochezia, she does mention one episode of black formed stool .
Hemoglobin stable at 14.1, previously 14 on 01/12/2025. BUN mildly elevated to 22, creatinine 1, bilirubin 1.7 otherwise LFTs normal. Rectal exam in ER notable for maroon, heme positive stool.
She is on Eliquis and aspirin at home. She follows with Dr. Villalobos as an outpatient, had a recent EGD in October which was largely unremarkable, last colonoscopy in 2021 with diverticulosis otherwise normal. She admits to abdominal pain with worsening
GERD on chronic Pepcid and unable to take PPI with headaches, endorses this is the pain she had prior to her recent EGD with Dr. Villalobos, there is no change in sx. Occasional loose stool since ray with certain foods.
last scopes:
colonoscopy 09/2021 - diverticulosis, erythema in rectum bx neg
EGD:10/2024- normal esophagus, erythema gastric antrum and body, normal duodenum bx neg
A/P:
-hemoglobin overall stable, 14.2 -->12.9, no bleeding overnight
-Clear liquid diet today
-give mag citrate now given constipation, then colon prep later today
-NPO PMN for colonoscopy tomorrow with Dr. Fine; if colonoscopy unremarkable, will possibly proceed with EGD following given reports of both black and maroon colored stool
-unable to tolerate PPI
-holding eliquis; last dose 7/9 AM
Subjective
Subjective
Date of Service: February 08, 2025
Patient seen in follow-up, decided to stay to have her procedure performed inpatient instead of deferring to next with as an outpatient with Dr. Villalobos. She reports constipation, otherwise, feels well. No bleeding overnight. Repeat hemoglobin 12.9.
Objective
Data Reviewed
Laboratory Data:
Laboratory Results
02/08/25 05:24
02/07/25 13:36
Laboratory Results
PT 16.0 Sec (11.4-14.6) H 02/07/25 13:36
INR 1.22 02/07/25 13:36
APTT 32.6 Sec (23.4-35.0) 02/07/25 13:36
Total Bilirubin 1.7 mg/dl (0.2-1.3) H 02/07/25 13:36
AST 20 U/L (14-36) 02/07/25 13:36
ALT 15 U/L (0-35) 02/07/25 13:36
Alkaline Phosphatase 56 U/L (38-126) 02/07/25 13:36
Vital Signs and I&O:
Vital Signs
Temp Pulse Resp BP Pulse Ox
97.9 F 56 18 134/45 94
02/08/25 03:02 02/08/25 03:02 02/08/25 03:02 02/08/25 03:02 02/08/25 03:02
I&O
02/07/25 02/08/25 02/09/25
06:59 06:59 06:59
Intake Total 50 / 50
Balance 50 / 50
Physical Exam
Physical Exam
HEENT: Anicteric and Moist mucous membranes
GI: Soft, Non Distended, Non Tender and Normal Bowel Sounds
[2025-02-08] MEDS: TIKOSYN 125 MCG PO ×2 (08:52→21:38)
[2025-02-08] MEDS: ALDACTONE 12.5 MG PO (08:52)
[2025-02-08] MEDS: KCL 20 MEQ PO ×2 (08:53→21:38)
[2025-02-08] MEDS: LASIX 80 MG PO (08:53)
[2025-02-08] MEDS: PEPCID 20 MG PO (08:53)
[2025-02-08] MEDS: CITROMA 300 ML PO (08:55)
--- NOTE | 2025-02-08 10:48 | CM ---
Reviewed the chart notes and spoke with the patient at the bedside. The patient is scheduled for a colonoscopy tomorrow. Patient resides with spouse in a one story home with one step to enter. The patient reports no DME/VN/SNF. The patient
confirmed her [facility] of choice [facility]. CM continues to be available to patient/family and is monitoring medical plan for needs at discharge.
Plan: Discharge to home when medically stable. No needs anticipated at this time.
--- NOTE | 2025-02-08 10:54 | CON.CAR ---
Addendum entered and electronically signed by Raul Owens MD 02/08/25 12:24:
79-year-old woman, history of PVI in March 2024, admitted for HFpEF and started on load for recurrence December 2024, scheduled for ablation January 2025, admitted now with melanotic and burgundy stools, also with epigastric burning, now scheduled for
colonoscopy.
PMH: Left femoral endarterectomy 2021, right subclavian stenosis, hyperlipidemia, statin intolerance, ezetimibe intolerance, hypertension, HFpEF, former smoker
PSH//SH/FH: As noted below
Meds, allergies, ROS: See below
current meds:B12, D3, ascorbic acid, dofetilide 125 every 12, Pepcid 20 daily, furosemide 80 mg a day, losartan 12.5 nightly, magnesium, potassium 20 twice daily, spironolactone 12.5 daily, MiraLAX
134/68, pulse 58, 76 kg, some epigastric distress related to initiation of colonoscopy prep, head neck exam unremarkable, lungs are clear, regular rate and rhythm, no obvious murmurs, extremities without clubbing cyanosis or edema
Sinus rhythm, PACs, PVCs, nonspecific ST and T wave changes, QTc okay
Hemoglobin 12.9, potassium 3.8, troponin undetectable,
Impression: See below
Plan:
See below as per Antonino Rm. Reviewed in detail and agree, unless specifically specified otherwise
From a cardiac standpoint she seems stable despite her melena/hematochezia. Currently she is in sinus rhythm
Eliquis is on hold. And ultimately will be restarted once cleared by GI. Aspirin should be permanently discontinued.
Continue dofetilide. QT interval is acceptable.
At this point it is unclear whether hematochezia will necessitate rescheduling of PVI at the end of the month.
Regarding HFpEF volume status seems appropriate at the present time. Can consider SGLT2 antagonist and. She is already on spironolactone.
Blood pressure is reasonable.
Recent echocardiogram was satisfactory. No ischemia on Lexiscan sestamibi study September 2024.
Original Note:
Consultation
Consultation Request
Date/Time Consultation Performed: 02/08/25
Requesting Provider: Dr. Gallegos
Performing Provider: Izabela Rm PA-C for Dr. RYANNE Owens
Reason for Consultation: GI bleed on OAC
Medical History
-
Chief Complaint: rectal bleeding
History of Present Illness:
Patient is a 79 yo F with PMH of symptomatic PAF s/p PVI 03/2024 without recurrence until 11/2024 when she was admitted for atach vs aflutter and CHF. She sponaneously converted to SR however then recurred with afib and underwent tikosyn loading
12/2024. She is scheduled for ablation with Dr. Nick 02/26/25. She speculates if her recurrence of arrhythmia is secondary to recent covid booster as recurred shortly after receiving it. She states over the last 4 days she has noted grossly bloody
as well as melanotic and dark stools. She states on Tuesday 02/06 she also had associated epigastric burning discomfort. She reports on Wednesday she stopped taking her baby aspirin and the pain resolved. She states this morning she had a BM which was
dark however the end appeared to be more normal in color. She is planned for colonoscopy in AM. Cardiology consulted for evaluation. She denies weight gain, LE edema, SOB. Reports she has been diligent about weighing herself daily, and limiting salt
and fluid intake.
PMH:
Chronic HFpEF
Paroxysmal Afib
s/p successful MADELAINE/CV 03/09/24 with recurrence 03/11/24
Briefly on amiodarone therapy as a bridge to PVI
s/p PVI 03/28/2024
Recurrence of Atach/typical flutter with RVR and then spontaneous conversion to SR 11/2024
Recurrence of A-fib at cardiology office visit 01/02/2025
OAC with eliquis
Multiple medication intolerances
PAD
s/p left femoral endarterectomy 2021
right subclavian stenosis
Hyperlipidemia with statin and Zetia intolerance
HTN
Past Medical History
Past Medical History: Other (in HPI)
Past Surgical History: Cholecystectomy, Tonsilectomy and Other (Left femoral endarterectomy 03/2022)
Social History
Tobacco: Former Smoker
Alcohol: None
Drug: None
Personal:
Living: With Family
Family History
Family History: Other (father with CAD s/p CABG and Afib, daughter from multiple myeloma in 2020)
Allergies / Home Medications
Allergy/AdvReac Type Severity Reaction Status Date / Time
amlodipine Allergy Diarrhea / Verified 02/07/25 12:42
depression
amoxicillin Allergy Pt does Verified 02/07/25 12:42
not
belieive
this is an
allergy
benazepril Allergy Hives-Patient Verified 02/07/25 12:42
unsure
codeine Allergy Nausea / Verified 02/07/25 12:42
Vomiting
dextromethorphan (From Allergy Itching, Verified 02/07/25 12:42
NyQuil) migraine-from
liquid
Nyquil
doxylamine (From NyQuil) Allergy Itching, Verified 02/07/25 12:42
migraine-from
liquid
Nyquil
gatifloxacin (From Tequin) Allergy Shortness Verified 02/07/25 12:42
of Breath,
Hives
hydromorphone (From Dilaudid) Allergy headache Verified 02/07/25 12:42
lactose Allergy diarrhea Verified 02/08/25 03:30
pseudoephedrine (From NyQuil) Allergy Itching, Verified 02/07/25 12:42
migraine
red dye Allergy Hives Verified 02/07/25 12:42
Vjoalul-TKA-GjK Reductase Allergy Aches-Severe Verified 02/07/25 12:42
Inhibitor muscle and
joint pain.
trifluoperazine (From Allergy seizure - Verified 02/07/25 12:42
Stelazine) 1974
gluten AdvReac diarrhea Verified 02/08/25 03:30
�Medication �Instructions �Recorded �Confirmed �Type
cholecalciferol (vitamin D3) 25 1,000 units PO NOON Supplement 01/09/22 02/07/25 History
mcg (1,000 unit) tablet
coenzyme Q10 200 mg capsule (Co 200 mg PO NOON Supplement 01/09/22 02/07/25 History
Q-10)
cyanocobalamin (vitamin B-12) 1,000 mcg PO NOON Supplement 01/09/22 02/07/25 History
1,000 mcg tablet
diazepam 5 mg tablet 5 - 10 mg PO HSPRN PRN ANXIETY 01/09/22 02/07/25 History
flaxseed oil 1,000 mg capsule 1,000 mg PO NOON herbal supplement 01/09/22 02/07/25 History
ascorbic acid (vitamin C) 500 mg 500 mg PO NOON Supplement 01/19/22 02/07/25 History
tablet (Vitamin C)
apixaban 5 mg tablet (Eliquis) 5 mg PO BID Blood clot 05/31/23 02/07/25 Rx
prevention/tx #60 tabs
aspirin 81 mg tablet,delayed 81 mg PO DAILY Blood Clot 03/10/24 02/07/25 History
release Prevention/Tx
famotidine 20 mg tablet (Pepcid) 20 mg PO BID Gastrointestinal Issue 03/10/24 02/07/25 History
magnesium oxide 400 mg (241.3 mg 250 mg PO NOON Supplement 03/10/24 02/07/25 History
magnesium) tablet
acetaminophen 325 mg tablet 650 mg PO Q6HPRN PRN MILD PAIN 12/23/24 02/07/25 History
(Tylenol)
losartan 25 mg tablet 12.5 mg PO QPM Blood Pressure 12/23/24 02/07/25 History
carvedilol 6.25 mg tablet 6.25 mg PO BIDPRN PRN tachycardia 02/07/25 02/07/25 History
dofetilide 125 mcg capsule 125 mcg PO Q12 Arrhythmia 02/07/25 02/07/25 History
(Tikosyn)
furosemide 80 mg tablet 80 mg PO DAILY Fluid 02/07/25 02/07/25 History
Retention/Swelling
potassium chloride 20 mEq 20 meq PO BID Electrolyte Repletion 02/07/25 02/07/25 History
tablet,extended release
spironolactone 25 mg tablet 12.5 mg PO DAILY Heart Failure 02/07/25 02/07/25 History
Review of Systems
-
History Source: Patient
All other systems: Negative unless noted
Physical Exam
Vital Signs
Temp Pulse Resp BP Pulse Ox
98.0 F 58 18 134/68 96
02/08/25 07:50 02/08/25 07:50 02/08/25 07:50 02/08/25 07:50 02/08/25 07:50
Lab Results
02/08/25 05:24
02/07/25 13:36
Troponin I < 0.012 ng/ml 02/07/25 13:36
Physical Exam
General: No Apparent Distress, Comfortable and Other (sitting in chair)
HEENT: Normocephalic, Anicteric and Moist Mucous Membranes
Respiratory: Clear and Non Labored Respirations
Cardiac: S1/S2 and Regular Rhythm (with ectopy)
GI: Soft, Non Tender, Non Distended and Normal Bowel Sounds
Musculoskeletal: No Clubbing, No Cyanosis and No Edema
Skin: Warm and Dry
Neuro: AO x 3
Impression / Plan
-
PCP: Dr. Pierre
Primary Yard Jockey: Dr. Nick
Impression:
Presentation with BRBPR
GI bleed
Paroxysmal Afib
s/p successful MADELAINE/CV 03/09/24 with recurrence 03/11/24
Briefly on amiodarone therapy as a bridge to PVI
s/p PVI 03/28/2024
Recurrence of Atach/typical flutter with RVR and then spontaneous conversion to SR 11/2024
Recurrence of A-fib at cardiology office visit 01/02/2025
started tikosyn 12/2024
planned for repeat PVI 02/26/25
OAC with Eliquis
Chronic HFpEF
Multiple medication intolerances
PAD
s/p left femoral endarterectomy 2021
right subclavian stenosis
Hyperlipidemia with statin and Zetia intolerance
HTN
Lexiscan nuclear stress September 2024: Probably normal study. There is a predominantly fixed small, mild defect in the apical inferior and mid inferior segments most consistent with bowel attenuation noted in this region. No significant ischemia is
seen. Systolic function is mildly reduced. The ejection fraction is 42%. Compared with the study performed on 01/02/2022. There is decreased left ventricular ejection fraction from 61% to 42%.
Echo 01/28/24: EF 61%, no regional wall motion abnormalities noted, mild concentric LVH, mild MR, mild TR, PAP 25-30 mmHg
Echo 10/02/24: EF 50 to 54%, normal RV size and function, mild MR, mild TR, no pericardial effusion.
Echo 01/10/2025: EF 50 to 55%, mild MR, mild TR
Plan:
- Patient presents with 4 days of GI bleeding
- Hemoglobin stable at 12.9
- Eliquis on hold, last dose 02/07 AM. Stop baby aspirin moving forward to reduce bleeding risk
- Plan for colonoscopy in a.m. per GI
- In sinus rhythm with frequent ectopy on review of telemetry and review of EKG. Continue Tikosyn, QTc stable by EKG. She reports she has only been taking Coreg for recurrences of sustained palpitations/tachycardia as baseline heart rates in 50s
normally
- We discussed addition of SGLT2 inhibitor, however does not appear to be in heart failure at present and she prefers to hold off on addition for now
- appears euvolemic on po lasix 80mg daily and CXR without acute abnormality
- most recent echo 01/10/25 as above
- discussed CHF education
- currently scheduled for PVI 02/26. she wants to keep this appt if at all possible. discussed will need to reassess based on findings of GI work up however may need to be postponed.
HPI: Patient came to [facility] ER yesterday afternoon with chest pain and SOB and was admitted with acute HF and cardiology is consulted. Patient was just admitted for acute HFpEF 12/23/2024 until 12/25/2024 and during that admission was noted to have a
symptomatic recurrence of atrial fibrillation and then spontaneous conversion to sinus rhythm. Patient has a longstanding history of atrial arrhythmia and had rapid recurrence of A-fib following successful cardioversion back in 03/2024 leading to
amiodarone addition as a bridge to ablation therapy which was successfully performed with a PVI on 03/28/2024. Patient seemed to be doing well until she had a symptomatic recurrence of atrial arrhythmia in the form of A. tach/typical atrial flutter
resulting in an acute HFpEF and admission 12/23/2024. During that admission patient then spontaneously converted to SR and was IV diuresed. Patient was seen in the cardiology office for follow-up on 01/02/2025 was found to be in A-fib. Patient's
Coreg dose was increased and she was set up with EP appointment and preliminarily scheduled for repeat PVI 02/26/2025. Patient says that she has continued to have intermittent palpitations and feels that her blood pressure is up and down with this.
With all of this she gets very symptoms including palpitations shortness of breath and chest pressure. Patient came to the ER with the symptoms and was found to be in SR and no obvious recurrence of atrial arrhythmia on telemetry monitoring thus
far.
Data Reviewed
-
EKG: Tracing Personally Visualized and interpreted
Radiology: Report Reviewed by me
Medical Tests (Nuc Med, Echo etc): Report Reviewed by me
Labs: Labs Reviewed by me
Old Records: Reviewed
[2025-02-08] MEDS: MAALOX 30 ML PO (12:33)
[2025-02-08 15:05] VITALS: BP 134/73
[2025-02-08] MEDS: NULYTELY SOLUTION 4 LITERS PO (15:58)
[2025-02-08] MEDS: COZAAR 12.5 MG PO (17:33)
[2025-02-08 19:30] VITALS: BP 143/88; BP 146/77; BP 154/55; PULSE 63; PULSE 67
[2025-02-08 23:00] VITALS: BP 126/50
[2025-02-09 03:00] VITALS: BP 119/65
[2025-02-09 06:00] VITALS: BMI 28.5
[2025-02-09 07:12] VITALS: BP 115/51
--- NOTE | 2025-02-09 07:57 | W.PN.HOSP.TC ---
Today's Communication/Plan
-
Discharge planning today
Assessment / Plan
Assessment / Plan
Physical exam:
General: Well Developed, Well Nourished and No Apparent Distress
HEENT: Normocephalic, Atraumatic and Moist Mucous Membranes
Respiratory: Clear to Auscultation; Negative Wheezes, Rales or Rhonchi
Cardiac: Regular Rhythm and S1/S2
GI: Soft, Nontender and Nondistended
Musculoskeletal: No Clubbing, No Cyanosis and No Edema
Neuro: Awake, Alert and Oriented
Psych: Calm
A/P:
Acute GI bleed due to diverticular disease:
EGD normal
Colonoscopy with findings of diverticulosis
Diet as tolerated
GI consult appreciated
Holding Eliquis and can restart tomorrow per GI
No need for PPI
GI cleared her for discharge today
Chronic HFpEF:
Continue diuretic
Continue GDMT
Continue monitor volume status
Paroxysmal A-fib:
Continue with dofetilide
On beta-blockers as needed
Anticoagulation can be restarted tomorrow by GI recommendations
Cardiology recommend discontinue aspirin
Plan for ablation as outpatient coming weeks
Other medical problems include:
Hypertension
Hyperlipidemia
Anemia
PVD
Anxiety
DVT prophylaxis:
SCD
CODE STATUS:
Full code
Anticipated Discharge: Today
Subjective/Interval History
-
Date of Service: February 09, 2025
Patient feels well today. She had bowel prep and no further bleeding.
Objective Data
-
Labs:
Laboratory Results
02/09/25
07:26
WBC Pending
Hgb Pending
Hct Pending
Plt Count Pending
Sodium Pending
Potassium Pending
Chloride Pending
Carbon Dioxide Pending
BUN Pending
Creatinine Pending
Glucose Pending
Calcium Pending
Vital Signs:
Vital Signs
Temp Pulse Resp BP Pulse Ox
98.0 F 55 18 115/51 95
02/09/25 07:12 02/09/25 07:12 02/09/25 07:12 02/09/25 07:12 02/09/25 07:12
I&O
02/08/25 02/09/25 02/10/25
06:59 06:59 06:59
Intake Total 50 / 50 1340 / 1340
Balance 50 / 50 1340 / 1340
[2025-02-09 08:04] LABS: Hematocrit 40.2 % (37.0-47.0); Hemoglobin 13.7 g/dL (12.0-16.0); Mean Corp Hgb Conc. 34.1 g/dL (33.0-37.0); Mean Corpuscular Volume 89.5 fL (81.0-99.0); Platelet Count 189 10^3/uL (130-400); Red Cell Dist. Width 12.6 % (11.5-14.5)
[2025-02-09 08:27] LABS: Blood Urea Nitrogen 17 mg/dl (7-17); Calcium 8.8 mg/dl (8.4-10.2); Carbon Dioxide 28 mmol/L (22-30); Chloride 107 mmol/L (98-107); Estimated Creatinine Clearance 59 ml/min; Glucose 79 mg/dl (70-99); Potassium 3.9 mmol/L (3.5-5.1); Sodium 140 mmol/L (135-145); eGFR > 60.00
[2025-02-09] MEDS: LASIX 80 MG PO (08:57)
[2025-02-09] MEDS: ALDACTONE 12.5 MG PO (08:57)
[2025-02-09] MEDS: TIKOSYN 125 MCG PO (08:57)
[2025-02-09] MEDS: PEPCID 20 MG PO (08:57)
[2025-02-09] MEDS: KCL 20 MEQ PO (08:57)
--- NOTE | 2025-02-09 10:19 | CM ---
Addendum entered by Shirley Huizar RN 02/09/25 12:02:
IMM on chart. Patient's daughter to provide transportation home.
Original Note:
Reviewed the chart notes. Patient for colonoscopy today. CM continues to be available to patient/family and is monitoring medical plan for needs at discharge.
Plan: Discharge to home when medically stable. No needs anticipated at this time.
[2025-02-09 11:06] VITALS: BP 122/89; BP_SYST 18
--- NOTE | 2025-02-09 11:11 | W.DCSUMMARY ---
Discharge Summary
Discharge Data
Date of Admission: 02/07/25
Date of Discharge: 02/09/25
Total time spent discharging patient (in min): 37
-
Pending Results: No
Hospital Course
Patient is 79 years old female history of A-fib, CHF, presented to the hospital with melena and evidence of GI bleed. GI and cardio consulted. Her anticoagulation was placed on hold. Cardio recommended to discontinue aspirin indefinitely. She
underwent upper endoscopy without any significant acute abnormalities and she also underwent colonoscopy that found that she had significant diverticular disease and internal hemorrhoids. It was felt that diverticular disease was the etiology of
her GI bleeding. GI recommended to continue hold anticoagulation for today and restart anticoagulation tomorrow. Will have her follow-up hemoglobin as outpatient. Otherwise patient is hemodynamically stable and hemoglobin has remained stable.
Her hemoglobin is 13.7 upon discharge. She will be discharged in relatively stable condition today.
Discharge management: 37 minutes
Discharge Plan
-
Patient Disposition: Home (Routine Discharge)
Discharge Diagnosis/Procedures: Suspicion for acute gastrointestinal bleed.
Diet: Low Cholesterol
Activity: As tolerated
Blood Work: Please PCP to order CBC, BMP
Referrals:
Chucky Pierre MD [Family Provider, [facility]] - in less than 1 week
Prescriptions:
Continued
cholecalciferol (vitamin D3) 1,000 UNITS tablet
1,000 units PO NOON
cyanocobalamin (vitamin B-12) 1,000 MCG tablet
1,000 mcg PO NOON
flaxseed oil 1,000 MG capsule
1,000 mg PO NOON
diazepam 5 MG tablet
5 - 10 mg PO HSPRN PRN (Reason: ANXIETY)
coenzyme Q10 [Co Q-10] 200 MG capsule
200 mg PO NOON
ascorbic acid (vitamin C) [Vitamin C] 500 MG tablet
500 mg PO NOON
famotidine [Pepcid] 20 mg Tablet
20 mg PO BID
magnesium oxide 400 mg (241.3 mg magnesium) Tablet
250 mg PO NOON
losartan 25 mg Tablet
12.5 mg PO QPM
acetaminophen [Tylenol] 325 mg Tablet
650 mg PO Q6HPRN PRN (Reason: MILD PAIN)
carvedilol 6.25 mg tablet
6.25 mg PO BIDPRN PRN (Reason: tachycardia)
dofetilide [Tikosyn] 125 mcg capsule
125 mcg PO Q12
spironolactone 25 mg tablet
12.5 mg PO DAILY
furosemide 80 mg tablet
80 mg PO DAILY
potassium chloride 20 mEq tablet extended release
20 meq PO BID
Held
Eliquis 5 mg Tablet
5 mg PO BID Qty: 60 11RF
Hold Instructions: Resume on 02/10/25.
Discontinued
aspirin 81 mg Tablet,Delayed Release (Dr/Ec)
81 mg PO DAILY
Discharge Orders:
Discharge Patient (As Directed); Ordered 02/09/25
Ordered By: Dylan Gallegos
Discharge Date and Time
Print Language: [place]
[2025-02-09 11:21] VITALS: BP 135/62; BP_SYST 18
[2025-02-09 11:33] VITALS: BP 143/70; BP_SYST 18
[2025-02-09 11:34] VITALS: BP 143/70; BP_SYST 18
== END 2025-02-09 14:01 | disposition home or self-care (01) | DRG 378 ==
LOC: 2 SOUTH 16:59
PROVIDERS: Internal Medicine Gastroenterology; Nurse Practitioner Family; ADMITTING PHYSICIAN Internal Medicine; ATTENDING PHYSICIAN Hospitalist; CONSULT PHYSICIAN Internal Medicine; EMERGENCY PHYSICIAN Emergency Medicine; FAMILY PHYSICIAN Family Medicine; OTHER PHYSICIAN Internal Medicine Cardiovascular Disease
PROC: 0DJD8ZZ Inspection of Lower Intestinal Tract, Via Natural or Artificial Opening Endoscopic (ICD-10-PCS; 2025-02-09)
PROC: 0DB78ZX Excision of Stomach, Pylorus, Via Natural or Artificial Opening Endoscopic, Diagnostic (ICD-10-PCS; 2025-02-09)
DX: K57.31 Diverticulosis of large intestine without perforation or abscess with bleeding (principal); I50.32 Chronic diastolic (congestive) heart failure; K58.8 Other irritable bowel syndrome; I73.9 Peripheral vascular disease, unspecified; I48.0 Paroxysmal atrial fibrillation; E78.00 Pure hypercholesterolemia, unspecified; F41.9 Anxiety disorder, unspecified; I11.0 Hypertensive heart disease with heart failure; E83.42 Hypomagnesemia; D64.9 Anemia, unspecified; J44.9 Chronic obstructive pulmonary disease, unspecified; K31.89 Other diseases of stomach and duodenum; K21.9 Gastro-esophageal reflux disease without esophagitis; Z79.01 Long term (current) use of anticoagulants; Z79.82 Long term (current) use of aspirin; Z87.891 Personal history of nicotine dependence; Z90.49 Acquired absence of other specified parts of digestive tract; Z85.828 Personal history of other malignant neoplasm of skin; Z85.820 Personal history of malignant melanoma of skin; Z86.0100 Personal history of colon polyps, unspecified; Z86.16 Personal history of COVID-19; Z87.01 Personal history of pneumonia (recurrent); Z88.0 Allergy status to penicillin; Z88.5 Allergy status to narcotic agent; Z88.8 Allergy status to other drugs, medicaments and biological substances; Z82.49 Family history of ischemic heart disease and other diseases of the circulatory system; Z80.7 Family history of other malignant neoplasms of lymphoid, hematopoietic and related tissues; Z81.1 Family history of alcohol abuse and dependence; Z82.5 Family history of asthma and other chronic lower respiratory diseases
CPT/HCPCS: 80048; 80053; 84484; 85014; 85018; 85025; 85027; 85610; 85730; 86850; 86900; 86901; 88305; 88342; 93005; 96374; 99285

== ENCOUNTER → 2025-04-24 08:29 | Outpatient (REF) | payer MEDICARE, OTHER, SELFPAY | LOC: DHVS 08:29 | PROVIDERS: ATTENDING PHYSICIAN Surgery Vascular Surgery; FAMILY PHYSICIAN Family Medicine | DX: I77.9 Disorder of arteries and arterioles, unspecified (principal); I65.23 Occlusion and stenosis of bilateral carotid arteries | CPT/HCPCS: 93880; 93922; 93923; 93925; 93930; 93978 ==

== ENCOUNTER → 2025-04-30 08:52 | Outpatient (REF) | payer MEDICARE, OTHER, SELFPAY | LOC: RAD 08:52 | PROVIDERS: ATTENDING PHYSICIAN Internal Medicine Cardiovascular Disease; FAMILY PHYSICIAN Family Medicine | DX: I10 Essential (primary) hypertension (principal); I48.0 Paroxysmal atrial fibrillation; I50.30 Unspecified diastolic (congestive) heart failure | CPT/HCPCS: 78803; A9538 ==

== ENCOUNTER → 2025-07-03 17:32 | Outpatient (REF) | payer MEDICARE, OTHER, SELFPAY | LOC: PAVMRI 17:32 | PROVIDERS: ATTENDING PHYSICIAN Physician Assistant Medical; FAMILY PHYSICIAN Family Medicine | DX: M48.02 Spinal stenosis, cervical region (principal); R26.89 Other abnormalities of gait and mobility; M48.062 Spinal stenosis, lumbar region with neurogenic claudication; M41.50 Other secondary scoliosis, site unspecified | CPT/HCPCS: 72141; 72148 ==

== ENCOUNTER → 2025-07-27 12:52 | Outpatient (REF) | payer MEDICARE, OTHER, SELFPAY | LOC: HWRAD 12:52 | PROVIDERS: ATTENDING PHYSICIAN Family Medicine | DX: K83.8 Other specified diseases of biliary tract (principal) | CPT/HCPCS: 76700 ==